=== PATIENT | female | born 1970 | race Caucasian/White ===

== ENCOUNTER 2023-03-15 14:30 | Inpatient (IN) | payer OTHER, SELFPAY ==
[2023-03-15] VITALS (7 sets, daily range): BP systolic 125–182; BP diastolic 73–97; PULSE 82–102; RESP 15–17; TEMP 36.4–36.8; O2SAT 96–100; BMI 24.2
--- NOTE | ~2023-03-15 | CT_ITS ---
EXAMINATION: CT HEAD WITHOUT CONTRAST CLINICAL INFORMATION: Altered mental status. COMPARISON: None available. TECHNIQUE: Contiguous axial imaging was performed from the skull base to vertex without intravenous administration of contrast. This CT examination was performed using dose optimization techniques as appropriate, variously including the following: *Automated exposure control *Adjustment of mA and/or kV according to patient size (this includes techniques or standardized protocols for targeted exams where dose is matched to indication/reason for exam; i.e. extremities or head) *Use of iterative reconstruction technique DLP: 642 mGy-cm FINDINGS: No intracranial hemorrhage, tumors or acute infarcts are noted. The ventricles and sulci are normal in size and configuration. No focal parenchymal lesions the brain or abnormal extra-axial fluid collections identified. The orbits and globes are normal in appearance. No significant opacification of the visualized paranasal sinuses, mastoid air cells and middle ear cavities. Mild hyperostosis frontalis interna incidentally noted. CT/CT head/brain wo IV con IMPRESSION: No acute intracranial abnormalities.
--- NOTE | 2023-03-15 14:47 | ECG_ITS ---
Test Reason : AMS Blood Pressure : / mmHG Vent. Rate : 084 BPM Atrial Rate : 084 BPM P-R Int : 136 ms QRS Dur : 082 ms QT Int : 392 ms P-R-T Axes : 054 072 -18 degrees QTc Int : 463 ms Normal sinus rhythm RSR' or QR pattern in V1 suggests right ventricular conduction delay Nonspecific T wave abnormality Abnormal ECG When compared with ECG of 13-MAY-2017 10:00, T wave inversion now evident in Inferior leads Anterolateral leads Referred By: Wilma Carpio Electronically Signed By:CHRISTINA MIMS MD
[2023-03-15 15:04] LABS: Glucose, Whole Blood 85 mg/dL (60-115)
[2023-03-15] MEDS: 0.9 % Sodium Chloride 1,000 ML 999 ML IV ×2 (15:20→18:24)
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
[2023-03-15 16:09] LABS: Appearance Urine Clear; Color Urine Yellow; Glucose Urine UA 100 mg/dL (Negative); Leukocyte Esterase Urine Negative (Negative); Nitrite Urine Negative (Negative); PH 5.5 (5.0-9.0); Specific Gravity - Urine 1.015 (1.005-1.025); Urine Blood Negative (Negative); Urine Ketones 40 mg/dL (Negative); Urine Protein Negative (Neg-Trace)
[2023-03-15 16:38] LABS: INTERNATIONAL NORM RATIO 1.3 (0.9-1.1)
[2023-03-15 16:40] LABS: Ammonia 27 umol/L (13-55)
[2023-03-15 16:41] LABS: Partial Thromboplastin Time 25.6 SEC (26.0-36.4)
[2023-03-15 16:46] LABS: Alanine Aminotransferase 63 U/L (0-31); Albumin Level 4.3 g/dL (3.5-5.0); Alkaline Phosphatase 224 U/L (39-117); Anion Gap 17 (12-20); Aspartate Amino Transferase 48 U/L (5-31); Blood Urea Nitrogen 11 mg/dL (9-16); Calcium 9.8 mg/dL (8.4-10.2); Carbon Dioxide 24 mmol/L (22-29); Chloride 105 mmol/L (96-108); Creatinine Clr Calc Pharmacy 90.9; Estimated Glomerular Filt Rate > 60; Ethanol < 10 mg/dL; Glucose Random 92 mg/dL (60-115); Magnesium 2.4 mg/dL (1.6-2.6); Potassium 3.6 mmol/L (3.3-5.1); Sodium 142 mmol/L (135-145); Total Protein 7.1 g/dL (6.5-8.0)
[2023-03-15 16:51] LABS: Acetaminophen LAB < 3 mcg/mL (<30)
[2023-03-15 16:56] LABS: Salicylate < 5.0 mg/dL (15-30); Troponin-I High Sensitivity < 2.7 ng/L (<3.5-17.0)
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
[2023-03-15 17:04] LABS: Influenza A PCR NEGATIVE (Negative); Influenza B PCR NEGATIVE (Negative); Resp Syncy Virus RNA Qual PCR NEGATIVE (Negative); SARS COV2 PCR INHOUSE NEGATIVE (Negative)
--- NOTE | 2023-03-15 17:08 | PC.NURSE ---
PHLEBOTOMY CONTACTED FOR CBC REDRAW
[2023-03-15 17:18] LABS: Amphetamine Screen Urine Not Detected (Not Detect); Barbiturates, Urine Not Detected (Not Detect); Benzodiazepines Screen Urine Not Detected (Not Detect); Cannabinoid Screen Urine Not Detected (Not Detect); Cocaine Screen Urine Not Detected (Not Detect); Fentanyl, urine Not Detected (Not Detect); Opiate Screen Urine Not Detected (Not Detect); Phencyclidine Screen Urine Not Detected (Not Detect)
[2023-03-15 17:27] LABS: Basophils Absolute Auto 0.1 X10*3/uL (0.0-0.2); Basophils Percent Auto 0.5 % (0-2); Eosinophils Absolute Auto 0.1 X10*3/uL (0.0-0.4); Eosinophils Percent Auto 1.2 % (0-4); Hematocrit 40.7 % (37.0-47.0); Hemoglobin 13.2 g/dl (12.0-16.0); Imm Gran Abs Auto 0.06 X10*3/uL (0.00-0.03); Imm Gran Pct Auto 0.6 % (0.0-0.4); Lymphocytes Absolute Auto 2.7 X10*3/uL (1.2-4.9); Lymphocytes Percent Auto 25.7 % (20-40); MANUAL DIFF FLAG SCAN; Mean Corpuscular HGB Conc 32.4 g/dl (31.0-35.0); Mean Corpuscular Hemoglobin 27.7 pg (27.0-33.0); Mean Corpuscular Volume 85.5 fL (80.0-98.0); Mean Platelet Volume 10.3 fL (9.4-12.3); Monocytes Absolute Auto 0.9 X10*3/uL (0.1-1.2); Monocytes Percent Auto 8.9 % (2-11); Neutrophils Absolute Auto 6.5 x10*3/uL (2.0-8.3); Neutrophils Percent Auto 63.1 % (45-73); PLT CLUMP 1; Red Blood Count 4.76 X10*6/uL (4.20-5.50); Red Cell Distribution Width 14.5 % (11.0-16.0); SCAN SMEAR FLAG 1
[2023-03-15 18:25] LABS: SLIDE REVIEW VERIFIED
--- NOTE | 2023-03-15 18:44 | PC.NURSE ---
LAB CONTACTED FOR SLIDE REVIEW OF CBC
[2023-03-15 18:50] LABS: Platelet Count 205 X10*3/uL (160-400); White Blood Count 10.3 X10*3/uL (4.8-10.8)
--- NOTE | 2023-03-15 20:51 | PC.NURSE ---
vss and up to date at this time. pt c/o no pain. pt still displays w/ ams. easy to redirect. incomprehensible speech when conversing w/ pt. pt transitioned into hospital bed w/ bed alarm turned on for safety precautions. pt attempted to get out of bed w/ no clothes on multiple times. pt repositioned to comfort. purewick in place. respirations remain even and unlabored. call otoole placed within reach.
--- NOTE | 2023-03-15 21:50 | PC.NURSE ---
pt currently resting/asleep in no apparent distress at this time. respirations even and unlabored. bed alarm turned on for safety precautions. call otoole placed within reach.
--- NOTE | 2023-03-16 02:12 | MHC.CARE ---
Pt. is currently uninterviewable. CARE team will assess her in the morning. If her son calls please get his call back number for collateral contact purpose.
[2023-03-16 05:29] VITALS: BP 158/90; PULSE 72; RESP 16; TEMP 36.7; O2SAT 96
--- NOTE | 2023-03-16 05:53 | PC.NURSE ---
pt slept most of the shift, repositioned in bed , helped with adl's and pt calm and cooperative, bed alarm set on bed
--- NOTE | 2023-03-16 09:20 | PC.NURSE ---
slept all morning, easily woken, skin wpd, states she has been taking all her meds, pharmacy contacted for med rec, denies hallucinations, denies si
[2023-03-16 09:22] VITALS: BP 155/77; PULSE 72; RESP 18; TEMP 36.5; O2SAT 97
[2023-03-16] MEDS: LORazepam 1 MG TABLET PO (14:49)
--- NOTE | 2023-03-16 15:27 | PHA.MEDREC ---
Pharmacy Consult ? Medication Reconciliation Pharmacy has completed the medication reconciliation. Spoke to patient and verified medication list. In regards to clozapine 200mg, patient said that she's on a low dose and she cuts the tablet in half daily. [place] text was sent to Dr. Doug Jones at 1300 03/16/23 for consultation but never heard back. Since patient has been filling 200mg tablets at [place], dose was put in as 100mg (because she cuts it in halves).
[2023-03-16 17:29] LABS: COVID-19 Test Negative (Negative); IDNOW Serial# 08D9AD1C
--- NOTE | 2023-03-16 18:09 | PC.NURSE ---
explained to patient about temporary change in dosing for clozaril.
[2023-03-16] MEDS: Magnesium Oxide 400 MG TABLET PO (18:27)
[2023-03-16] MEDS: Empagliflozin 10 MG TABLET PO (18:27)
[2023-03-16] MEDS: Atorvastatin Calcium 40 MG TABLET PO (18:27)
[2023-03-16] MEDS: metFORMIN HCl 1,000 MG TABLET 1000 MG PO (18:27)
[2023-03-16] MEDS: Milk of Magnesia 30 ML ORAL.SUSP PO (18:54)
[2023-03-16 20:12] VITALS: BP 150/83; PULSE 85; RESP 18; TEMP 36.8; O2SAT 95
[2023-03-16] MEDS: cloZAPine 25 MG TABLET 50 MG PO (20:16)
--- NOTE | 2023-03-16 20:21 | PC.NURSE ---
Patient is currently in her room, calm and quiet, compliant with HS medication, behavior non concerning, disposition per care team is section-12 inpatient bed search, labs completed/resulted, no distress observed/reported at this time, VSS, will continue to monitor.
[2023-03-17 06:13] VITALS: BP 121/89; PULSE 116; RESP 17; TEMP 36.3; O2SAT 95
[2023-03-17] MEDS: Omeprazole 20 MG CAPSULE.DR PO (06:19)
--- NOTE | 2023-03-17 06:22 | PC.NURSE ---
Patient slept through the night, incontinence of both bowel and bladder, showered, incontinence care and support provided, medication compliant, disposition is section 12 inpatient bed search, behavior non concerning, will continue to monitor./
[2023-03-17] MEDS: Ferrous Sulfate 324 MG TABLET.DR PO (09:32)
[2023-03-17] MEDS: Empagliflozin 10 MG TABLET PO (09:32)
[2023-03-17] MEDS: metFORMIN HCl 1,000 MG TABLET 1000 MG PO (09:33)
[2023-03-17] MEDS: Magnesium Oxide 400 MG TABLET PO (09:33)
[2023-03-17] MEDS: Atorvastatin Calcium 40 MG TABLET PO (09:33)
[2023-03-17] MEDS: LORazepam 1 MG TABLET PO ×2 (09:44→16:01)
--- NOTE | 2023-03-17 13:36 | PC.NURSE ---
Patient has been resting comfortably, respirations even and unlabored, skin pwd, offers no complaints at this time. Patient occasionally pacing around BH pod. Requesting Ativan at this time. This RN educated patient that it was not due till a later time. Patient agreeable to plan at this time. Patient has visitor
[2023-03-17 14:54] VITALS: RESP 18
[2023-03-17 16:55] LABS: Alanine Aminotransferase 69 U/L (0-31); Albumin Level 4.6 g/dL (3.5-5.0); Alkaline Phosphatase 250 U/L (39-117); Aspartate Amino Transferase 46 U/L (5-31); Bilirubin Direct 0.3 mg/dL (0.0-0.5); Bilirubin Total 0.7 mg/dL (0.0-1.0); Cholesterol 121 mg/dL (<200); HCG Quantitative 4 mIU/mL; HDL Cholesterol 36 mg/dL (>40); LDL Cholesterol Calculated 64 mg/dL (<100); Total Protein 7.8 g/dL (6.5-8.0); Triglycerides 106 mg/dL (<150)
[2023-03-17] MEDS: Nicotine 21 MG PATCH.TD24 TRANSDERMA (16:57)
[2023-03-17 17:08] LABS: Estimated Average Glucose 120 mg/dL; Hemoglobin A1C 150.7072 umol/L; Hemoglobin A1c % 5.8 % (<6.0)
[2023-03-17 18:05] VITALS: BP 168/77; PULSE 100; RESP 16; TEMP 36.6; O2SAT 98; BMI 26.6
[2023-03-17] MEDS: hydrOXYzine HCL 25 MG TABLET PO (18:56)
[2023-03-17] MEDS: LORazepam 1 MG TABLET 2 MG PO (18:57)
[2023-03-17] MEDS: Acetaminophen 325 MG TABLET 650 MG PO (18:57)
[2023-03-17] MEDS: cloZAPine 100 MG TABLET PO (18:58)
--- NOTE | 2023-03-17 22:40 | PC.ADMIT ---
Pt is a 52 year old female admitted for Si, Disorganization and med noncompliant. Pt is alert and oriented to self, Vitals signs are stable, Covid negative, Tox screen is negative. Pt appears lethargic and sedated during admission assessment. Pt denies depression and anxiety. Impulse, insight and judgment is poor. Speech is tangential, regular rhythm but low tone. Pt refused flu shot .Some laboratory levels are off. Pt is in her room resting. Admission orders obtained.
[2023-03-18] MEDS: Omeprazole 20 MG CAPSULE.DR PO (06:09)
[2023-03-18] MEDS: Empagliflozin 10 MG TABLET PO (09:13)
[2023-03-18] MEDS: Atorvastatin Calcium 40 MG TABLET PO (09:13)
[2023-03-18] MEDS: Magnesium Oxide 400 MG TABLET PO (09:13)
[2023-03-18] MEDS: Ferrous Sulfate 324 MG TABLET.DR PO (09:13)
[2023-03-18] MEDS: Thiamine HCL 100 MG TABLET PO (09:13)
[2023-03-18] MEDS: metFORMIN HCl 1,000 MG TABLET 1000 MG PO (09:13)
[2023-03-18] MEDS: Folic Acid 1 MG TABLET PO (09:13)
[2023-03-18 09:35] VITALS: BP 123/81; PULSE 107; RESP 16; TEMP 36.6; O2SAT 98
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
[2023-03-18] MEDS: LORazepam 1 MG TABLET 2 MG PO (16:42)
[2023-03-18 16:54] VITALS: BP 134/83; PULSE 109; RESP 16; TEMP 36.3; O2SAT 94
[2023-03-18] MEDS: LORazepam 1 MG TABLET PO (20:01)
[2023-03-18] MEDS: cloZAPine 100 MG TABLET PO (20:01)
[2023-03-19] MEDS: Omeprazole 20 MG CAPSULE.DR PO (06:28)
[2023-03-19 08:44] VITALS: BP 120/84; PULSE 107; RESP 16; TEMP 36.4; O2SAT 98
[2023-03-19] MEDS: Magnesium Oxide 400 MG TABLET PO (09:02)
[2023-03-19] MEDS: Atorvastatin Calcium 40 MG TABLET PO (09:03)
[2023-03-19] MEDS: Folic Acid 1 MG TABLET PO (09:03)
[2023-03-19] MEDS: metFORMIN HCl 1,000 MG TABLET 1000 MG PO (09:03)
[2023-03-19] MEDS: Thiamine HCL 100 MG TABLET PO (09:03)
[2023-03-19] MEDS: Ferrous Sulfate 324 MG TABLET.DR PO (09:03)
[2023-03-19] MEDS: Empagliflozin 10 MG TABLET PO (09:03)
[2023-03-19] MEDS: Acetaminophen 325 MG TABLET 650 MG PO ×2 (11:01→17:55)
[2023-03-19] MEDS: hydrOXYzine HCL 25 MG TABLET PO (11:02)
--- NOTE | 2023-03-19 14:36 | P.PNPSI_ITS ---
Subjective Subjective Date of Service: 03/19/23 Reason For Visit: Dysregulated Subjective Notes: Conditional Voluntary Healthcare Proxy: No Guardianship: No Medical Problems Affecting Mental Status: No Interim History: Isolative in her room. Rhyming sentences at times which seem to offer her comfort Distracted, some confusion, sadness, states she is not sure how this illness became so overpowering Discussion, offered support. Denies medication SE, adverse effects Medication Compliance: Yes Side effects from medications: No Attending Groups: No Review of Systems Acute medical concerns: No Review of Systems Review of Systems Yes Unobtainable due to mental status Mental Status Exam Mental Status Exam Patient Appearance: Fatigued, Disheveled and Bizarre Patient Orientation: Person and Place Level of Consciousness: Alert Patient Behavior: Talkative, Cooperative, Restless, Anxious, Fearful, Avoidant, Fatigued, Distractible, Confused and Poor Eye Contact Mood Description: Apathetic, Suspicious, Withdrawn, Depressed, Fearful, Anxious, Labile, Flat, Nervous, Apprehensive and Expansive Affect Description: Labile Patient Cognition Impaired: No Ability to Follow Directions: Fair Speech Pattern: Perseverating, Spontaneous Speech, Rambling, Soft-Spoken, Rapid, Excessive, Pressured and Poor Articulation Memory Description: Remote Impaired Hallucinations: Auditory Delusions: Paranoid Ideation and Present Perceptual Disturbances: Depersonalization and Derealization Thought Process: Racing, Distracted and Rumination Thought Content: positive for Flight of Ideas, positive for Racing, positive for Circumstantial, positive for Perseveration, positive for Preoccupation, positive for Loose Associations, positive for Thought Blocking, positive for Tangential, positive for Disorganized and positive for Evasive Depressive Symptoms: Increased Anxiety, Hopelessness, Unhappiness, Increased Fatigue, Low Self Esteem, Loss of Energy and Difficulty Concentrating Abnormal Motor Activity Signs and Symptoms: Restlessness Judgement: Poor Diagnostics Vital Signs (24Hr): Vital Signs - 24 hr 03/18/23 16:54 03/19/23 08:44 Temperature 97.4 F 97.5 F Pulse Rate 109 H 107 H Respiratory Rate 16 16 Blood Pressure 134/83 120/84 Pulse Oximetry 94 98 Oxygen Delivery Method Room Air Room Air BMI result Body Mass Index 26.6 Labs 03/15/23 17:16 03/15/23 16:16 Labs: Laboratory Results - last 48 hr 03/17/23 16:18 Estimat Average Glucose 120 Hemoglobin A1c % 5.8 Total Bilirubin 0.7 Direct Bilirubin 0.3 AST 46 H ALT 69 H Alkaline Phosphatase 250 H Total Protein 7.8 Albumin 4.6 Triglycerides 106 Cholesterol 121 LDL Cholesterol, Calc 64 HDL Cholesterol 36 L Beta HCG, Quant 4 Imaging Radiology Impressions: ITS Impressions Head CT 03/15/23 15:32 IMPRESSION: No acute intracranial abnormalities. Medications Medications Current Medications Acetaminophen (Acetaminophen 325 Mg Tablet) 650 mg PO Q6H PRN PRN Reason: Headache/Pain Mild Scale (1-3) Last Admin: 03/19/23 11:01 Dose: 650 mg Al Hydroxide/Mg Hydroxide (Magnesium Hydrox/Alum Hydrox 30 Ml Oral.Susp) 30 ml PO Q6H PRN PRN Reason: Heartburn/Nausea Albuterol Sulfate (Albuterol Sulfate 90 Mcg 8 Gm Inhaler) 2 puff INHALE Q6H PRN PRN Reason: Wheezing Atorvastatin Calcium (Atorvastatin Calcium 40 Mg Tablet) 40 mg PO DAILY [facility] Last Admin: 03/19/23 09:03 Dose: 40 mg Clozapine (Clozapine 100 Mg Tablet) 100 mg PO BEDTIME [facility] Last Admin: 03/18/23 20:01 Dose: 100 mg Empagliflozin (Empagliflozin 10 Mg Tablet) 10 mg PO DAILY [facility] Last Admin: 03/19/23 09:03 Dose: 10 mg Ferrous Sulfate (Ferrous Sulfate 324 Mg Tablet.) 324 mg PO DAILY [facility] Last Admin: 03/19/23 09:03 Dose: 324 mg Folic Acid (Folic Acid 1 Mg Tablet) 1 mg PO DAILY [facility] Last Admin: 03/19/23 09:03 Dose: 1 mg Hydroxyzine HCl (Hydroxyzine Hcl 25 Mg Tablet) 25 mg PO Q6H PRN PRN Reason: Anxiety Last Admin: 03/19/23 11:02 Dose: 25 mg Lorazepam (Lorazepam 1 Mg Tablet) 1 mg PO Q2H PRN PRN Reason: CIWA 6-10 Last Admin: 03/18/23 20:01 Dose: 1 mg Lorazepam (Lorazepam 1 Mg Tablet) 2 mg PO Q2H PRN PRN Reason: CIWA 11 and above Last Admin: 03/18/23 16:42 Dose: 2 mg Lorazepam (Lorazepam 1 Mg Tablet) 1 mg PO TID PRN PRN Reason: Anxiety Magnesium Hydroxide (Milk Of Magnesia 30 Ml Oral.Susp) 30 ml PO DAILY PRN PRN Reason: Constipation Magnesium Oxide (Magnesium Oxide 400 Mg Tablet) 400 mg PO DAILY [facility] Last Admin: 03/19/23 09:02 Dose: 400 mg Metformin HCl (Metformin Hcl 1,000 Mg Tablet) 1,000 mg PO DAILY [facility] Last Admin: 03/19/23 09:03 Dose: 1,000 mg Nicotine (Nicotine 21 Mg Patch.Td24) 21 mg TRANSDERMA DAILY PRN PRN Reason: smoking cessation Last Admin: 03/17/23 16:57 Dose: 21 mg Nicotine Polacrilex (Nicotine Polacrilex 2 Mg Gum) 4 mg BUCCAL Q2H PRN PRN Reason: Nicotine Cravings Olanzapine (Olanzapine 5 Mg Tablet) 5 mg PO TID PRN PRN Reason: agitation Omeprazole (Omeprazole 20 Mg Capsule.Dr) 20 mg PO DAILY@0630 [facility] Last Admin: 03/19/23 06:28 Dose: 20 mg Thiamine HCl (Thiamine Hcl 100 Mg Tablet) 100 mg PO DAILY [facility] Last Admin: 03/19/23 09:03 Dose: 100 mg Trazodone HCl (Trazodone Hcl 50 Mg Tablet) 50 mg PO BEDTIME MRX1 PRN PRN Reason: Insomnia Allergies Allergies Allergy/AdvReac Type Severity Reaction Status Date / Time Sulfa (Sulfonamide Allergy Severe THROAT Verified 03/15/23 18:22 Antibiotics) SWELLING,RASH [Sulfa (Sulfonamides)] sulfamethoxazole Allergy Severe THROAT Verified 03/15/23 18:22 [From Bactrim] SWELLING,RASH trimethoprim [From Bactrim] Allergy Severe THROAT Verified 03/15/23 18:22 SWELLING,RASH morphine [MORPHINE] Allergy Unknown ANAPHYLAXIS Verified 03/15/23 18:22 Assessment & Plan Assessment & Plan (1) Schizoaffective disorder, bipolar type: Status: Acute Code(s): F25.0 - Schizoaffective disorder, bipolar type Plan 52 yo female, hx of schizoaffective disorder, bipolar type, PTSD. Pt has stopped medications with decompensation RISK CONSULTING TREASURY DIRECTOR. Plan: Re-establish regime Collateral contact, treatment team, mom, Humaira Otero [phone] Diagnostics as needed Encourage milieu involvement. 03/19/23 Continue regime, team reports noncompliance RISK CONSULTING TREASURY DIRECTOR ~4-6 days. Adjustments moving forward. Patient educated on: therapeutic strategies Informed Consent: understands Reason for continued inpatient stay Substantial Risk for: rapid decompensation Time Spent With Patient Time: Total time managing care of this patient today ____ minutes.
[2023-03-19 16:55] VITALS: BP 139/91; PULSE 112; RESP 16; TEMP 36.9; O2SAT 98
[2023-03-19] MEDS: LORazepam 1 MG TABLET PO (17:52)
[2023-03-19] MEDS: cloZAPine 100 MG TABLET PO (21:39)
[2023-03-19] MEDS: traZODone HCL 50 MG TABLET PO (21:45)
[2023-03-19] MEDS: OLANZapine 5 MG TABLET PO (21:45)
[2023-03-20] MEDS: Omeprazole 20 MG CAPSULE.DR PO (06:11)
[2023-03-20 08:25] VITALS: BP 148/62; PULSE 96; RESP 16; TEMP 36.1; O2SAT 96
[2023-03-20] MEDS: Folic Acid 1 MG TABLET PO (08:39)
[2023-03-20] MEDS: Empagliflozin 10 MG TABLET PO (08:39)
[2023-03-20] MEDS: Atorvastatin Calcium 40 MG TABLET PO (08:39)
[2023-03-20] MEDS: Ferrous Sulfate 324 MG TABLET.DR PO (08:39)
[2023-03-20] MEDS: metFORMIN HCl 1,000 MG TABLET 1000 MG PO (08:39)
[2023-03-20] MEDS: Magnesium Oxide 400 MG TABLET PO (08:39)
[2023-03-20] MEDS: Thiamine HCL 100 MG TABLET PO (08:39)
[2023-03-20] MEDS: LORazepam 1 MG TABLET PO ×2 (15:38→21:09)
[2023-03-20] MEDS: Nicotine 21 MG PATCH.TD24 TRANSDERMA (15:39)
--- NOTE | 2023-03-20 16:11 | P.PNPSI_ITS ---
Subjective Subjective Date of Service: 03/20/23 Reason For Visit: Dysregulated Interim History: Remains with lability and disorganization, yet reports she is happier today. Message left for [facility] team to discuss medications. Isolative, continues rhyming, team seeing lability and underlying christian content. Better eye contact today, able to hold a conversation, although scattered and tangential. Medication Compliance: Yes Side effects from medications: No Attending Groups: No Review of Systems Acute medical concerns: No Review of Systems Review of Systems Yes Unobtainable due to mental status Mental Status Exam Mental Status Exam Patient Appearance: Fatigued, Disheveled and Bizarre Patient Orientation: Person and Place Level of Consciousness: Alert Patient Behavior: Talkative, Cooperative, Restless, Anxious, Fearful, Avoidant, Fatigued, Distractible, Confused and Poor Eye Contact Mood Description: Apathetic, Suspicious, Withdrawn, Depressed, Fearful, Anxious, Labile, Flat, Nervous, Apprehensive and Expansive Affect Description: Labile Patient Cognition Impaired: No Ability to Follow Directions: Fair Speech Pattern: Perseverating, Spontaneous Speech, Rambling, Soft-Spoken, Rapid, Excessive, Pressured and Poor Articulation Memory Description: Remote Impaired Hallucinations: Auditory Delusions: Paranoid Ideation and Present Perceptual Disturbances: Depersonalization and Derealization Thought Process: Racing, Distracted and Rumination Thought Content: positive for Flight of Ideas, positive for Racing, positive for Circumstantial, positive for Perseveration, positive for Preoccupation, positive for Loose Associations, positive for Thought Blocking, positive for Tangential, positive for Disorganized and positive for Evasive Depressive Symptoms: Increased Anxiety, Hopelessness, Unhappiness, Increased Fatigue, Low Self Esteem, Loss of Energy and Difficulty Concentrating Abnormal Motor Activity Signs and Symptoms: Restlessness Judgement: Poor Diagnostics Vital Signs (24Hr): Vital Signs - 24 hr 03/19/23 16:55 03/20/23 08:25 Temperature 98.5 F 97.0 F Pulse Rate 112 H 96 Respiratory Rate 16 16 Blood Pressure 139/91 H 148/62 H Pulse Oximetry 98 96 Oxygen Delivery Method Room Air Room Air BMI result Body Mass Index 26.6 Labs 03/15/23 17:16 03/15/23 16:16 Imaging Radiology Impressions: ITS Impressions Head CT 03/15/23 15:32 IMPRESSION: No acute intracranial abnormalities. Medications Medications Current Medications Acetaminophen (Acetaminophen 325 Mg Tablet) 650 mg PO Q6H PRN PRN Reason: Headache/Pain Mild Scale (1-3) Last Admin: 03/19/23 17:55 Dose: 650 mg Al Hydroxide/Mg Hydroxide (Magnesium Hydrox/Alum Hydrox 30 Ml Oral.Susp) 30 ml PO Q6H PRN PRN Reason: Heartburn/Nausea Albuterol Sulfate (Albuterol Sulfate 90 Mcg 8 Gm Inhaler) 2 puff INHALE Q6H PRN PRN Reason: Wheezing Atorvastatin Calcium (Atorvastatin Calcium 40 Mg Tablet) 40 mg PO DAILY [facility] Last Admin: 03/20/23 08:39 Dose: 40 mg Clozapine (Clozapine 100 Mg Tablet) 100 mg PO BEDTIME [facility] Last Admin: 03/19/23 21:39 Dose: 100 mg Empagliflozin (Empagliflozin 10 Mg Tablet) 10 mg PO DAILY [facility] Last Admin: 03/20/23 08:39 Dose: 10 mg Ferrous Sulfate (Ferrous Sulfate 324 Mg Tablet.Dr) 324 mg PO DAILY [facility] Last Admin: 03/20/23 08:39 Dose: 324 mg Folic Acid (Folic Acid 1 Mg Tablet) 1 mg PO DAILY [facility] Last Admin: 03/20/23 08:39 Dose: 1 mg Hydroxyzine HCl (Hydroxyzine Hcl 25 Mg Tablet) 25 mg PO Q6H PRN PRN Reason: Anxiety Last Admin: 03/19/23 11:02 Dose: 25 mg Lorazepam (Lorazepam 1 Mg Tablet) 1 mg PO Q2H PRN PRN Reason: CIWA 6-10 Last Admin: 03/18/23 20:01 Dose: 1 mg Lorazepam (Lorazepam 1 Mg Tablet) 2 mg PO Q2H PRN PRN Reason: CIWA 11 and above Last Admin: 03/18/23 16:42 Dose: 2 mg Lorazepam (Lorazepam 1 Mg Tablet) 1 mg PO TID PRN PRN Reason: Anxiety Last Admin: 03/20/23 15:38 Dose: 1 mg Magnesium Hydroxide (Milk Of Magnesia 30 Ml Oral.Susp) 30 ml PO DAILY PRN PRN Reason: Constipation Magnesium Oxide (Magnesium Oxide 400 Mg Tablet) 400 mg PO DAILY [facility] Last Admin: 03/20/23 08:39 Dose: 400 mg Metformin HCl (Metformin Hcl 1,000 Mg Tablet) 1,000 mg PO DAILY [facility] Last Admin: 03/20/23 08:39 Dose: 1,000 mg Nicotine (Nicotine 21 Mg Patch.Td24) 21 mg TRANSDERMA DAILY PRN PRN Reason: smoking cessation Last Admin: 03/20/23 15:39 Dose: 21 mg Nicotine Polacrilex (Nicotine Polacrilex 2 Mg Gum) 4 mg BUCCAL Q2H PRN PRN Reason: Nicotine Cravings Olanzapine (Olanzapine 5 Mg Tablet) 5 mg PO TID PRN PRN Reason: agitation Last Admin: 03/19/23 21:45 Dose: 5 mg Omeprazole (Omeprazole 20 Mg Capsule.Dr) 20 mg PO DAILY@0630 [facility] Last Admin: 03/20/23 06:11 Dose: 20 mg Thiamine HCl (Thiamine Hcl 100 Mg Tablet) 100 mg PO DAILY [facility] Last Admin: 03/20/23 08:39 Dose: 100 mg Trazodone HCl (Trazodone Hcl 50 Mg Tablet) 50 mg PO BEDTIME MRX1 PRN PRN Reason: Insomnia Last Admin: 03/19/23 21:45 Dose: 50 mg Allergies Allergies Allergy/AdvReac Type Severity Reaction Status Date / Time Sulfa (Sulfonamide Allergy Severe THROAT Verified 03/15/23 18:22 Antibiotics) SWELLING,RASH [Sulfa (Sulfonamides)] sulfamethoxazole Allergy Severe THROAT Verified 03/15/23 18:22 [From Bactrim] SWELLING,RASH trimethoprim [From Bactrim] Allergy Severe THROAT Verified 03/15/23 18:22 SWELLING,RASH morphine [MORPHINE] Allergy Unknown ANAPHYLAXIS Verified 03/15/23 18:22 Assessment & Plan Assessment & Plan (1) Schizoaffective disorder, bipolar type: Status: Acute Code(s): F25.0 - Schizoaffective disorder, bipolar type Plan 52 yo female, hx of schizoaffective disorder, bipolar type, PTSD. 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 Plan: Re-establish regime Collateral contact, treatment team, mom, Humaira Otero [phone] Diagnostics as needed Encourage milieu involvement. 03/19/23 Continue regime, team reports noncompliance HACK DRIVER ~4-6 days. Adjustments moving forward. 03/19/23 Continue regime and plan. Pt reporting some improvement in her mood today. Patient educated on: therapeutic strategies Informed Consent: further education needed Reason for continued inpatient stay Substantial Risk for: rapid decompensation Time Spent With Patient Time: Total time managing care of this patient today ____ minutes.
[2023-03-20] MEDS: OLANZapine 5 MG TABLET PO (16:33)
[2023-03-20] MEDS: Acetaminophen 325 MG TABLET 650 MG PO (16:38)
[2023-03-20 16:39] VITALS: BP 121/87; PULSE 113; TEMP 36.1
[2023-03-20] MEDS: cloZAPine 100 MG TABLET PO (21:09)
[2023-03-20] MEDS: traZODone HCL 50 MG TABLET PO (21:09)
[2023-03-21] MEDS: Omeprazole 20 MG CAPSULE.DR PO (06:09)
[2023-03-21 08:15] VITALS: BP 148/79; PULSE 96; RESP 18; TEMP 36.8; O2SAT 95
[2023-03-21] MEDS: Magnesium Oxide 400 MG TABLET PO (08:40)
[2023-03-21] MEDS: metFORMIN HCl 1,000 MG TABLET 1000 MG PO (08:41)
[2023-03-21] MEDS: Thiamine HCL 100 MG TABLET PO (08:41)
[2023-03-21] MEDS: Ferrous Sulfate 324 MG TABLET.DR PO (08:41)
[2023-03-21] MEDS: Empagliflozin 10 MG TABLET PO (08:41)
[2023-03-21] MEDS: Atorvastatin Calcium 40 MG TABLET PO (08:41)
[2023-03-21] MEDS: Folic Acid 1 MG TABLET PO (08:42)
--- NOTE | 2023-03-21 09:30 | P.PNPSI_ITS ---
Subjective Subjective Date of Service: 03/21/23 Reason For Visit: Dysregulated Interim History: Met with patient; discussed with team; reviewed chart Patient disorganized, labile; visitor came and patient's for at him and would not be with him. Earlier patient open the freezer and stuck her head in it, standing there and needed to be redirected. Net Web Developer approach patient while sitting on a chair, curled up in crying. She says I miss my children at 21 and 23.... I lost me to take care of my children... I am not ready for 53, for my birthday... She then said something about a cubby hole... Net Web Developer tries to inquire to understand better but patient remains tearful and says she just needs to cry some more but will get better on her own. Mental Status Exam Mental Status Exam Narrative: Pt is alert and oriented; behavior disorganized, irritable, tearful; dressed in hospital attire disheveled, unkempt hair; mood is described as depressed and affect congruent, downcast and tearful; eye contact appropriate; Speech is normal rate, volume and prosody and not pressured; both psychomotor agitation/retardation present; thought process can be goal directed but more disorganized; Thought content seems to be on her children, reflecting on her life; unclear regarding SI/HI. Seems to be some delusional/paranoid thinking; internally preoccupied. Patients insight and judgment impaired Diagnostics Vital Signs (24Hr): Vital Signs - 24 hr 03/20/23 16:39 Temperature 97.0 F Pulse Rate 113 H Blood Pressure 121/87 BMI result Body Mass Index 26.6 Labs 03/15/23 17:16 03/22/23 08:30 Imaging Radiology Impressions: ITS Impressions Head CT 03/15/23 15:32 IMPRESSION: No acute intracranial abnormalities. Medications Medications Current Medications Acetaminophen (Acetaminophen 325 Mg Tablet) 650 mg PO Q6H PRN PRN Reason: Headache/Pain Mild Scale (1-3) Last Admin: 03/20/23 16:38 Dose: 650 mg Al Hydroxide/Mg Hydroxide (Magnesium Hydrox/Alum Hydrox 30 Ml Oral.Susp) 30 ml PO Q6H PRN PRN Reason: Heartburn/Nausea Albuterol Sulfate (Albuterol Sulfate 90 Mcg 8 Gm Inhaler) 2 puff INHALE Q6H PRN PRN Reason: Wheezing Atorvastatin Calcium (Atorvastatin Calcium 40 Mg Tablet) 40 mg PO DAILY [facility] Last Admin: 03/21/23 08:41 Dose: 40 mg Clozapine (Clozapine 100 Mg Tablet) 100 mg PO BEDTIME [facility] Last Admin: 03/20/23 21:09 Dose: 100 mg Empagliflozin (Empagliflozin 10 Mg Tablet) 10 mg PO DAILY [facility] Last Admin: 03/21/23 08:41 Dose: 10 mg Ferrous Sulfate (Ferrous Sulfate 324 Mg Tablet.) 324 mg PO DAILY [facility] Last Admin: 03/21/23 08:41 Dose: 324 mg Folic Acid (Folic Acid 1 Mg Tablet) 1 mg PO DAILY [facility] Last Admin: 03/21/23 08:42 Dose: 1 mg Hydroxyzine HCl (Hydroxyzine Hcl 25 Mg Tablet) 25 mg PO Q6H PRN PRN Reason: Anxiety Last Admin: 03/19/23 11:02 Dose: 25 mg Lorazepam (Lorazepam 1 Mg Tablet) 1 mg PO TID PRN PRN Reason: Anxiety Last Admin: 03/20/23 15:38 Dose: 1 mg Magnesium Hydroxide (Milk Of Magnesia 30 Ml Oral.Susp) 30 ml PO DAILY PRN PRN Reason: Constipation Magnesium Oxide (Magnesium Oxide 400 Mg Tablet) 400 mg PO DAILY [facility] Last Admin: 03/21/23 08:40 Dose: 400 mg Metformin HCl (Metformin Hcl 1,000 Mg Tablet) 1,000 mg PO DAILY [facility] Last Admin: 03/21/23 08:41 Dose: 1,000 mg Nicotine (Nicotine 21 Mg Patch.Td24) 21 mg TRANSDERMA DAILY PRN PRN Reason: smoking cessation Last Admin: 03/20/23 15:39 Dose: 21 mg Nicotine Polacrilex (Nicotine Polacrilex 2 Mg Gum) 4 mg BUCCAL Q2H PRN PRN Reason: Nicotine Cravings Olanzapine (Olanzapine 5 Mg Tablet) 5 mg PO TID PRN PRN Reason: agitation Last Admin: 03/20/23 16:33 Dose: 5 mg Omeprazole (Omeprazole 20 Mg Capsule.) 20 mg PO DAILY@0630 [facility] Last Admin: 03/21/23 06:09 Dose: 20 mg Thiamine HCl (Thiamine Hcl 100 Mg Tablet) 100 mg PO DAILY [facility] Last Admin: 03/21/23 08:41 Dose: 100 mg Trazodone HCl (Trazodone Hcl 50 Mg Tablet) 50 mg PO BEDTIME MRX1 PRN PRN Reason: Insomnia Last Admin: 03/20/23 21:09 Dose: 50 mg Allergies Allergies Allergy/AdvReac Type Severity Reaction Status Date / Time Sulfa (Sulfonamide Allergy Severe THROAT Verified 03/15/23 18:22 Antibiotics) SWELLING,RASH [Sulfa (Sulfonamides)] sulfamethoxazole Allergy Severe THROAT Verified 03/15/23 18:22 [From Bactrim] SWELLING,RASH trimethoprim [From Bactrim] Allergy Severe THROAT Verified 03/15/23 18:22 SWELLING,RASH morphine [MORPHINE] Allergy Unknown ANAPHYLAXIS Verified 03/15/23 18:22 Assessment & Plan Assessment & Plan (1) Schizoaffective disorder, bipolar type: Status: Acute Code(s): F25.0 - Schizoaffective disorder, bipolar type Plan 52 yo female, hx of schizoaffective disorder, bipolar type, PTSD. 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 Plan: Re-establish regime Collateral contact, treatment team, mom, Humaira Otero [phone] Diagnostics as needed Encourage milieu involvement. 03/19/23 Continue regime, team reports noncompliance TRANSPORTATION DIRECTOR ~4-6 days. Adjustments moving forward. 03/19/23 Continue regime and plan. Pt reporting some improvement in her mood today. 03/21/23 Patient disorganized, labile; visitor came and patient's for at him and would not be with him. Earlier patient open the freezer and stuck her head in it, standing there and needed to be redirected. Net Web Developer approach patient while sitting on a chair, curled up in crying. She says I miss my children at 22 and 23.... I lost me to take care of my children... I am not ready for 53, for my birthday... She then said something about a cubby hole... Net Web Developer tries to inquire to understand better but patient remains tearful and says she just needs to cry some more but will get better on her own. -continue current regimen for now; adjustments have been made and may need time to work Patient educated on: diagnosis Informed Consent: does not understand Reason for continued inpatient stay Substantial Risk for: inability to function Time Spent With Patient Time: Total time managing care of this patient today ____ minutes.
[2023-03-21] MEDS: Nicotine 21 MG PATCH.TD24 TRANSDERMA (12:37)
[2023-03-21] MEDS: LORazepam 1 MG TABLET PO ×2 (12:38→15:04)
[2023-03-21] MEDS: OLANZapine 5 MG TABLET PO (13:56)
[2023-03-21] MEDS: Milk of Magnesia 30 ML ORAL.SUSP PO (13:56)
[2023-03-21] MEDS: hydrOXYzine HCL 25 MG TABLET PO (15:03)
[2023-03-21 16:25] VITALS: BP 131/92; PULSE 135; TEMP 36.2; O2SAT 93
[2023-03-21] MEDS: diphenhydrAMINE HCL 25 MG CAPSULE 50 MG PO (16:26)
[2023-03-21] MEDS: HaloperidoL 5 MG TABLET PO (16:26)
[2023-03-21] MEDS: Acetaminophen 325 MG TABLET 650 MG PO (19:32)
[2023-03-21] MEDS: cloZAPine 100 MG TABLET PO (19:36)
[2023-03-22] MEDS: Omeprazole 20 MG CAPSULE.DR PO (06:10)
[2023-03-22 07:47] LABS: Neut%MD 52.6 %; Neutrophils Absolute Auto 3.7 x10*3/uL (2.0-8.3); WBCANC 7.1 X10*3/uL
[2023-03-22 08:00] VITALS: BP 134/74; PULSE 89; RESP 18; TEMP 35.9; O2SAT 98
[2023-03-22] MEDS: OLANZapine 5 MG TABLET PO ×2 (08:31→14:19)
[2023-03-22] MEDS: Thiamine HCL 100 MG TABLET PO (08:32)
[2023-03-22] MEDS: Atorvastatin Calcium 40 MG TABLET PO (08:32)
[2023-03-22] MEDS: LORazepam 1 MG TABLET PO ×3 (08:32→17:56)
[2023-03-22] MEDS: Ferrous Sulfate 324 MG TABLET.DR PO (08:32)
[2023-03-22] MEDS: Folic Acid 1 MG TABLET PO (08:32)
[2023-03-22] MEDS: Empagliflozin 10 MG TABLET PO (08:33)
[2023-03-22] MEDS: Magnesium Oxide 400 MG TABLET PO (08:33)
[2023-03-22] MEDS: metFORMIN HCl 1,000 MG TABLET 1000 MG PO (08:33)
[2023-03-22 08:51] LABS: Creatinine Clr Calc Pharmacy 75.5; Estimated Glomerular Filt Rate > 60
--- NOTE | 2023-03-22 12:05 | HO.PSYCHPN ---
Subjective Subjective Date of Service: 03/22/23 Reason For Visit: Dysregulated Interim History: Met with patient; discussed with team Remains disorganized; patient talking nonsense, says I am going to be 49 for but that is when I turn 54 I can not [address] Abdiel Meyers. Sometimes crying, sometimes dancing in the milieu Mental Status Exam Mental Status Exam Narrative: Pt is alert and oriented; behavior disorganized, irritable, tearful; dressed in hospital attire disheveled, unkempt hair; mood is described as depressed and affect congruent, downcast and tearful; eye contact appropriate; Speech is normal rate, volume and prosody and not pressured; both psychomotor agitation/retardation present; thought process can be goal directed but more disorganized; Thought content seems to be on her children, reflecting on her life; unclear regarding SI/HI. Seems to be some delusional/paranoid thinking; internally preoccupied. Patients insight and judgment impaired Diagnostics Vital Signs (24Hr): Vital Signs - 24 hr 03/21/23 16:25 03/22/23 08:00 Temperature 97.1 F 96.7 F L Pulse Rate 135 H 89 Respiratory Rate 18 Blood Pressure 131/92 H 134/74 Pulse Oximetry 93 98 Oxygen Delivery Method Room Air Room Air BMI result Body Mass Index 26.6 Labs 03/15/23 17:16 03/22/23 08:30 Labs: Laboratory Results - last 48 hr 03/22/23 03/22/23 07:20 08:30 Absolute Neuts (auto) 3.7 Creatinine 0.89 Estim Creat Clear Calc 75.5 Estimated GFR > 60 Imaging Radiology Impressions: ITS Impressions Head CT 03/15/23 15:32 IMPRESSION: No acute intracranial abnormalities. Medications Medications Current Medications Acetaminophen (Acetaminophen 325 Mg Tablet) 650 mg PO Q6H PRN PRN Reason: Headache/Pain Mild Scale (1-3) Last Admin: 03/21/23 19:32 Dose: 650 mg Al Hydroxide/Mg Hydroxide (Magnesium Hydrox/Alum Hydrox 30 Ml Oral.Susp) 30 ml PO Q6H PRN PRN Reason: Heartburn/Nausea Albuterol Sulfate (Albuterol Sulfate 90 Mcg 8 Gm Inhaler) 2 puff INHALE Q6H PRN PRN Reason: Wheezing Atorvastatin Calcium (Atorvastatin Calcium 40 Mg Tablet) 40 mg PO DAILY [facility] Last Admin: 03/22/23 08:32 Dose: 40 mg Clozapine (Clozapine 100 Mg Tablet) 100 mg PO BEDTIME [facility] Last Admin: 03/21/23 19:36 Dose: 100 mg Empagliflozin (Empagliflozin 10 Mg Tablet) 10 mg PO DAILY [facility] Last Admin: 03/22/23 08:33 Dose: 10 mg Ferrous Sulfate (Ferrous Sulfate 324 Mg Tablet.) 324 mg PO DAILY [facility] Last Admin: 03/22/23 08:32 Dose: 324 mg Folic Acid (Folic Acid 1 Mg Tablet) 1 mg PO DAILY [facility] Last Admin: 03/22/23 08:32 Dose: 1 mg Hydroxyzine HCl (Hydroxyzine Hcl 25 Mg Tablet) 25 mg PO Q6H PRN PRN Reason: Anxiety Last Admin: 03/21/23 15:03 Dose: 25 mg Lorazepam (Lorazepam 1 Mg Tablet) 1 mg PO TID PRN PRN Reason: Anxiety Last Admin: 03/22/23 08:32 Dose: 1 mg Magnesium Hydroxide (Milk Of Magnesia 30 Ml Oral.Susp) 30 ml PO DAILY PRN PRN Reason: Constipation Last Admin: 03/21/23 13:56 Dose: 30 ml Magnesium Oxide (Magnesium Oxide 400 Mg Tablet) 400 mg PO DAILY [facility] Last Admin: 03/22/23 08:33 Dose: 400 mg Metformin HCl (Metformin Hcl 1,000 Mg Tablet) 1,000 mg PO DAILY [facility] Last Admin: 03/22/23 08:33 Dose: 1,000 mg Nicotine (Nicotine 21 Mg Patch.Td24) 21 mg TRANSDERMA DAILY PRN PRN Reason: smoking cessation Last Admin: 03/21/23 12:37 Dose: 21 mg Nicotine Polacrilex (Nicotine Polacrilex 2 Mg Gum) 4 mg BUCCAL Q2H PRN PRN Reason: Nicotine Cravings Olanzapine (Olanzapine 5 Mg Tablet) 5 mg PO TID PRN PRN Reason: agitation Last Admin: 03/22/23 08:31 Dose: 5 mg Omeprazole (Omeprazole 20 Mg Capsule.) 20 mg PO DAILY@0630 [facility] Last Admin: 03/22/23 06:10 Dose: 20 mg Thiamine HCl (Thiamine Hcl 100 Mg Tablet) 100 mg PO DAILY [facility] Last Admin: 03/22/23 08:32 Dose: 100 mg Trazodone HCl (Trazodone Hcl 50 Mg Tablet) 50 mg PO BEDTIME MRX1 PRN PRN Reason: Insomnia Last Admin: 03/20/23 21:09 Dose: 50 mg Allergies Allergies Allergy/AdvReac Type Severity Reaction Status Date / Time Sulfa (Sulfonamide Allergy Severe THROAT Verified 03/15/23 18:22 Antibiotics) SWELLING,RASH [Sulfa (Sulfonamides)] sulfamethoxazole Allergy Severe THROAT Verified 03/15/23 18:22 [From Bactrim] SWELLING,RASH trimethoprim [From Bactrim] Allergy Severe THROAT Verified 03/15/23 18:22 SWELLING,RASH morphine [MORPHINE] Allergy Unknown ANAPHYLAXIS Verified 03/15/23 18:22 Assessment & Plan Assessment & Plan (1) Schizoaffective disorder, bipolar type: Status: Acute Code(s): F25.0 - Schizoaffective disorder, bipolar type Plan 52 yo female, hx of schizoaffective disorder, bipolar type, PTSD. 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 Plan: Re-establish regime Collateral contact, treatment team, mom, Humaira Otero [phone] Diagnostics as needed Encourage milieu involvement. 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 Adjustments moving forward. 03/19/23 Continue regime and plan. Pt reporting some improvement in her mood today. 03/21/23 Patient disorganized, labile; visitor came and patient's for at him and would not be with him. Earlier patient open the freezer and stuck her head in it, standing there and needed to be redirected. Senior Application Programmer approach patient while sitting on a chair, curled up in crying. She says I miss my children at 22 and 23.... I lost me to take care of my children... I am not ready for 53, for my birthday... She then said something about a cubby hole... Senior Application Programmer tries to inquire to understand better but patient remains tearful and says she just needs to cry some more but will get better on her own. -continue current regimen for now; adjustments have been made and may need time to work 03/22/23 remains disorganized in speech and behavior -increased clozapine to 125 mg Reason for continued inpatient stay Substantial Risk for: inability to function Time Spent With Patient Time: Total time managing care of this patient today ____ minutes.
[2023-03-22] MEDS: Nicotine 21 MG PATCH.TD24 TRANSDERMA (14:18)
[2023-03-22] MEDS: hydrOXYzine HCL 25 MG TABLET PO ×2 (14:19→22:51)
[2023-03-22] MEDS: Milk of Magnesia 30 ML ORAL.SUSP PO (14:19)
[2023-03-22 18:00] VITALS: BP 121/83; PULSE 111; RESP 20; TEMP 36.3; O2SAT 98
[2023-03-22] MEDS: cloZAPine 25 MG TABLET 125 MG PO (20:13)
[2023-03-23] MEDS: Omeprazole 20 MG CAPSULE.DR PO (06:19)
[2023-03-23 08:37] VITALS: BP 111/77; PULSE 101; RESP 16; TEMP 36.6; O2SAT 95
[2023-03-23] MEDS: metFORMIN HCl 1,000 MG TABLET 1000 MG PO (08:53)
[2023-03-23] MEDS: Magnesium Oxide 400 MG TABLET PO (08:53)
[2023-03-23] MEDS: Atorvastatin Calcium 40 MG TABLET PO (08:53)
[2023-03-23] MEDS: Ferrous Sulfate 324 MG TABLET.DR PO (08:53)
[2023-03-23] MEDS: Thiamine HCL 100 MG TABLET PO (08:53)
[2023-03-23] MEDS: Folic Acid 1 MG TABLET PO (08:53)
[2023-03-23] MEDS: Empagliflozin 10 MG TABLET PO (08:53)
--- NOTE | 2023-03-23 09:38 | HO.PSYCHPN ---
Subjective Subjective Date of Service: 03/23/23 Reason For Visit: Dysregulated Subjective Notes: Conditional Voluntary Healthcare Proxy: No Guardianship: No Medical Problems Affecting Mental Status: No Interim History: Remains disorganized, responding to internal stimuli, quaker preoccupation at times, tangential. More visable and social in milieu. Difficult to keep a train of logical conversation with. States she feels, OK and I am trying sometimes, but sometimes I just want to have fun, you know? Medication Compliance: Yes Side effects from medications: No Attending Groups: No Review of Systems Acute medical concerns: No Mental Status Exam Mental Status Exam Patient Appearance: Fatigued and Disheveled Patient Orientation: Person and Place ( heaven, hell, limbo??? ) Level of Consciousness: Alert Patient Behavior: Talkative, Suspicious, Restless, Wandering and Good Eye Contact Mood Description: Labile Affect Description: Labile Patient Cognition Impaired: Yes Ability to Follow Directions: Fair Speech Pattern: Spontaneous Speech and Rambling Memory Description: Remote Impaired Hallucinations: Auditory Delusions: Paranoid Ideation Perceptual Disturbances: Derealization Thought Process: Racing, Illogical and Distracted Thought Content: positive for Circumstantial, positive for Loose Associations, positive for Tangential and positive for Disorganized Depressive Symptoms: Unhappiness and Thoughts of /Suicide (denies, I am good here ) Abnormal Motor Activity Signs and Symptoms: Restlessness Judgement: Poor Diagnostics Vital Signs (24Hr): Vital Signs - 24 hr 03/22/23 18:00 Temperature 97.4 F Pulse Rate 111 H Respiratory Rate 20 Blood Pressure 121/83 Pulse Oximetry 98 Oxygen Delivery Method Room Air BMI result Body Mass Index 26.6 Labs 03/15/23 17:16 03/22/23 08:30 Labs: Laboratory Results - last 48 hr 03/22/23 03/22/23 07:20 08:30 Absolute Neuts (auto) 3.7 Creatinine 0.89 Estim Creat Clear Calc 75.5 Estimated GFR > 60 Imaging Radiology Impressions: ITS Impressions Head CT 03/15/23 15:32 IMPRESSION: No acute intracranial abnormalities. Medications Medications Current Medications Acetaminophen (Acetaminophen 325 Mg Tablet) 650 mg PO Q6H PRN PRN Reason: Headache/Pain Mild Scale (1-3) Last Admin: 03/21/23 19:32 Dose: 650 mg Al Hydroxide/Mg Hydroxide (Magnesium Hydrox/Alum Hydrox 30 Ml Oral.Susp) 30 ml PO Q6H PRN PRN Reason: Heartburn/Nausea Albuterol Sulfate (Albuterol Sulfate 90 Mcg 8 Gm Inhaler) 2 puff INHALE Q6H PRN PRN Reason: Wheezing Atorvastatin Calcium (Atorvastatin Calcium 40 Mg Tablet) 40 mg PO DAILY [facility] Last Admin: 03/23/23 08:53 Dose: 40 mg Clozapine (Clozapine 25 Mg Tablet) 125 mg PO BEDTIME [facility] Last Admin: 03/22/23 20:13 Dose: 125 mg Empagliflozin (Empagliflozin 10 Mg Tablet) 10 mg PO DAILY [facility] Last Admin: 03/23/23 08:53 Dose: 10 mg Ferrous Sulfate (Ferrous Sulfate 324 Mg Tablet.) 324 mg PO DAILY [facility] Last Admin: 03/23/23 08:53 Dose: 324 mg Folic Acid (Folic Acid 1 Mg Tablet) 1 mg PO DAILY [facility] Last Admin: 03/23/23 08:53 Dose: 1 mg Hydroxyzine HCl (Hydroxyzine Hcl 25 Mg Tablet) 25 mg PO Q6H PRN PRN Reason: Anxiety Last Admin: 03/22/23 22:51 Dose: 25 mg Lorazepam (Lorazepam 1 Mg Tablet) 1 mg PO TID PRN PRN Reason: Anxiety Last Admin: 03/22/23 17:56 Dose: 1 mg Magnesium Hydroxide (Milk Of Magnesia 30 Ml Oral.Susp) 30 ml PO DAILY PRN PRN Reason: Constipation Last Admin: 03/22/23 14:19 Dose: 30 ml Magnesium Oxide (Magnesium Oxide 400 Mg Tablet) 400 mg PO DAILY [facility] Last Admin: 03/23/23 08:53 Dose: 400 mg Metformin HCl (Metformin Hcl 1,000 Mg Tablet) 1,000 mg PO DAILY [facility] Last Admin: 03/23/23 08:53 Dose: 1,000 mg Nicotine (Nicotine 21 Mg Patch.Td24) 21 mg TRANSDERMA DAILY PRN PRN Reason: smoking cessation Last Admin: 03/22/23 14:18 Dose: 21 mg Nicotine Polacrilex (Nicotine Polacrilex 2 Mg Gum) 4 mg BUCCAL Q2H PRN PRN Reason: Nicotine Cravings Olanzapine (Olanzapine 5 Mg Tablet) 5 mg PO TID PRN PRN Reason: agitation Last Admin: 03/22/23 14:19 Dose: 5 mg Omeprazole (Omeprazole 20 Mg Capsule.) 20 mg PO DAILY@0630 [facility] Last Admin: 03/23/23 06:19 Dose: 20 mg Thiamine HCl (Thiamine Hcl 100 Mg Tablet) 100 mg PO DAILY [facility] Last Admin: 03/23/23 08:53 Dose: 100 mg Trazodone HCl (Trazodone Hcl 50 Mg Tablet) 50 mg PO BEDTIME MRX1 PRN PRN Reason: Insomnia Last Admin: 03/20/23 21:09 Dose: 50 mg Allergies Allergies Allergy/AdvReac Type Severity Reaction Status Date / Time Sulfa (Sulfonamide Allergy Severe THROAT Verified 03/15/23 18:22 Antibiotics) SWELLING,RASH [Sulfa (Sulfonamides)] sulfamethoxazole Allergy Severe THROAT Verified 03/15/23 18:22 [From Bactrim] SWELLING,RASH trimethoprim [From Bactrim] Allergy Severe THROAT Verified 03/15/23 18:22 SWELLING,RASH morphine [MORPHINE] Allergy Unknown ANAPHYLAXIS Verified 03/15/23 18:22 Assessment & Plan Assessment & Plan (1) Schizoaffective disorder, bipolar type: Status: Acute Code(s): F25.0 - Schizoaffective disorder, bipolar type Plan 52 yo female, hx of schizoaffective disorder, bipolar type, PTSD. 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 Plan: Re-establish regime Collateral contact, treatment team, mom, Humaira Otero [phone] Diagnostics as needed Encourage milieu involvement. 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 Adjustments moving forward. 03/19/23 Continue regime and plan. Pt reporting some improvement in her mood today. 03/21/23 Patient disorganized, labile; visitor came and patient's for at him and would not be with him. Earlier patient open the freezer and stuck her head in it, standing there and needed to be redirected. Platemaker approach patient while sitting on a chair, curled up in crying. She says I miss my children at 22 and 23.... I lost me to take care of my children... I am not ready for 53, for my birthday... She then said something about a cubby hole... Platemaker tries to inquire to understand better but patient remains tearful and says she just needs to cry some more but will get better on her own. -continue current regimen for now; adjustments have been made and may need time to work 03/22/23 remains disorganized in speech and behavior -increased clozapine to 125 mg 03/23/23 Depakote ER 500 mg hs Informed Consent: does not understand Reason for continued inpatient stay Substantial Risk for: rapid decompensation Time Spent With Patient Time: Total time managing care of this patient today ____ minutes.
[2023-03-23] MEDS: LORazepam 1 MG TABLET PO ×2 (11:11→17:26)
[2023-03-23] MEDS: Nicotine 21 MG PATCH.TD24 TRANSDERMA (12:18)
[2023-03-23] MEDS: hydrOXYzine HCL 25 MG TABLET PO (14:54)
[2023-03-23] MEDS: Milk of Magnesia 30 ML ORAL.SUSP PO (14:54)
[2023-03-23] MEDS: Acetaminophen 325 MG TABLET 650 MG PO (17:26)
[2023-03-23 18:00] VITALS: BP 139/92; PULSE 97; RESP 16; TEMP 36.8; O2SAT 97
[2023-03-23] MEDS: cloZAPine 25 MG TABLET 125 MG PO (21:47)
[2023-03-23] MEDS: Divalproex Sodium ER 500 MG TAB.ER.24H PO (21:48)
[2023-03-24] MEDS: Omeprazole 20 MG CAPSULE.DR PO (06:12)
[2023-03-24 07:59] VITALS: BP 128/78; PULSE 90; RESP 16; TEMP 36.5; O2SAT 98
[2023-03-24] MEDS: Folic Acid 1 MG TABLET PO (08:22)
[2023-03-24] MEDS: Magnesium Oxide 400 MG TABLET PO (08:22)
[2023-03-24] MEDS: Thiamine HCL 100 MG TABLET PO (08:22)
[2023-03-24] MEDS: Empagliflozin 10 MG TABLET PO (08:22)
[2023-03-24] MEDS: Atorvastatin Calcium 40 MG TABLET PO (08:22)
[2023-03-24] MEDS: metFORMIN HCl 1,000 MG TABLET 1000 MG PO (08:23)
[2023-03-24] MEDS: Ferrous Sulfate 324 MG TABLET.DR PO (08:23)
[2023-03-24] MEDS: Acetaminophen 325 MG TABLET 650 MG PO (09:08)
[2023-03-24] MEDS: hydrOXYzine HCL 25 MG TABLET PO (13:05)
[2023-03-24] MEDS: LORazepam 1 MG TABLET PO (13:05)
[2023-03-24] MEDS: Milk of Magnesia 30 ML ORAL.SUSP PO (13:06)
--- NOTE | 2023-03-24 16:06 | HO.PSYCHPN ---
Subjective Subjective Date of Service: 03/24/23 Reason For Visit: Dysregulated Subjective Notes: Conditional Voluntary Healthcare Proxy: No Guardianship: No Medical Problems Affecting Mental Status: No Interim History: Continues with acute psychosis and without response to medication interventions at this time. We are informed this is her pattern of recovery. Message left with [facility] to discuss medication interventions. Difficult to converse with as there is a great deal of tangential content, distraction, and thought blocking at times. Brief, frequent interactions maintained with pt initiating these as she feels comfortable. Review of Systems Review of Systems Yes Unobtainable due to mental status Mental Status Exam Mental Status Exam Patient Appearance: Fatigued, Disheveled and Unkempt Patient Orientation: Person Level of Consciousness: Alert Patient Behavior: Guarded, Talkative, Cooperative, Suspicious, Restless, Wandering, Avoidant, Fatigued, Distractible, Confused and Good Eye Contact Mood Description: Labile Affect Description: Labile Patient Cognition Impaired: Yes Ability to Follow Directions: Poor Speech Pattern: Spontaneous Speech, Rambling, Soft-Spoken, Mumbled, Cofabulation and Pressured (at times) Memory Description: Remote Impaired, Immediate Impaired and Episodic Impaired Hallucinations: Auditory Delusions: Paranoid Ideation and Present Perceptual Disturbances: Depersonalization, Derealization and Hallucinations Thought Process: Disoriented, Racing, Illogical, Distracted and Confusion Thought Content: positive for Flight of Ideas, positive for Racing, positive for Circumstantial, positive for Perseveration, positive for Poverty of Content, positive for Preoccupation, positive for Loose Associations, positive for Thought Blocking, positive for Tangential, positive for Disorganized and positive for Suicidal Ideation (denies) Depressive Symptoms: Diff. Making Decisions, Unhappiness, Thoughts of /Suicide (denies) and Difficulty Concentrating Abnormal Motor Activity Signs and Symptoms: Restlessness Judgement: Poor Diagnostics Vital Signs (24Hr): Vital Signs - 24 hr 03/23/23 18:00 03/24/23 07:59 Temperature 98.2 F 97.7 F Pulse Rate 97 90 Respiratory Rate 16 16 Blood Pressure 139/92 H 128/78 Pulse Oximetry 97 98 Oxygen Delivery Method Room Air Room Air BMI result Body Mass Index 26.6 Labs 03/15/23 17:16 03/22/23 08:30 Imaging Radiology Impressions: ITS Impressions Head CT 03/15/23 15:32 IMPRESSION: No acute intracranial abnormalities. Medications Medications Current Medications Acetaminophen (Acetaminophen 325 Mg Tablet) 650 mg PO Q6H PRN PRN Reason: Headache/Pain Mild Scale (1-3) Last Admin: 03/24/23 09:08 Dose: 650 mg Al Hydroxide/Mg Hydroxide (Magnesium Hydrox/Alum Hydrox 30 Ml Oral.Susp) 30 ml PO Q6H PRN PRN Reason: Heartburn/Nausea Albuterol Sulfate (Albuterol Sulfate 90 Mcg 8 Gm Inhaler) 2 puff INHALE Q6H PRN PRN Reason: Wheezing Atorvastatin Calcium (Atorvastatin Calcium 40 Mg Tablet) 40 mg PO DAILY [facility] Last Admin: 03/24/23 08:22 Dose: 40 mg Clozapine (Clozapine 25 Mg Tablet) 150 mg PO BEDTIME [facility] Divalproex Sodium (Divalproex Sodium Er 500 Mg Tab.Er.24h) 500 mg PO BEDTIME [facility] Last Admin: 03/23/23 21:48 Dose: 500 mg Empagliflozin (Empagliflozin 10 Mg Tablet) 10 mg PO DAILY [facility] Last Admin: 03/24/23 08:22 Dose: 10 mg Ferrous Sulfate (Ferrous Sulfate 324 Mg Tablet.Dr) 324 mg PO DAILY [facility] Last Admin: 03/24/23 08:23 Dose: 324 mg Folic Acid (Folic Acid 1 Mg Tablet) 1 mg PO DAILY [facility] Last Admin: 03/24/23 08:22 Dose: 1 mg Hydroxyzine HCl (Hydroxyzine Hcl 25 Mg Tablet) 25 mg PO Q6H PRN PRN Reason: Anxiety Last Admin: 03/24/23 13:05 Dose: 25 mg Lorazepam (Lorazepam 1 Mg Tablet) 1 mg PO TID PRN PRN Reason: Anxiety Last Admin: 03/24/23 13:05 Dose: 1 mg Magnesium Hydroxide (Milk Of Magnesia 30 Ml Oral.Susp) 30 ml PO DAILY PRN PRN Reason: Constipation Last Admin: 03/24/23 13:06 Dose: 30 ml Magnesium Oxide (Magnesium Oxide 400 Mg Tablet) 400 mg PO DAILY [facility] Last Admin: 03/24/23 08:22 Dose: 400 mg Metformin HCl (Metformin Hcl 1,000 Mg Tablet) 1,000 mg PO DAILY [facility] Last Admin: 03/24/23 08:23 Dose: 1,000 mg Nicotine (Nicotine 21 Mg Patch.Td24) 21 mg TRANSDERMA DAILY PRN PRN Reason: smoking cessation Last Admin: 03/23/23 12:18 Dose: 21 mg Nicotine Polacrilex (Nicotine Polacrilex 2 Mg Gum) 4 mg BUCCAL Q2H PRN PRN Reason: Nicotine Cravings Olanzapine (Olanzapine 5 Mg Tablet) 5 mg PO TID PRN PRN Reason: agitation Last Admin: 03/22/23 14:19 Dose: 5 mg Omeprazole (Omeprazole 20 Mg Capsule.Dr) 20 mg PO DAILY@0630 [facility] Last Admin: 03/24/23 06:12 Dose: 20 mg Thiamine HCl (Thiamine Hcl 100 Mg Tablet) 100 mg PO DAILY [facility] Last Admin: 03/24/23 08:22 Dose: 100 mg Trazodone HCl (Trazodone Hcl 50 Mg Tablet) 50 mg PO BEDTIME MRX1 PRN PRN Reason: Insomnia Last Admin: 03/20/23 21:09 Dose: 50 mg Allergies Allergies Allergy/AdvReac Type Severity Reaction Status Date / Time Sulfa (Sulfonamide Allergy Severe THROAT Verified 03/15/23 18:22 Antibiotics) SWELLING,RASH [Sulfa (Sulfonamides)] sulfamethoxazole Allergy Severe THROAT Verified 03/15/23 18:22 [From Bactrim] SWELLING,RASH trimethoprim [From Bactrim] Allergy Severe THROAT Verified 03/15/23 18:22 SWELLING,RASH morphine [MORPHINE] Allergy Unknown ANAPHYLAXIS Verified 03/15/23 18:22 Assessment & Plan Assessment & Plan (1) Schizoaffective disorder, bipolar type: Status: Acute Code(s): F25.0 - Schizoaffective disorder, bipolar type Plan 52 yo female, hx of schizoaffective disorder, bipolar type, PTSD. 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 Plan: Re-establish regime Collateral contact, treatment team, mom, Humaira Otero [phone] Diagnostics as needed Encourage milieu involvement. 03/19/23 Continue regime, team reports noncompliance FIRE CONTROL TECHNICIAN ~4-6 days. Adjustments moving forward. 03/19/23 Continue regime and plan. Pt reporting some improvement in her mood today. 03/21/23 Patient disorganized, labile; visitor came and patient's for at him and would not be with him. Earlier patient open the freezer and stuck her head in it, standing there and needed to be redirected. Strategy Analyst approach patient while sitting on a chair, curled up in crying. She says I miss my children at 21 and 23.... I lost me to take care of my children... I am not ready for 53, for my birthday... She then said something about a cubby hole... Strategy Analyst tries to inquire to understand better but patient remains tearful and says she just needs to cry some more but will get better on her own. -continue current regimen for now; adjustments have been made and may need time to work 03/22/23 remains disorganized in speech and behavior -increased clozapine to 125 mg 03/23/23 Depakote ER 500 mg hs 03/24/23 Continue current regime Informed Consent: does not understand Reason for continued inpatient stay Substantial Risk for: inability to function and rapid decompensation Time Spent With Patient Time: Total time managing care of this patient today ____ minutes.
[2023-03-24 18:00] VITALS: BP 120/58; PULSE 109; RESP 16
[2023-03-24] MEDS: cloZAPine 25 MG TABLET 150 MG PO (19:59)
[2023-03-24] MEDS: Divalproex Sodium ER 500 MG TAB.ER.24H PO (19:59)
[2023-03-25] MEDS: Omeprazole 20 MG CAPSULE.DR PO (06:23)
[2023-03-25 08:29] VITALS: BP 124/68; PULSE 102; RESP 16; TEMP 36.9; O2SAT 97
[2023-03-25] MEDS: Magnesium Oxide 400 MG TABLET PO (08:33)
[2023-03-25] MEDS: Empagliflozin 10 MG TABLET PO (08:33)
[2023-03-25] MEDS: metFORMIN HCl 1,000 MG TABLET 1000 MG PO (08:33)
[2023-03-25] MEDS: Atorvastatin Calcium 40 MG TABLET PO (08:33)
[2023-03-25] MEDS: Ferrous Sulfate 324 MG TABLET.DR PO (08:33)
[2023-03-25] MEDS: Folic Acid 1 MG TABLET PO (08:33)
[2023-03-25] MEDS: Thiamine HCL 100 MG TABLET PO (08:33)
[2023-03-25] MEDS: Acetaminophen 325 MG TABLET 650 MG PO (11:37)
[2023-03-25] MEDS: LORazepam 1 MG TABLET PO (11:37)
[2023-03-25] MEDS: Nicotine 21 MG PATCH.TD24 TRANSDERMA (11:37)
--- NOTE | 2023-03-25 16:49 | HO.PSYCHPN ---
Subjective Subjective Date of Service: 03/25/23 Reason For Visit: Dysregulated Subjective Notes: Conditional Voluntary Healthcare Proxy: No Guardianship: No Medical Problems Affecting Mental Status: No Interim History: Pt remains disorganized, psychotic. She presents bizarre behaviors and inappropriate responses to questions and situations. Discussion with her OP MD, Dr. Owens who reports they have been very concerned as her decompensations are long and severe. She is very slow to recover and it takes a long while for her to get on track. Clozapine has been as high as 300 mg, however, she stopped at 300 mg when she gained weight-200 mg should be a goal currently. She has done poorly with other atypicals and has had always had compliance issues. Medication Compliance: Yes Side effects from medications: No Attending Groups: No Review of Systems Acute medical concerns: No Medical Review of Systems: unchanged Review of Systems Review of Systems Yes Unobtainable due to mental status Mental Status Exam Mental Status Exam Patient Appearance: Fatigued, Disheveled and Unkempt Patient Orientation: Person Level of Consciousness: Alert Patient Behavior: Guarded, Talkative, Cooperative, Suspicious, Restless, Wandering, Avoidant, Fatigued, Distractible, Confused and Good Eye Contact Mood Description: Labile Affect Description: Labile Patient Cognition Impaired: Yes Ability to Follow Directions: Poor Speech Pattern: Spontaneous Speech, Rambling, Soft-Spoken, Mumbled, Cofabulation and Pressured (at times) Memory Description: Remote Impaired, Immediate Impaired and Episodic Impaired Hallucinations: Auditory Delusions: Paranoid Ideation and Present Perceptual Disturbances: Depersonalization, Derealization and Hallucinations Thought Process: Disoriented, Racing, Illogical, Distracted and Confusion Thought Content: positive for Flight of Ideas, positive for Racing, positive for Circumstantial, positive for Perseveration, positive for Poverty of Content, positive for Preoccupation, positive for Loose Associations, positive for Thought Blocking, positive for Tangential, positive for Disorganized and positive for Suicidal Ideation (denies) Depressive Symptoms: Diff. Making Decisions, Unhappiness, Thoughts of /Suicide (denies) and Difficulty Concentrating Abnormal Motor Activity Signs and Symptoms: Restlessness Judgement: Poor Diagnostics Vital Signs (24Hr): Vital Signs - 24 hr 03/24/23 18:00 03/25/23 08:29 Temperature 98.4 F Pulse Rate 109 H 102 H Respiratory Rate 16 16 Blood Pressure 120/58 L 124/68 Pulse Oximetry 97 Oxygen Delivery Method Room Air BMI result Body Mass Index 26.6 Labs 03/15/23 17:16 03/22/23 08:30 Imaging Radiology Impressions: [facility] Impressions Head CT 03/15/23 15:32 IMPRESSION: No acute intracranial abnormalities. Medications Medications Current Medications Acetaminophen (Acetaminophen 325 Mg Tablet) 650 mg PO Q6H PRN PRN Reason: Headache/Pain Mild Scale (1-3) Last Admin: 03/25/23 11:37 Dose: 650 mg Al Hydroxide/Mg Hydroxide (Magnesium Hydrox/Alum Hydrox 30 Ml Oral.Susp) 30 ml PO Q6H PRN PRN Reason: Heartburn/Nausea Albuterol Sulfate (Albuterol Sulfate 90 Mcg 8 Gm Inhaler) 2 puff INHALE Q6H PRN PRN Reason: Wheezing Atorvastatin Calcium (Atorvastatin Calcium 40 Mg Tablet) 40 mg PO DAILY [facility] Last Admin: 03/25/23 08:33 Dose: 40 mg Clozapine (Clozapine 25 Mg Tablet) 175 mg PO BEDTIME [facility] Divalproex Sodium (Divalproex Sodium Er 500 Mg Tab.Er.24h) 500 mg PO BEDTIME [facility] Last Admin: 03/24/23 19:59 Dose: 500 mg Empagliflozin (Empagliflozin 10 Mg Tablet) 10 mg PO DAILY [facility] Last Admin: 03/25/23 08:33 Dose: 10 mg Ferrous Sulfate (Ferrous Sulfate 324 Mg Tablet.Dr) 324 mg PO DAILY [facility] Last Admin: 03/25/23 08:33 Dose: 324 mg Folic Acid (Folic Acid 1 Mg Tablet) 1 mg PO DAILY [facility] Last Admin: 03/25/23 08:33 Dose: 1 mg Hydroxyzine HCl (Hydroxyzine Hcl 25 Mg Tablet) 25 mg PO Q6H PRN PRN Reason: Anxiety Last Admin: 03/24/23 13:05 Dose: 25 mg Lorazepam (Lorazepam 1 Mg Tablet) 1 mg PO TID PRN PRN Reason: Anxiety Last Admin: 03/25/23 11:37 Dose: 1 mg Magnesium Hydroxide (Milk Of Magnesia 30 Ml Oral.Susp) 30 ml PO DAILY PRN PRN Reason: Constipation Last Admin: 03/24/23 13:06 Dose: 30 ml Magnesium Oxide (Magnesium Oxide 400 Mg Tablet) 400 mg PO DAILY [facility] Last Admin: 03/25/23 08:33 Dose: 400 mg Metformin HCl (Metformin Hcl 1,000 Mg Tablet) 1,000 mg PO DAILY [facility] Last Admin: 03/25/23 08:33 Dose: 1,000 mg Nicotine (Nicotine 21 Mg Patch.Td24) 21 mg TRANSDERMA DAILY PRN PRN Reason: smoking cessation Last Admin: 03/25/23 11:37 Dose: 21 mg Nicotine Polacrilex (Nicotine Polacrilex 2 Mg Gum) 4 mg BUCCAL Q2H PRN PRN Reason: Nicotine Cravings Olanzapine (Olanzapine 5 Mg Tablet) 5 mg PO TID PRN PRN Reason: agitation Last Admin: 03/22/23 14:19 Dose: 5 mg Omeprazole (Omeprazole 20 Mg Capsule.Dr) 20 mg PO DAILY@0630 [facility] Last Admin: 03/25/23 06:23 Dose: 20 mg Thiamine HCl (Thiamine Hcl 100 Mg Tablet) 100 mg PO DAILY [facility] Last Admin: 03/25/23 08:33 Dose: 100 mg Trazodone HCl (Trazodone Hcl 50 Mg Tablet) 50 mg PO BEDTIME MRX1 PRN PRN Reason: Insomnia Last Admin: 03/20/23 21:09 Dose: 50 mg Allergies Allergies Allergy/AdvReac Type Severity Reaction Status Date / Time Sulfa (Sulfonamide Allergy Severe THROAT Verified 03/15/23 18:22 Antibiotics) SWELLING,RASH [Sulfa (Sulfonamides)] sulfamethoxazole Allergy Severe THROAT Verified 03/15/23 18:22 [From Bactrim] SWELLING,RASH trimethoprim [From Bactrim] Allergy Severe THROAT Verified 03/15/23 18:22 SWELLING,RASH morphine [MORPHINE] Allergy Unknown ANAPHYLAXIS Verified 03/15/23 18:22 Assessment & Plan Assessment & Plan (1) Schizoaffective disorder, bipolar type: Status: Acute Code(s): F25.0 - Schizoaffective disorder, bipolar type Plan 52 yo female, hx of schizoaffective disorder, bipolar type, PTSD. 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 Plan: Re-establish regime Collateral contact, treatment team, mom, Humaira Otero [phone] Diagnostics as needed Encourage milieu involvement. 03/19/23 Continue regime, team reports noncompliance MANAGER OF ENGINEERING ~4-6 days. Adjustments moving forward. 03/19/23 Continue regime and plan. Pt reporting some improvement in her mood today. 03/21/23 Patient disorganized, labile; visitor came and patient's for at him and would not be with him. Earlier patient open the freezer and stuck her head in it, standing there and needed to be redirected. Forestry Contractor approach patient while sitting on a chair, curled up in crying. She says I miss my children at 22 and 23.... I lost me to take care of my children... I am not ready for 53, for my birthday... She then said something about a cubby hole... Forestry Contractor tries to inquire to understand better but patient remains tearful and says she just needs to cry some more but will get better on her own. -continue current regimen for now; adjustments have been made and may need time to work 03/22/23 remains disorganized in speech and behavior -increased clozapine to 125 mg 03/23/23 Depakote ER 500 mg hs 03/24/23 Continue current regime 03/25/23 Increase Clozapine to 175 mg HS Informed Consent: does not understand Reason for continued inpatient stay Substantial Risk for: rapid decompensation Time Spent With Patient Time: Total time managing care of this patient today ____ minutes.
[2023-03-25 18:00] VITALS: BP 124/75; PULSE 107; RESP 16; TEMP 36.4; O2SAT 96
[2023-03-25] MEDS: cloZAPine 25 MG TABLET 175 MG PO (20:47)
[2023-03-25] MEDS: Divalproex Sodium ER 500 MG TAB.ER.24H PO (20:48)
[2023-03-26 06:00] VITALS: BP 136/67; PULSE 88; RESP 18; TEMP 36.4; O2SAT 96
[2023-03-26] MEDS: Omeprazole 20 MG CAPSULE.DR PO (06:03)
[2023-03-26] MEDS: Thiamine HCL 100 MG TABLET PO (09:13)
[2023-03-26] MEDS: Magnesium Oxide 400 MG TABLET PO (09:13)
[2023-03-26] MEDS: Ferrous Sulfate 324 MG TABLET.DR PO (09:13)
[2023-03-26] MEDS: Folic Acid 1 MG TABLET PO (09:13)
[2023-03-26] MEDS: metFORMIN HCl 1,000 MG TABLET 1000 MG PO (09:13)
[2023-03-26] MEDS: Empagliflozin 10 MG TABLET PO (09:13)
[2023-03-26] MEDS: Atorvastatin Calcium 40 MG TABLET PO (09:13)
[2023-03-26] MEDS: hydrOXYzine HCL 25 MG TABLET PO ×2 (09:29→13:48)
--- NOTE | 2023-03-26 12:55 | HO.PSYCHPN ---
Subjective Subjective Date of Service: 03/26/23 Reason For Visit: Dysregulated Interim History: Met with patient; discussed with team Patient remains disorganized, fearful, with bizarre behaviors. On approach patient had towel overhead and was filling a plastic food bowl on her bed with various items from her room. Patient started backing away from marine underwriter and said are you going to hurt me? You are a jase... You are a doctor.. But then said that is okay and started to come closer. Patient had a strong her mouth and was talking nonsense. Later in the milieu, the patient standing in the corner talking to herself. She reports good sleep; patient taking medication Mental Status Exam Mental Status Exam Patient Appearance: Fatigued, Disheveled and Unkempt Patient Orientation: Person Level of Consciousness: Alert Patient Behavior: Guarded, Talkative, Cooperative, Suspicious, Restless, Wandering, Avoidant, Fatigued, Distractible, Confused and Good Eye Contact Mood Description: Labile Affect Description: Labile Patient Cognition Impaired: Yes Ability to Follow Directions: Poor Speech Pattern: Spontaneous Speech, Rambling, Soft-Spoken, Mumbled, Cofabulation and Pressured (at times) Memory Description: Remote Impaired, Immediate Impaired and Episodic Impaired Hallucinations: Auditory Delusions: Paranoid Ideation and Present Perceptual Disturbances: Depersonalization, Derealization and Hallucinations Thought Process: Disoriented, Racing, Illogical, Distracted and Confusion Thought Content: positive for Flight of Ideas, positive for Racing, positive for Circumstantial, positive for Perseveration, positive for Poverty of Content, positive for Preoccupation, positive for Loose Associations, positive for Thought Blocking, positive for Tangential, positive for Disorganized and positive for Suicidal Ideation (denies) Depressive Symptoms: Diff. Making Decisions, Unhappiness, Thoughts of /Suicide (denies) and Difficulty Concentrating Abnormal Motor Activity Signs and Symptoms: Restlessness Judgement: Poor Diagnostics Vital Signs (24Hr): Vital Signs - 24 hr 03/25/23 18:00 Temperature 97.6 F Pulse Rate 107 H Respiratory Rate 16 Blood Pressure 124/75 Pulse Oximetry 96 Oxygen Delivery Method Room Air BMI result Body Mass Index 26.6 Labs 03/15/23 17:16 03/22/23 08:30 Imaging Radiology Impressions: [facility] Impressions Head CT 03/15/23 15:32 IMPRESSION: No acute intracranial abnormalities. Medications Medications Current Medications Acetaminophen (Acetaminophen 325 Mg Tablet) 650 mg PO Q6H PRN PRN Reason: Headache/Pain Mild Scale (1-3) Last Admin: 03/25/23 11:37 Dose: 650 mg Al Hydroxide/Mg Hydroxide (Magnesium Hydrox/Alum Hydrox 30 Ml Oral.Susp) 30 ml PO Q6H PRN PRN Reason: Heartburn/Nausea Albuterol Sulfate (Albuterol Sulfate 90 Mcg 8 Gm Inhaler) 2 puff INHALE Q6H PRN PRN Reason: Wheezing Atorvastatin Calcium (Atorvastatin Calcium 40 Mg Tablet) 40 mg PO DAILY [facility] Last Admin: 03/26/23 09:13 Dose: 40 mg Clozapine (Clozapine 25 Mg Tablet) 175 mg PO BEDTIME [facility] Last Admin: 03/25/23 20:47 Dose: 175 mg Divalproex Sodium (Divalproex Sodium Er 500 Mg Tab.Er.24h) 500 mg PO BEDTIME [facility] Last Admin: 03/25/23 20:48 Dose: 500 mg Empagliflozin (Empagliflozin 10 Mg Tablet) 10 mg PO DAILY [facility] Last Admin: 03/26/23 09:13 Dose: 10 mg Ferrous Sulfate (Ferrous Sulfate 324 Mg Tablet.Dr) 324 mg PO DAILY [facility] Last Admin: 03/26/23 09:13 Dose: 324 mg Folic Acid (Folic Acid 1 Mg Tablet) 1 mg PO DAILY [facility] Last Admin: 03/26/23 09:13 Dose: 1 mg Hydroxyzine HCl (Hydroxyzine Hcl 25 Mg Tablet) 25 mg PO Q6H PRN PRN Reason: Anxiety Last Admin: 03/26/23 09:29 Dose: 25 mg Magnesium Hydroxide (Milk Of Magnesia 30 Ml Oral.Susp) 30 ml PO DAILY PRN PRN Reason: Constipation Last Admin: 03/24/23 13:06 Dose: 30 ml Magnesium Oxide (Magnesium Oxide 400 Mg Tablet) 400 mg PO DAILY [facility] Last Admin: 03/26/23 09:13 Dose: 400 mg Metformin HCl (Metformin Hcl 1,000 Mg Tablet) 1,000 mg PO DAILY [facility] Last Admin: 03/26/23 09:13 Dose: 1,000 mg Nicotine (Nicotine 21 Mg Patch.Td24) 21 mg TRANSDERMA DAILY PRN PRN Reason: smoking cessation Last Admin: 03/25/23 11:37 Dose: 21 mg Nicotine Polacrilex (Nicotine Polacrilex 2 Mg Gum) 4 mg BUCCAL Q2H PRN PRN Reason: Nicotine Cravings Olanzapine (Olanzapine 5 Mg Tablet) 5 mg PO TID PRN PRN Reason: agitation Last Admin: 03/22/23 14:19 Dose: 5 mg Omeprazole (Omeprazole 20 Mg Capsule.Dr) 20 mg PO DAILY@0630 [facility] Last Admin: 03/26/23 06:03 Dose: 20 mg Thiamine HCl (Thiamine Hcl 100 Mg Tablet) 100 mg PO DAILY [facility] Last Admin: 03/26/23 09:13 Dose: 100 mg Trazodone HCl (Trazodone Hcl 50 Mg Tablet) 50 mg PO BEDTIME MRX1 PRN PRN Reason: Insomnia Last Admin: 03/20/23 21:09 Dose: 50 mg Allergies Allergies Allergy/AdvReac Type Severity Reaction Status Date / Time Sulfa (Sulfonamide Allergy Severe THROAT Verified 03/15/23 18:22 Antibiotics) SWELLING,RASH [Sulfa (Sulfonamides)] sulfamethoxazole Allergy Severe THROAT Verified 03/15/23 18:22 [From Bactrim] SWELLING,RASH trimethoprim [From Bactrim] Allergy Severe THROAT Verified 03/15/23 18:22 SWELLING,RASH morphine [MORPHINE] Allergy Unknown ANAPHYLAXIS Verified 03/15/23 18:22 Assessment & Plan Assessment & Plan (1) Schizoaffective disorder, bipolar type: Status: Acute Code(s): F25.0 - Schizoaffective disorder, bipolar type Plan 52 yo female, hx of schizoaffective disorder, bipolar type, PTSD. 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 Plan: Re-establish regime Collateral contact, treatment team, mom, Humaira Otero [phone] Diagnostics as needed Encourage milieu involvement. 03/19/23 Continue regime, team reports noncompliance GLUE CLAMP OPERATOR ~4-6 days. Adjustments moving forward. 03/19/23 Continue regime and plan. Pt reporting some improvement in her mood today. 03/21/23 Patient disorganized, labile; visitor came and patient's for at him and would not be with him. Earlier patient open the freezer and stuck her head in it, standing there and needed to be redirected. Metal Fabricating Inspector approach patient while sitting on a chair, curled up in crying. She says I miss my children at 22 and 23.... I lost me to take care of my children... I am not ready for 53, for my birthday... She then said something about a cubby hole... Metal Fabricating Inspector tries to inquire to understand better but patient remains tearful and says she just needs to cry some more but will get better on her own. -continue current regimen for now; adjustments have been made and may need time to work 03/22/23 remains disorganized in speech and behavior -increased clozapine to 125 mg 03/23/23 Depakote ER 500 mg hs 03/24/23 Continue current regime 03/25/23 Increase Clozapine to 175 mg HS 03/26/23 Patient remains disorganized, fearful, with bizarre behaviors. Clozapine recently increased so will continue current treatment regimen Patient educated on: diagnosis Informed Consent: does not understand Reason for continued inpatient stay Substantial Risk for: inability to function Time Spent With Patient Time: Total time managing care of this patient today ____ minutes.
[2023-03-26] MEDS: Nicotine 21 MG PATCH.TD24 TRANSDERMA (13:48)
[2023-03-26] MEDS: OLANZapine 5 MG TABLET PO ×2 (13:48→21:47)
[2023-03-26] MEDS: Milk of Magnesia 30 ML ORAL.SUSP PO (13:48)
[2023-03-26] MEDS: cloZAPine 25 MG TABLET 175 MG PO (21:47)
[2023-03-26] MEDS: Divalproex Sodium ER 500 MG TAB.ER.24H PO (21:47)
[2023-03-26 22:00] VITALS: BP 157/71; PULSE 102; TEMP 36.1; O2SAT 97
--- NOTE | 2023-03-27 04:00 | PC.NURSE ---
PT HAD A VERBAL ALTERCATION WITH ROOMMATE DUE TO TURNING ON ALL LIGHTS IN THE BEDROOM, LOUDLY SINGING AND DANCING AT 0015. WHEN STAFF ENTERED ROOM, PT STATED THIS SLEEPY HEAD DOESNT WANT TO DANCE WITH ME AND LAUGHED. PT REFUSED TO STOP SINGING/DANCING IN ROOM WHILE ROOMMATE WAS TRYING TO SLEEP. PT WAS OFFERED AN ALTERNATIVE SPACE TO DANCE AWAY FROM ROOMMATE WHICH SHE ACCEPTED.
[2023-03-27] MEDS: Omeprazole 20 MG CAPSULE.DR PO (06:33)
[2023-03-27] MEDS: metFORMIN HCl 1,000 MG TABLET 1000 MG PO (08:14)
[2023-03-27] MEDS: Ferrous Sulfate 324 MG TABLET.DR PO (08:14)
[2023-03-27] MEDS: Empagliflozin 10 MG TABLET PO (08:14)
[2023-03-27] MEDS: Atorvastatin Calcium 40 MG TABLET PO (08:14)
[2023-03-27] MEDS: Thiamine HCL 100 MG TABLET PO (08:14)
[2023-03-27] MEDS: Magnesium Oxide 400 MG TABLET PO (08:14)
[2023-03-27] MEDS: Folic Acid 1 MG TABLET PO (08:14)
[2023-03-27 08:15] VITALS: PULSE 110; RESP 18; TEMP 36.3; O2SAT 97
[2023-03-27] MEDS: Nicotine 21 MG PATCH.TD24 TRANSDERMA (08:50)
[2023-03-27 16:35] VITALS: BP 120/84; PULSE 122; RESP 16; TEMP 36.5; O2SAT 97
--- NOTE | 2023-03-27 16:52 | HO.PSYCHPN ---
Subjective Subjective Date of Service: 03/27/23 Reason For Visit: Dysregulated Subjective Notes: Conditional Voluntary Healthcare Proxy: No Guardianship: No Medical Problems Affecting Mental Status: No Interim History: Continues with lability full range, disorganization, however she presents with less overall distress and appears calmer and more comfortable than in previous days. More visable in milieu Minimal conversation opportunity-pt is distracted, offering blessings, laughs, some phrases that don't make sense to the presenting topic, i.e. how are you feeling----I hope Jorge is coming. Medication Compliance: Yes Side effects from medications: No Attending Groups: No (social groups attended) Review of Systems Acute medical concerns: No Medical Review of Systems: unchanged Review of Systems Review of Systems Yes Unobtainable due to mental status Mental Status Exam Mental Status Exam Patient Appearance: Fatigued, Disheveled and Unkempt Patient Orientation: Person Level of Consciousness: Alert Patient Behavior: Guarded, Talkative, Cooperative, Suspicious, Restless, Wandering, Avoidant, Fatigued, Distractible, Confused and Good Eye Contact Mood Description: Labile Affect Description: Labile Patient Cognition Impaired: Yes Ability to Follow Directions: Poor Speech Pattern: Spontaneous Speech, Rambling, Soft-Spoken, Mumbled, Cofabulation and Pressured (at times) Memory Description: Remote Impaired, Immediate Impaired and Episodic Impaired Hallucinations: Auditory Delusions: Paranoid Ideation and Present Perceptual Disturbances: Depersonalization, Derealization and Hallucinations Thought Process: Disoriented, Racing, Illogical, Distracted and Confusion Thought Content: positive for Flight of Ideas, positive for Racing, positive for Circumstantial, positive for Perseveration, positive for Poverty of Content, positive for Preoccupation, positive for Loose Associations, positive for Thought Blocking, positive for Tangential, positive for Disorganized and positive for Suicidal Ideation (denies) Depressive Symptoms: Diff. Making Decisions, Unhappiness, Thoughts of /Suicide (denies) and Difficulty Concentrating Abnormal Motor Activity Signs and Symptoms: Restlessness Judgement: Poor Diagnostics Vital Signs (24Hr): Vital Signs - 24 hr 03/26/23 22:00 03/27/23 08:15 03/27/23 16:35 Temperature 96.9 F 97.4 F 97.7 F Pulse Rate 102 H 110 H 122 H Respiratory Rate 18 16 Blood Pressure 157/71 H 120/84 Pulse Oximetry 97 97 97 Oxygen Delivery Method Room Air Room Air BMI result Body Mass Index 26.6 Labs 03/15/23 17:16 03/22/23 08:30 Imaging Radiology Impressions: ITS Impressions Head CT 03/15/23 15:32 IMPRESSION: No acute intracranial abnormalities. Medications Medications Current Medications Acetaminophen (Acetaminophen 325 Mg Tablet) 650 mg PO Q6H PRN PRN Reason: Headache/Pain Mild Scale (1-3) Last Admin: 03/25/23 11:37 Dose: 650 mg Al Hydroxide/Mg Hydroxide (Magnesium Hydrox/Alum Hydrox 30 Ml Oral.Susp) 30 ml PO Q6H PRN PRN Reason: Heartburn/Nausea Albuterol Sulfate (Albuterol Sulfate 90 Mcg 8 Gm Inhaler) 2 puff INHALE Q6H PRN PRN Reason: Wheezing Atorvastatin Calcium (Atorvastatin Calcium 40 Mg Tablet) 40 mg PO DAILY [facility] Last Admin: 03/27/23 08:14 Dose: 40 mg Clozapine (Clozapine 25 Mg Tablet) 175 mg PO BEDTIME [facility] Last Admin: 03/26/23 21:47 Dose: 175 mg Divalproex Sodium (Divalproex Sodium Er 500 Mg Tab.Er.24h) 500 mg PO BEDTIME [facility] Last Admin: 03/26/23 21:47 Dose: 500 mg Empagliflozin (Empagliflozin 10 Mg Tablet) 10 mg PO DAILY [facility] Last Admin: 03/27/23 08:14 Dose: 10 mg Ferrous Sulfate (Ferrous Sulfate 324 Mg Tablet.Dr) 324 mg PO DAILY [facility] Last Admin: 03/27/23 08:14 Dose: 324 mg Folic Acid (Folic Acid 1 Mg Tablet) 1 mg PO DAILY [facility] Last Admin: 03/27/23 08:14 Dose: 1 mg Hydroxyzine HCl (Hydroxyzine Hcl 25 Mg Tablet) 25 mg PO Q6H PRN PRN Reason: Anxiety Last Admin: 03/26/23 13:48 Dose: 25 mg Magnesium Hydroxide (Milk Of Magnesia 30 Ml Oral.Susp) 30 ml PO DAILY PRN PRN Reason: Constipation Last Admin: 03/26/23 13:48 Dose: 30 ml Magnesium Oxide (Magnesium Oxide 400 Mg Tablet) 400 mg PO DAILY [facility] Last Admin: 03/27/23 08:14 Dose: 400 mg Metformin HCl (Metformin Hcl 1,000 Mg Tablet) 1,000 mg PO DAILY [facility] Last Admin: 03/27/23 08:14 Dose: 1,000 mg Nicotine (Nicotine 21 Mg Patch.Td24) 21 mg TRANSDERMA DAILY PRN PRN Reason: smoking cessation Last Admin: 03/27/23 08:50 Dose: 21 mg Nicotine Polacrilex (Nicotine Polacrilex 2 Mg Gum) 4 mg BUCCAL Q2H PRN PRN Reason: Nicotine Cravings Olanzapine (Olanzapine 5 Mg Tablet) 5 mg PO TID PRN PRN Reason: agitation Last Admin: 03/26/23 21:47 Dose: 5 mg Omeprazole (Omeprazole 20 Mg Capsule.Dr) 20 mg PO DAILY@0630 [facility] Last Admin: 03/27/23 06:33 Dose: 20 mg Thiamine HCl (Thiamine Hcl 100 Mg Tablet) 100 mg PO DAILY [facility] Last Admin: 03/27/23 08:14 Dose: 100 mg Trazodone HCl (Trazodone Hcl 50 Mg Tablet) 50 mg PO BEDTIME MRX1 PRN PRN Reason: Insomnia Last Admin: 03/20/23 21:09 Dose: 50 mg Allergies Allergies Allergy/AdvReac Type Severity Reaction Status Date / Time Sulfa (Sulfonamide Allergy Severe THROAT Verified 03/15/23 18:22 Antibiotics) SWELLING,RASH [Sulfa (Sulfonamides)] sulfamethoxazole Allergy Severe THROAT Verified 03/15/23 18:22 [From Bactrim] SWELLING,RASH trimethoprim [From Bactrim] Allergy Severe THROAT Verified 03/15/23 18:22 SWELLING,RASH morphine [MORPHINE] Allergy Unknown ANAPHYLAXIS Verified 03/15/23 18:22 Assessment & Plan Assessment & Plan (1) Schizoaffective disorder, bipolar type: Status: Acute Code(s): F25.0 - Schizoaffective disorder, bipolar type Plan 52 yo female, hx of schizoaffective disorder, bipolar type, PTSD. 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 Plan: Re-establish regime Collateral contact, treatment team, mom, Humaira Otero [phone] Diagnostics as needed Encourage milieu involvement. 03/19/23 Continue regime, team reports noncompliance WORKFORCE DEVELOPMENT PROGRAM DIRECTOR ~4-6 days. Adjustments moving forward. 03/19/23 Continue regime and plan. Pt reporting some improvement in her mood today. 03/21/23 Patient disorganized, labile; visitor came and patient's for at him and would not be with him. Earlier patient open the freezer and stuck her head in it, standing there and needed to be redirected. Genetic Counsellor approach patient while sitting on a chair, curled up in crying. She says I miss my children at 21 and 22.... I lost me to take care of my children... I am not ready for 53, for my birthday... She then said something about a cubby hole... Genetic Counsellor tries to inquire to understand better but patient remains tearful and says she just needs to cry some more but will get better on her own. -continue current regimen for now; adjustments have been made and may need time to work 03/22/23 remains disorganized in speech and behavior -increased clozapine to 125 mg 03/23/23 Depakote ER 500 mg hs 03/24/23 Continue current regime 03/25/23 Increase Clozapine to 175 mg HS 03/26/23 Patient remains disorganized, fearful, with bizarre behaviors. Clozapine recently increased so will continue current treatment regimen 03/27/23 Increase Clozapine to 200 mg HS and hold-by history this dose has been effective per OP team. Informed Consent: does not understand Reason for continued inpatient stay Substantial Risk for: rapid decompensation Time Spent With Patient Time: Total time managing care of this patient today ____ minutes.
[2023-03-27] MEDS: hydrOXYzine HCL 25 MG TABLET PO (17:49)
[2023-03-27] MEDS: OLANZapine 5 MG TABLET PO ×2 (17:49→23:16)
[2023-03-27] MEDS: traZODone HCL 50 MG TABLET PO ×2 (19:59→23:16)
[2023-03-27] MEDS: cloZAPine 25 MG TABLET 175 MG PO (19:59)
[2023-03-27] MEDS: Divalproex Sodium ER 500 MG TAB.ER.24H PO (19:59)
[2023-03-27] MEDS: Acetaminophen 325 MG TABLET 650 MG PO (20:05)
[2023-03-28] MEDS: Omeprazole 20 MG CAPSULE.DR PO (07:05)
[2023-03-28] MEDS: Magnesium Oxide 400 MG TABLET PO (08:48)
[2023-03-28] MEDS: Folic Acid 1 MG TABLET PO (08:48)
[2023-03-28] MEDS: Thiamine HCL 100 MG TABLET PO (08:48)
[2023-03-28] MEDS: metFORMIN HCl 1,000 MG TABLET 1000 MG PO (08:48)
[2023-03-28] MEDS: Atorvastatin Calcium 40 MG TABLET PO (08:48)
[2023-03-28] MEDS: Empagliflozin 10 MG TABLET PO (08:48)
[2023-03-28] MEDS: Ferrous Sulfate 324 MG TABLET.DR PO (08:48)
[2023-03-28] MEDS: hydrOXYzine HCL 25 MG TABLET PO ×2 (08:51→16:50)
[2023-03-28] MEDS: Nicotine 21 MG PATCH.TD24 TRANSDERMA (08:51)
[2023-03-28 09:01] VITALS: PULSE 103; RESP 16; TEMP 36.3; O2SAT 96
--- NOTE | 2023-03-28 16:42 | P.PNPSI_ITS ---
Subjective Subjective Date of Service: 03/28/23 Reason For Visit: psychosis Healthcare Proxy: No Guardianship: No Medical Problems Affecting Mental Status: No Interim History: Met with patient. Discussed with Nursing. Delusional. Paranoid. Irritable. Lots of self talk. Noted patient today room was very disorganized, trash all over the place, putting on the sheets. Talking to herself. Rambling, also singing. Has been adherent with medications. No evidence of SI. Medication Compliance: Yes Side effects from medications: No Attending Groups: No Review of Systems Acute medical concerns: No Review of Systems Review of Systems Yes Unobtainable due to mental status Mental Status Exam Mental Status Exam Narrative: In room. Disheveled. Room in disarray. Disorganized. Talking to self and rambling. Internally preoccupied. No evidence of SI or HI. Insight and judgment poor Diagnostics Vital Signs (24Hr): Vital Signs - 24 hr 03/28/23 09:01 Temperature 97.3 F Pulse Rate 103 H Respiratory Rate 16 Pulse Oximetry 96 Oxygen Delivery Method Room Air BMI result Body Mass Index 26.6 Labs 03/15/23 17:16 03/22/23 08:30 Imaging Radiology Impressions: ITS Impressions Head CT 03/15/23 15:32 IMPRESSION: No acute intracranial abnormalities. Medications Medications Current Medications Acetaminophen (Acetaminophen 325 Mg Tablet) 650 mg PO Q6H PRN PRN Reason: Headache/Pain Mild Scale (1-3) Last Admin: 03/27/23 20:05 Dose: 650 mg Al Hydroxide/Mg Hydroxide (Magnesium Hydrox/Alum Hydrox 30 Ml Oral.Susp) 30 ml PO Q6H PRN PRN Reason: Heartburn/Nausea Albuterol Sulfate (Albuterol Sulfate 90 Mcg 8 Gm Inhaler) 2 puff INHALE Q6H PRN PRN Reason: Wheezing Atorvastatin Calcium (Atorvastatin Calcium 40 Mg Tablet) 40 mg PO DAILY [facility] Last Admin: 03/28/23 08:48 Dose: 40 mg Clozapine (Clozapine 100 Mg Tablet) 200 mg PO BEDTIME [facility] Divalproex Sodium (Divalproex Sodium Er 500 Mg Tab.Er.24h) 500 mg PO BEDTIME [facility] Last Admin: 03/27/23 19:59 Dose: 500 mg Empagliflozin (Empagliflozin 10 Mg Tablet) 10 mg PO DAILY [facility] Last Admin: 03/28/23 08:48 Dose: 10 mg Ferrous Sulfate (Ferrous Sulfate 324 Mg Tablet.) 324 mg PO DAILY [facility] Last Admin: 03/28/23 08:48 Dose: 324 mg Folic Acid (Folic Acid 1 Mg Tablet) 1 mg PO DAILY [facility] Last Admin: 03/28/23 08:48 Dose: 1 mg Hydroxyzine HCl (Hydroxyzine Hcl 25 Mg Tablet) 25 mg PO Q6H PRN PRN Reason: Anxiety Last Admin: 03/28/23 08:51 Dose: 25 mg Magnesium Hydroxide (Milk Of Magnesia 30 Ml Oral.Susp) 30 ml PO DAILY PRN PRN Reason: Constipation Last Admin: 03/26/23 13:48 Dose: 30 ml Magnesium Oxide (Magnesium Oxide 400 Mg Tablet) 400 mg PO DAILY [facility] Last Admin: 03/28/23 08:48 Dose: 400 mg Metformin HCl (Metformin Hcl 1,000 Mg Tablet) 1,000 mg PO DAILY [facility] Last Admin: 03/28/23 08:48 Dose: 1,000 mg Nicotine (Nicotine 21 Mg Patch.Td24) 21 mg TRANSDERMA DAILY PRN PRN Reason: smoking cessation Last Admin: 03/28/23 08:51 Dose: 21 mg Nicotine Polacrilex (Nicotine Polacrilex 2 Mg Gum) 4 mg BUCCAL Q2H PRN PRN Reason: Nicotine Cravings Olanzapine (Olanzapine 5 Mg Tablet) 5 mg PO TID PRN PRN Reason: agitation Last Admin: 03/27/23 23:16 Dose: 5 mg Omeprazole (Omeprazole 20 Mg Capsule.) 20 mg PO DAILY@0630 [facility] Last Admin: 03/28/23 07:05 Dose: 20 mg Thiamine HCl (Thiamine Hcl 100 Mg Tablet) 100 mg PO DAILY [facility] Last Admin: 03/28/23 08:48 Dose: 100 mg Trazodone HCl (Trazodone Hcl 50 Mg Tablet) 50 mg PO BEDTIME MRX1 PRN PRN Reason: Insomnia Last Admin: 03/27/23 23:16 Dose: 50 mg Allergies Allergies Allergy/AdvReac Type Severity Reaction Status Date / Time Sulfa (Sulfonamide Allergy Severe THROAT Verified 03/15/23 18:22 Antibiotics) SWELLING,RASH [Sulfa (Sulfonamides)] sulfamethoxazole Allergy Severe THROAT Verified 03/15/23 18:22 [From Bactrim] SWELLING,RASH trimethoprim [From Bactrim] Allergy Severe THROAT Verified 03/15/23 18:22 SWELLING,RASH morphine [MORPHINE] Allergy Unknown ANAPHYLAXIS Verified 03/15/23 18:22 Assessment & Plan Assessment & Plan (1) Schizoaffective disorder, bipolar type: Status: Acute Code(s): F25.0 - Schizoaffective disorder, bipolar type Plan 52 yo female, hx of schizoaffective disorder, bipolar type, PTSD. 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 Plan: Re-establish regime Collateral contact, treatment team, mom, Humaira Otero [phone] Diagnostics as needed Encourage milieu involvement. 03/19/23 Continue regime, team reports noncompliance SUPERINTENDENT SYSTEM OPERATION ~4-6 days. Adjustments moving forward. 03/19/23 Continue regime and plan. Pt reporting some improvement in her mood today. 03/21/23 Patient disorganized, labile; visitor came and patient's for at him and would not be with him. Earlier patient open the freezer and stuck her head in it, standing there and needed to be redirected. Cinder Worker approach patient while sitting on a chair, curled up in crying. She says I miss my children at 22 and 23.... I lost me to take care of my children... I am not ready for 53, for my birthday... She then said something about a cubby hole... Cinder Worker tries to inquire to understand better but patient remains tearful and says she just needs to cry some more but will get better on her own. -continue current regimen for now; adjustments have been made and may need time to work 03/22/23 remains disorganized in speech and behavior -increased clozapine to 125 mg 03/23/23 Depakote ER 500 mg hs 03/24/23 Continue current regime 03/25/23 Increase Clozapine to 175 mg HS 03/26/23 Patient remains disorganized, fearful, with bizarre behaviors. Clozapine recently increased so will continue current treatment regimen 03/27/23 Increase Clozapine to 200 mg HS and hold-by history this dose has been effective per OP team. 03/28/2023: Will increase clozapine from 175 mg to 200 mg tonight. Reason for continued inpatient stay Substantial Risk for: inability to function Time Spent With Patient Time: Total time managing care of this patient today ____ minutes.
[2023-03-28] MEDS: OLANZapine 5 MG TABLET PO (16:50)
[2023-03-28 18:00] VITALS: PULSE 101; RESP 20; TEMP 36.8; O2SAT 95
[2023-03-28] MEDS: cloZAPine 100 MG TABLET 200 MG PO (20:28)
[2023-03-28] MEDS: Divalproex Sodium ER 500 MG TAB.ER.24H PO (20:28)
[2023-03-29] MEDS: Omeprazole 20 MG CAPSULE.DR PO (06:43)
[2023-03-29] MEDS: OLANZapine 5 MG TABLET PO (10:38)
[2023-03-29] MEDS: Atorvastatin Calcium 40 MG TABLET PO (10:39)
[2023-03-29] MEDS: Magnesium Oxide 400 MG TABLET PO (10:40)
[2023-03-29] MEDS: metFORMIN HCl 1,000 MG TABLET 1000 MG PO (10:40)
[2023-03-29] MEDS: Empagliflozin 10 MG TABLET PO (10:43)
[2023-03-29] MEDS: Ferrous Sulfate 324 MG TABLET.DR PO ×2 (10:43→10:45)
[2023-03-29] MEDS: Thiamine HCL 100 MG TABLET PO (10:44)
[2023-03-29] MEDS: Folic Acid 1 MG TABLET PO (10:45)
--- NOTE | 2023-03-29 14:42 | P.PNPSI_ITS ---
Subjective Subjective Date of Service: 03/29/23 (Seen at approx 1130am) Reason For Visit: psychosis Interim History: Met with patient. Discussed with Nursing. Has been disrobing at times. Delusional. Paranoid. Irritable. Lots of self talk. In hallway with something covering her head. Making little sense. Did ask for water in a pitcher. Has been adherent with medications. No evidence of SI. Medication Compliance: Yes Side effects from medications: No Attending Groups: No Review of Systems Acute medical concerns: No Review of Systems Review of Systems Yes Unobtainable due to mental status Mental Status Exam Mental Status Exam Narrative: In hallway. Disheveled. Room remains in disarray. Disorganized. Talking to self and rambling. Internally preoccupied. No evidence of SI or HI. Insight and judgment poor Diagnostics Vital Signs (24Hr): Vital Signs - 24 hr 03/28/23 18:00 Temperature 98.2 F Pulse Rate 101 H Respiratory Rate 20 Pulse Oximetry 95 Oxygen Delivery Method Room Air BMI result Body Mass Index 26.6 Labs 03/15/23 17:16 03/22/23 08:30 Imaging Radiology Impressions: ITS Impressions Head CT 03/15/23 15:32 IMPRESSION: No acute intracranial abnormalities. Medications Medications Current Medications Acetaminophen (Acetaminophen 325 Mg Tablet) 650 mg PO Q6H PRN PRN Reason: Headache/Pain Mild Scale (1-3) Last Admin: 03/27/23 20:05 Dose: 650 mg Al Hydroxide/Mg Hydroxide (Magnesium Hydrox/Alum Hydrox 30 Ml Oral.Susp) 30 ml PO Q6H PRN PRN Reason: Heartburn/Nausea Albuterol Sulfate (Albuterol Sulfate 90 Mcg 8 Gm Inhaler) 2 puff INHALE Q6H PRN PRN Reason: Wheezing Atorvastatin Calcium (Atorvastatin Calcium 40 Mg Tablet) 40 mg PO DAILY [facility] Last Admin: 03/29/23 10:39 Dose: 40 mg Clozapine (Clozapine 100 Mg Tablet) 200 mg PO BEDTIME [facility] Last Admin: 03/28/23 20:28 Dose: 200 mg Divalproex Sodium (Divalproex Sodium Er 500 Mg Tab.Er.24h) 500 mg PO BEDTIME [facility] Last Admin: 03/28/23 20:28 Dose: 500 mg Empagliflozin (Empagliflozin 10 Mg Tablet) 10 mg PO DAILY [facility] Last Admin: 03/29/23 10:43 Dose: 10 mg Ferrous Sulfate (Ferrous Sulfate 324 Mg Tablet.) 324 mg PO DAILY [facility] Last Admin: 03/29/23 10:45 Dose: 324 mg Folic Acid (Folic Acid 1 Mg Tablet) 1 mg PO DAILY [facility] Last Admin: 03/29/23 10:45 Dose: 1 mg Haloperidol Lactate (Haloperidol Lactate 5 Mg/Ml Vial) 5 mg IM STAT [facility]A Stop: 03/29/23 14:41 Hydroxyzine HCl (Hydroxyzine Hcl 25 Mg Tablet) 25 mg PO Q6H PRN PRN Reason: Anxiety Last Admin: 03/28/23 16:50 Dose: 25 mg Lorazepam (Lorazepam 2 Mg/Ml Vial) 2 mg IM STAT [facility] Stop: 03/29/23 14:41 Magnesium Hydroxide (Milk Of Magnesia 30 Ml Oral.Susp) 30 ml PO DAILY PRN PRN Reason: Constipation Last Admin: 03/26/23 13:48 Dose: 30 ml Magnesium Oxide (Magnesium Oxide 400 Mg Tablet) 400 mg PO DAILY [facility] Last Admin: 03/29/23 10:40 Dose: 400 mg Metformin HCl (Metformin Hcl 1,000 Mg Tablet) 1,000 mg PO DAILY [facility] Last Admin: 03/29/23 10:40 Dose: 1,000 mg Nicotine (Nicotine 21 Mg Patch.Td24) 21 mg TRANSDERMA DAILY PRN PRN Reason: smoking cessation Last Admin: 03/28/23 08:51 Dose: 21 mg Nicotine Polacrilex (Nicotine Polacrilex 2 Mg Gum) 4 mg BUCCAL Q2H PRN PRN Reason: Nicotine Cravings Olanzapine (Olanzapine 5 Mg Tablet) 5 mg PO TID PRN PRN Reason: agitation Last Admin: 03/29/23 10:38 Dose: 5 mg Omeprazole (Omeprazole 20 Mg Capsule.) 20 mg PO DAILY@0630 [facility] Last Admin: 03/29/23 06:43 Dose: 20 mg Thiamine HCl (Thiamine Hcl 100 Mg Tablet) 100 mg PO DAILY [facility] Last Admin: 03/29/23 10:44 Dose: 100 mg Trazodone HCl (Trazodone Hcl 50 Mg Tablet) 50 mg PO BEDTIME MRX1 PRN PRN Reason: Insomnia Last Admin: 03/27/23 23:16 Dose: 50 mg Allergies Allergies Allergy/AdvReac Type Severity Reaction Status Date / Time Sulfa (Sulfonamide Allergy Severe THROAT Verified 03/15/23 18:22 Antibiotics) SWELLING,RASH [Sulfa (Sulfonamides)] sulfamethoxazole Allergy Severe THROAT Verified 03/15/23 18:22 [From Bactrim] SWELLING,RASH trimethoprim [From Bactrim] Allergy Severe THROAT Verified 03/15/23 18:22 SWELLING,RASH morphine [MORPHINE] Allergy Unknown ANAPHYLAXIS Verified 03/15/23 18:22 Assessment & Plan Assessment & Plan (1) Schizoaffective disorder, bipolar type: Status: Acute Code(s): F25.0 - Schizoaffective disorder, bipolar type Plan 52 yo female, hx of schizoaffective disorder, bipolar type, PTSD. 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 Plan: Re-establish regime Collateral contact, treatment team, mom, Humaira Otero [phone] Diagnostics as needed Encourage milieu involvement. 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 Adjustments moving forward. 03/19/23 Continue regime and plan. Pt reporting some improvement in her mood today. 03/21/23 Patient disorganized, labile; visitor came and patient's for at him and would not be with him. Earlier patient open the freezer and stuck her head in it, standing there and needed to be redirected. Room Attendant approach patient while sitting on a chair, curled up in crying. She says I miss my children at 21 and 23.... I lost me to take care of my children... I am not ready for 53, for my birthday... She then said something about a cubby hole... Room Attendant tries to inquire to understand better but patient remains tearful and says she just needs to cry some more but will get better on her own. -continue current regimen for now; adjustments have been made and may need time to work 03/22/23 remains disorganized in speech and behavior -increased clozapine to 125 mg 03/23/23 Depakote ER 500 mg hs 03/24/23 Continue current regime 03/25/23 Increase Clozapine to 175 mg HS 03/26/23 Patient remains disorganized, fearful, with bizarre behaviors. Clozapine recently increased so will continue current treatment regimen 03/27/23 Increase Clozapine to 200 mg HS and hold-by history this dose has been effective per OP team. 03/28/2023: Will increase clozapine from 175 mg to 200 mg tonight. 03/29: just increased Clozapine to 200mg 03/28 Reason for continued inpatient stay Substantial Risk for: harm to others and inability to function Time Spent With Patient Time: Total time managing care of this patient today ____ minutes.
[2023-03-29] MEDS: LORazepam 2 MG/ML VIAL IM (14:53)
[2023-03-29] MEDS: Haloperidol Lactate 5 MG/ML VIAL IM (14:53)
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
--- NOTE | 2023-03-29 16:05 | PM.EVENT ---
Event Note Date of Service: 03/29/23 Event Note: As per nursing, patient physically aggressive towards staff. Disorganized. Escalating and not responding to redirection or support. Refusing medications. Given danger to others and aggressive behavior, write not onsite. Placed order for IM Ativan 2 mg and Haldol 5 mg- received same at 1453, with staff support and physical hold. Time Spent With Patient Time: Total time managing care of this patient today ____ minutes.
[2023-03-29 18:00] VITALS: BP 105/52; PULSE 77; RESP 16; TEMP 36.5; O2SAT 94
[2023-03-29] MEDS: cloZAPine 100 MG TABLET 200 MG PO (20:04)
[2023-03-29] MEDS: traZODone HCL 50 MG TABLET PO (20:04)
[2023-03-29] MEDS: Divalproex Sodium ER 500 MG TAB.ER.24H PO (20:04)
[2023-03-30] MEDS: Omeprazole 20 MG CAPSULE.DR PO ×2 (06:25)
[2023-03-30 08:39] LABS: Neut%MD 59.4 %; Neutrophils Absolute Auto 3.8 x10*3/uL (2.0-8.3); WBCANC 6.4 X10*3/uL
[2023-03-30 08:52] LABS: Estimated Glomerular Filt Rate > 60
[2023-03-30] MEDS: Thiamine HCL 100 MG TABLET PO (09:33)
[2023-03-30] MEDS: Empagliflozin 10 MG TABLET PO (09:33)
[2023-03-30] MEDS: Folic Acid 1 MG TABLET PO (09:34)
[2023-03-30] MEDS: Ferrous Sulfate 324 MG TABLET.DR PO (09:34)
[2023-03-30] MEDS: metFORMIN HCl 1,000 MG TABLET 1000 MG PO (09:34)
[2023-03-30] MEDS: Atorvastatin Calcium 40 MG TABLET PO (09:34)
[2023-03-30] MEDS: Magnesium Oxide 400 MG TABLET PO (09:34)
[2023-03-30] MEDS: hydrOXYzine HCL 25 MG TABLET PO ×2 (09:34→19:58)
[2023-03-30] MEDS: OLANZapine 5 MG TABLET PO ×3 (09:34→19:59)
--- NOTE | 2023-03-30 09:55 | P.PNPSI_ITS ---
Subjective Subjective Date of Service: 03/30/23 Reason For Visit: psychosis Subjective Notes: Conditional Voluntary Interim History: Reviewed with . Patient presents disorganized, responding to internal stimuli. She reports having auditory and visual hallucinations but did not elaborate. Poor hygiene, disheveled. trash all over room. denies SI/HI. Patients insight and judgment are poor. medication compliant. Medication Compliance: Yes Side effects from medications: No Review of Systems Constitutional: Reports as per HPI Eyes: Reports as per HPI Reports as per HPI Cardiovascular: Reports as per HPI Respiratory: Reports as per HPI Gastrointestinal: Reports as per HPI Genitourinary: Reports as per HPI Musculoskeletal: Reports as per HPI Skin/Breast: Reports as per HPI Reports as per HPI Psychiatric: Reports as per HPI Endocrine: Reports as per HPI Hematologic/Lymphatic: Reports as per HPI Allergic/Immunologic: Reports as per HPI Mental Status Exam Mental Status Exam Narrative: Poor hygiene, disheveled. trash all over room. disorganized. self dialoguing. denies any SI/HI. Patients insight and judgment are poor. reports auditory and visual hallucinations but did not elaborate. Diagnostics Vital Signs (24Hr): Vital Signs - 24 hr 03/29/23 18:00 Temperature 97.7 F Pulse Rate 77 Respiratory Rate 16 Blood Pressure 105/52 L Pulse Oximetry 94 Oxygen Delivery Method Room Air BMI result Body Mass Index 26.6 Labs 03/15/23 17:16 03/30/23 08:14 Labs: Laboratory Results - last 48 hr 03/30/23 08:14 Absolute Neuts (auto) 3.8 Creatinine 0.84 Estim Creat Clear Calc 80.0 Estimated GFR > 60 Imaging Radiology Impressions: ITS Impressions Head CT 03/15/23 15:32 IMPRESSION: No acute intracranial abnormalities. Medications Medications Current Medications Acetaminophen (Acetaminophen 325 Mg Tablet) 650 mg PO Q6H PRN PRN Reason: Headache/Pain Mild Scale (1-3) Last Admin: 03/27/23 20:05 Dose: 650 mg Al Hydroxide/Mg Hydroxide (Magnesium Hydrox/Alum Hydrox 30 Ml Oral.Susp) 30 ml PO Q6H PRN PRN Reason: Heartburn/Nausea Albuterol Sulfate (Albuterol Sulfate 90 Mcg 8 Gm Inhaler) 2 puff INHALE Q6H PRN PRN Reason: Wheezing Atorvastatin Calcium (Atorvastatin Calcium 40 Mg Tablet) 40 mg PO DAILY [facility] Last Admin: 03/30/23 09:34 Dose: 40 mg Clozapine (Clozapine 100 Mg Tablet) 200 mg PO BEDTIME [facility] Last Admin: 03/29/23 20:04 Dose: 200 mg Divalproex Sodium (Divalproex Sodium Er 500 Mg Tab.Er.24h) 500 mg PO BEDTIME [facility] Last Admin: 03/29/23 20:04 Dose: 500 mg Empagliflozin (Empagliflozin 10 Mg Tablet) 10 mg PO DAILY [facility] Last Admin: 03/30/23 09:33 Dose: 10 mg Ferrous Sulfate (Ferrous Sulfate 324 Mg Tablet.) 324 mg PO DAILY [facility] Last Admin: 03/30/23 09:34 Dose: 324 mg Folic Acid (Folic Acid 1 Mg Tablet) 1 mg PO DAILY [facility] Last Admin: 03/30/23 09:34 Dose: 1 mg Hydroxyzine HCl (Hydroxyzine Hcl 25 Mg Tablet) 25 mg PO Q6H PRN PRN Reason: Anxiety Last Admin: 03/30/23 09:34 Dose: 25 mg Magnesium Hydroxide (Milk Of Magnesia 30 Ml Oral.Susp) 30 ml PO DAILY PRN PRN Reason: Constipation Last Admin: 03/26/23 13:48 Dose: 30 ml Magnesium Oxide (Magnesium Oxide 400 Mg Tablet) 400 mg PO DAILY [facility] Last Admin: 03/30/23 09:34 Dose: 400 mg Metformin HCl (Metformin Hcl 1,000 Mg Tablet) 1,000 mg PO DAILY [facility] Last Admin: 03/30/23 09:34 Dose: 1,000 mg Nicotine (Nicotine 21 Mg Patch.Td24) 21 mg TRANSDERMA DAILY PRN PRN Reason: smoking cessation Last Admin: 03/28/23 08:51 Dose: 21 mg Nicotine Polacrilex (Nicotine Polacrilex 2 Mg Gum) 4 mg BUCCAL Q2H PRN PRN Reason: Nicotine Cravings Olanzapine (Olanzapine 5 Mg Tablet) 5 mg PO TID PRN PRN Reason: agitation Last Admin: 03/30/23 09:34 Dose: 5 mg Omeprazole (Omeprazole 20 Mg Capsule.Dr) 20 mg PO DAILY@0630 [facility] Last Admin: 03/30/23 06:25 Dose: 20 mg Thiamine HCl (Thiamine Hcl 100 Mg Tablet) 100 mg PO DAILY [facility] Last Admin: 03/30/23 09:33 Dose: 100 mg Trazodone HCl (Trazodone Hcl 50 Mg Tablet) 50 mg PO BEDTIME MRX1 PRN PRN Reason: Insomnia Last Admin: 03/29/23 20:04 Dose: 50 mg Allergies Allergies Allergy/AdvReac Type Severity Reaction Status Date / Time Sulfa (Sulfonamide Allergy Severe THROAT Verified 03/15/23 18:22 Antibiotics) SWELLING,RASH [Sulfa (Sulfonamides)] sulfamethoxazole Allergy Severe THROAT Verified 03/15/23 18:22 [From Bactrim] SWELLING,RASH trimethoprim [From Bactrim] Allergy Severe THROAT Verified 03/15/23 18:22 SWELLING,RASH morphine [MORPHINE] Allergy Unknown ANAPHYLAXIS Verified 03/15/23 18:22 Assessment & Plan Assessment & Plan (1) Schizoaffective disorder, bipolar type: Status: Acute Code(s): F25.0 - Schizoaffective disorder, bipolar type Plan 52 yo female, hx of schizoaffective disorder, bipolar type, PTSD. Pt has stopped medications with decompensation [employer]. Plan: Re-establish regime Collateral contact, treatment team, mom, Humaira Otero [phone] Diagnostics as needed Encourage milieu involvement. 03/19/23 Continue regime, team reports noncompliance [employer] ~4-6 days. Adjustments moving forward. 03/19/23 Continue regime and plan. Pt reporting some improvement in her mood today. 03/21/23 Patient disorganized, labile; visitor came and patient's for at him and would not be with him. Earlier patient open the freezer and stuck her head in it, standing there and needed to be redirected. Pipe Connector approach patient while sitting on a chair, curled up in crying. She says I miss my children at 21 and 22.... I lost me to take care of my children... I am not ready for 53, for my birthday... She then said something about a cubby hole... Pipe Connector tries to inquire to understand better but patient remains tearful and says she just needs to cry some more but will get better on her own. -continue current regimen for now; adjustments have been made and may need time to work 03/22/23 remains disorganized in speech and behavior -increased clozapine to 125 mg 03/23/23 Depakote ER 500 mg hs 03/24/23 Continue current regime 03/25/23 Increase Clozapine to 175 mg HS 03/26/23 Patient remains disorganized, fearful, with bizarre behaviors. Clozapine recently increased so will continue current treatment regimen 03/27/23 Increase Clozapine to 200 mg HS and hold-by history this dose has been effective per OP team. 03/28/2023: Will increase clozapine from 175 mg to 200 mg tonight. 03/29: just increased Clozapine to 200mg 03/28 03/30: Patient presents disorganized, responding to internal stimuli. She reports having auditory and visual hallucinations but did not elaborate. Poor hygiene, disheveled. trash all over room. denies SI/HI. Patients insight and judgment are poor. medication compliant. continue current tx plan. Patient educated on: medication risk/benefits Informed Consent: further education needed Reason for continued inpatient stay Substantial Risk for: med/psych decompensation Time Spent With Patient Time: Total time managing care of this patient today _30___ minutes.
[2023-03-30] MEDS: LORazepam 1 MG TABLET PO ×2 (15:05→19:58)
[2023-03-30 18:45] VITALS: BP 133/78; PULSE 97; RESP 16; TEMP 36.1; O2SAT 95
[2023-03-30] MEDS: Divalproex Sodium ER 500 MG TAB.ER.24H PO (19:58)
[2023-03-30] MEDS: cloZAPine 100 MG TABLET 200 MG PO (19:58)
[2023-03-30] MEDS: Acetaminophen 325 MG TABLET 650 MG PO (20:57)
[2023-03-31 08:50] VITALS: BP 127/57; PULSE 97; RESP 20; TEMP 36.2; O2SAT 98
[2023-03-31] MEDS: OLANZapine 5 MG TABLET PO ×2 (09:00→18:08)
[2023-03-31] MEDS: LORazepam 1 MG TABLET PO ×2 (09:00→13:20)
[2023-03-31] MEDS: Omeprazole 20 MG CAPSULE.DR PO (09:02)
[2023-03-31] MEDS: Empagliflozin 10 MG TABLET PO (09:03)
[2023-03-31] MEDS: metFORMIN HCl 1,000 MG TABLET 1000 MG PO (09:03)
[2023-03-31] MEDS: Magnesium Oxide 400 MG TABLET PO (09:04)
[2023-03-31] MEDS: Ferrous Sulfate 324 MG TABLET.DR PO (09:04)
[2023-03-31] MEDS: Atorvastatin Calcium 40 MG TABLET PO (09:05)
[2023-03-31] MEDS: Folic Acid 1 MG TABLET PO (09:05)
[2023-03-31] MEDS: Thiamine HCL 100 MG TABLET PO (10:48)
[2023-03-31] MEDS: Acetaminophen 325 MG TABLET 650 MG PO (13:33)
--- NOTE | 2023-03-31 15:37 | HO.PSYCHPN ---
Subjective Subjective Date of Service: 03/31/23 Reason For Visit: psychosis Subjective Notes: Conditional Voluntary Healthcare Proxy: No Guardianship: No Medical Problems Affecting Mental Status: No Interim History: COVID positive today. Dysphoric, remains tangential, with disorganization yet improved. Communication is clearer-expression clearer. Able to discuss her sadness, low self esteem and how she feels she has been poorly treated in her life. Finds Ativan helpful. Medication Compliance: Yes Side effects from medications: No Attending Groups: No Review of Systems Acute medical concerns: No Medical Review of Systems: unchanged Review of Systems Review of Systems Yes Unobtainable due to mental status Mental Status Exam Mental Status Exam Patient Appearance: Fatigued, Disheveled and Unkempt Patient Orientation: Person and Place Level of Consciousness: Alert Patient Behavior: Talkative, Cooperative, Passive, Anxious, Fearful, Fatigued, Distractible, Good Eye Contact and Crying Mood Description: Depressed and Labile Affect Description: Flat Patient Cognition Impaired: No Ability to Follow Directions: Fair Speech Pattern: Perseverating, Spontaneous Speech, Rambling, Soft-Spoken, Rapid and Pressured Memory Description: Remote Impaired Hallucinations: None Delusions: Paranoid Ideation and Present Perceptual Disturbances: Depersonalization and Derealization Thought Process: Illogical, Distracted, Rumination and Confusion Thought Content: positive for [place], positive for Circumstantial, positive for Perseveration, positive for Poverty of Content, positive for Preoccupation and positive for Loose Associations Depressive Symptoms: Increased Anxiety, Diff. Making Decisions, Increased Irritability, Crying Spells, Feelings of Worthlessness, Hopelessness, Unhappiness, Increased Fatigue, Low Self Esteem, Loss of Energy and Difficulty Concentrating Judgement: Poor Diagnostics Vital Signs (24Hr): Vital Signs - 24 hr 03/30/23 18:45 03/31/23 08:50 Temperature 97.0 F 97.2 F Pulse Rate 97 97 Respiratory Rate 16 20 Blood Pressure 133/78 127/57 L Pulse Oximetry 95 98 Oxygen Delivery Method Room Air Room Air BMI result Body Mass Index 26.6 Labs 03/15/23 17:16 03/30/23 08:14 Labs: Laboratory Results - last 48 hr 03/30/23 08:14 Absolute Neuts (auto) 3.8 Creatinine 0.84 Estim Creat Clear Calc 80.0 Estimated GFR > 60 Imaging Radiology Impressions: ITS Impressions Head CT 03/15/23 15:32 IMPRESSION: No acute intracranial abnormalities. Medications Medications Current Medications Acetaminophen (Acetaminophen 325 Mg Tablet) 650 mg PO Q6H PRN PRN Reason: Headache/Pain Mild Scale (1-3) Last Admin: 03/31/23 13:33 Dose: 650 mg Al Hydroxide/Mg Hydroxide (Magnesium Hydrox/Alum Hydrox 30 Ml Oral.Susp) 30 ml PO Q6H PRN PRN Reason: Heartburn/Nausea Albuterol Sulfate (Albuterol Sulfate 90 Mcg 8 Gm Inhaler) 2 puff INHALE Q6H PRN PRN Reason: Wheezing Atorvastatin Calcium (Atorvastatin Calcium 40 Mg Tablet) 40 mg PO DAILY [facility] Last Admin: 03/31/23 09:05 Dose: 40 mg Clozapine (Clozapine 100 Mg Tablet) 200 mg PO BEDTIME [facility] Last Admin: 03/30/23 19:58 Dose: 200 mg Divalproex Sodium (Divalproex Sodium Er 500 Mg Tab.Er.24h) 500 mg PO BEDTIME [facility] Last Admin: 03/30/23 19:58 Dose: 500 mg Empagliflozin (Empagliflozin 10 Mg Tablet) 10 mg PO DAILY [facility] Last Admin: 03/31/23 09:03 Dose: 10 mg Ferrous Sulfate (Ferrous Sulfate 324 Mg Tablet.Dr) 324 mg PO DAILY [facility] Last Admin: 03/31/23 09:04 Dose: 324 mg Folic Acid (Folic Acid 1 Mg Tablet) 1 mg PO DAILY [facility] Last Admin: 03/31/23 09:05 Dose: 1 mg Haloperidol (Haloperidol 5 Mg Tablet) 5 mg PO BID [facility] Hydroxyzine HCl (Hydroxyzine Hcl 25 Mg Tablet) 25 mg PO Q6H PRN PRN Reason: Anxiety Last Admin: 03/30/23 19:58 Dose: 25 mg Lorazepam (Lorazepam 1 Mg Tablet) 1 mg PO TID PRN PRN Reason: Anxiety Last Admin: 03/31/23 13:20 Dose: 1 mg Magnesium Hydroxide (Milk Of Magnesia 30 Ml Oral.Susp) 30 ml PO DAILY PRN PRN Reason: Constipation Last Admin: 03/26/23 13:48 Dose: 30 ml Magnesium Oxide (Magnesium Oxide 400 Mg Tablet) 400 mg PO DAILY [facility] Last Admin: 03/31/23 09:04 Dose: 400 mg Metformin HCl (Metformin Hcl 1,000 Mg Tablet) 1,000 mg PO DAILY [facility] Last Admin: 03/31/23 09:03 Dose: 1,000 mg Nicotine (Nicotine 21 Mg Patch.Td24) 21 mg TRANSDERMA DAILY PRN PRN Reason: smoking cessation Last Admin: 03/28/23 08:51 Dose: 21 mg Nicotine Polacrilex (Nicotine Polacrilex 2 Mg Gum) 4 mg BUCCAL Q2H PRN PRN Reason: Nicotine Cravings Olanzapine (Olanzapine 5 Mg Tablet) 5 mg PO TID PRN PRN Reason: agitation Last Admin: 03/31/23 09:00 Dose: 5 mg Omeprazole (Omeprazole 20 Mg Capsule.Dr) 20 mg PO DAILY@0630 [facility] Last Admin: 03/31/23 09:02 Dose: 20 mg Thiamine HCl (Thiamine Hcl 100 Mg Tablet) 100 mg PO DAILY [facility] Last Admin: 03/31/23 10:48 Dose: 100 mg Trazodone HCl (Trazodone Hcl 50 Mg Tablet) 50 mg PO BEDTIME MRX1 PRN PRN Reason: Insomnia Last Admin: 03/29/23 20:04 Dose: 50 mg Allergies Allergies Allergy/AdvReac Type Severity Reaction Status Date / Time Sulfa (Sulfonamide Allergy Severe THROAT Verified 03/15/23 18:22 Antibiotics) SWELLING,RASH [Sulfa (Sulfonamides)] sulfamethoxazole Allergy Severe THROAT Verified 03/15/23 18:22 [From Bactrim] SWELLING,RASH trimethoprim [From Bactrim] Allergy Severe THROAT Verified 03/15/23 18:22 SWELLING,RASH morphine [MORPHINE] Allergy Unknown ANAPHYLAXIS Verified 03/15/23 18:22 Assessment & Plan Assessment & Plan (1) Schizoaffective disorder, bipolar type: Status: Acute Code(s): F25.0 - Schizoaffective disorder, bipolar type Plan 52 yo female, hx of schizoaffective disorder, bipolar type, PTSD. 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 Plan: Re-establish regime Collateral contact, treatment team, mom, Humaiar Otero [phone] Diagnostics as needed Encourage milieu involvement. 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 Adjustments moving forward. 03/19/23 Continue regime and plan. Pt reporting some improvement in her mood today. 03/21/23 Patient disorganized, labile; visitor came and patient's for at him and would not be with him. Earlier patient open the freezer and stuck her head in it, standing there and needed to be redirected. Mate Fourth approach patient while sitting on a chair, curled up in crying. She says I miss my children at 21 and 23.... I lost me to take care of my children... I am not ready for 53, for my birthday... She then said something about a cubby hole... Mate Fourth tries to inquire to understand better but patient remains tearful and says she just needs to cry some more but will get better on her own. -continue current regimen for now; adjustments have been made and may need time to work 03/22/23 remains disorganized in speech and behavior -increased clozapine to 125 mg 03/23/23 Depakote ER 500 mg hs 03/24/23 Continue current regime 03/25/23 Increase Clozapine to 175 mg HS 03/26/23 Patient remains disorganized, fearful, with bizarre behaviors. Clozapine recently increased so will continue current treatment regimen 03/27/23 Increase Clozapine to 200 mg HS and hold-by history this dose has been effective per OP team. 03/28/2023: Will increase clozapine from 175 mg to 200 mg tonight. 03/29: just increased Clozapine to 200mg 03/28 03/30: Patient presents disorganized, responding to internal stimuli. She reports having auditory and visual hallucinations but did not elaborate. Poor hygiene, disheveled. trash all over room. denies SI/HI. Patients insight and judgment are poor. medication compliant. continue current tx plan. 03/31/23 Dysphoric with some improvement in her communication. Finds Ativan helpful, continues with poor modulation and dysregulation. Haldol 5 mg bid Patient educated on: medication risk/benefits Informed Consent: further education needed Reason for continued inpatient stay Substantial Risk for: rapid decompensation Time Spent With Patient Time: Total time managing care of this patient today ____ minutes.
[2023-03-31 17:36] LABS: COVID-19 Test Positive (Negative); IDNOW Serial# 08D9AD1C
[2023-03-31] MEDS: hydrOXYzine HCL 25 MG TABLET PO (18:07)
[2023-03-31 18:45] VITALS: BP 128/62; PULSE 95; RESP 16; TEMP 36.8; O2SAT 96
[2023-03-31] MEDS: HaloperidoL 5 MG TABLET PO (20:43)
[2023-03-31] MEDS: cloZAPine 100 MG TABLET 200 MG PO (20:43)
[2023-03-31] MEDS: Divalproex Sodium ER 500 MG TAB.ER.24H PO (20:44)
[2023-04-01] MEDS: Folic Acid 1 MG TABLET PO (08:15)
[2023-04-01] MEDS: metFORMIN HCl 1,000 MG TABLET 1000 MG PO (08:15)
[2023-04-01] MEDS: Omeprazole 20 MG CAPSULE.DR PO (08:15)
[2023-04-01] MEDS: Ferrous Sulfate 324 MG TABLET.DR PO (08:15)
[2023-04-01] MEDS: Empagliflozin 10 MG TABLET PO (08:15)
[2023-04-01] MEDS: Magnesium Oxide 400 MG TABLET PO (08:15)
[2023-04-01] MEDS: OLANZapine 5 MG TABLET PO ×2 (08:15→16:22)
[2023-04-01] MEDS: LORazepam 1 MG TABLET PO ×2 (08:16→16:22)
[2023-04-01] MEDS: Atorvastatin Calcium 40 MG TABLET PO (08:16)
[2023-04-01] MEDS: Acetaminophen 325 MG TABLET 650 MG PO ×2 (08:16→16:33)
[2023-04-01] MEDS: HaloperidoL 5 MG TABLET PO ×2 (08:16→21:13)
[2023-04-01] MEDS: Thiamine HCL 100 MG TABLET PO (08:16)
[2023-04-01 08:30] VITALS: BP 136/75; PULSE 89; RESP 18; TEMP 36.5; O2SAT 97
--- NOTE | 2023-04-01 17:18 | HO.PSYCHPN ---
Subjective Subjective Date of Service: 04/01/23 Reason For Visit: psychosis Subjective Notes: Conditional Voluntary Healthcare Proxy: No Guardianship: No Medical Problems Affecting Mental Status: No Interim History: COVID +. Improved ability to clearly communicate her feelings with tangential disorganized content decreasing. Tearful, sad, more accepting of support. Able to offer her opinion regarding her OP work and if providers know her well or not. She reports she feels they do not know her well enough to offer an opinion. Continues with some paranoia, intermittent agitation and behavioral dycontrol, however with improvement. Asks about discharge. Expresses missing her dog and cat-tearful about this. Team reports she is in good control of her behavior. Medication Compliance: Yes Side effects from medications: No Attending Groups: No Review of Systems Acute medical concerns: Yes COVID+ Medical Review of Systems: unchanged Review of Systems Constitutional: Reports body ache(s) Mental Status Exam Mental Status Exam Patient Appearance: Fatigued, Disheveled and Unkempt Patient Orientation: Person and Place Level of Consciousness: Alert Patient Behavior: Talkative, Cooperative, Passive, Anxious, Fearful, Fatigued, Distractible, Good Eye Contact and Crying Mood Description: Depressed and Labile Affect Description: Flat Patient Cognition Impaired: No Ability to Follow Directions: Fair Speech Pattern: Perseverating, Spontaneous Speech, Rambling, Soft-Spoken, Rapid and Pressured Memory Description: Remote Impaired Hallucinations: None Delusions: Paranoid Ideation and Present Perceptual Disturbances: Depersonalization and Derealization Thought Process: Illogical, Distracted, Rumination and Confusion Thought Content: positive for [place], positive for Circumstantial, positive for Perseveration, positive for Poverty of Content, positive for Preoccupation and positive for Loose Associations Depressive Symptoms: Increased Anxiety, Diff. Making Decisions, Increased Irritability, Crying Spells, Feelings of Worthlessness, Hopelessness, Unhappiness, Increased Fatigue, Low Self Esteem, Loss of Energy and Difficulty Concentrating Judgement: Poor Diagnostics Vital Signs (24Hr): Vital Signs - 24 hr 03/31/23 18:45 04/01/23 08:30 Temperature 98.2 F 97.7 F Pulse Rate 95 89 Respiratory Rate 16 18 Blood Pressure 128/62 136/75 Pulse Oximetry 96 97 Oxygen Delivery Method Room Air Room Air BMI result Body Mass Index 26.6 Labs 03/15/23 17:16 03/30/23 08:14 Labs: Laboratory Results - last 48 hr 03/31/23 17:06 COVID-19 ([facility]) Positive A COVID-19 Clin Com See Note Imaging Radiology Impressions: ITS Impressions Head CT 03/15/23 15:32 IMPRESSION: No acute intracranial abnormalities. Medications Medications Current Medications Acetaminophen (Acetaminophen 325 Mg Tablet) 650 mg PO Q6H PRN PRN Reason: Headache/Pain Mild Scale (1-3) Last Admin: 04/01/23 16:33 Dose: 650 mg Al Hydroxide/Mg Hydroxide (Magnesium Hydrox/Alum Hydrox 30 Ml Oral.Susp) 30 ml PO Q6H PRN PRN Reason: Heartburn/Nausea Albuterol Sulfate (Albuterol Sulfate 90 Mcg 8 Gm Inhaler) 2 puff INHALE Q6H PRN PRN Reason: Wheezing Atorvastatin Calcium (Atorvastatin Calcium 40 Mg Tablet) 40 mg PO DAILY [facility] Last Admin: 04/01/23 08:16 Dose: 40 mg Clozapine (Clozapine 100 Mg Tablet) 200 mg PO BEDTIME [facility] Last Admin: 03/31/23 20:43 Dose: 200 mg Divalproex Sodium (Divalproex Sodium Er 500 Mg Tab.Er.24h) 500 mg PO BEDTIME [facility] Last Admin: 03/31/23 20:44 Dose: 500 mg Empagliflozin (Empagliflozin 10 Mg Tablet) 10 mg PO DAILY [facility] Last Admin: 04/01/23 08:15 Dose: 10 mg Ferrous Sulfate (Ferrous Sulfate 324 Mg Tablet.Dr) 324 mg PO DAILY [facility] Last Admin: 04/01/23 08:15 Dose: 324 mg Folic Acid (Folic Acid 1 Mg Tablet) 1 mg PO DAILY [facility] Last Admin: 04/01/23 08:15 Dose: 1 mg Haloperidol (Haloperidol 5 Mg Tablet) 5 mg PO BID [facility] Last Admin: 04/01/23 08:16 Dose: 5 mg Hydroxyzine HCl (Hydroxyzine Hcl 25 Mg Tablet) 25 mg PO Q6H PRN PRN Reason: Anxiety Last Admin: 03/31/23 18:07 Dose: 25 mg Lorazepam (Lorazepam 1 Mg Tablet) 1 mg PO TID PRN PRN Reason: Anxiety Last Admin: 04/01/23 16:22 Dose: 1 mg Magnesium Hydroxide (Milk Of Magnesia 30 Ml Oral.Susp) 30 ml PO DAILY PRN PRN Reason: Constipation Last Admin: 03/26/23 13:48 Dose: 30 ml Magnesium Oxide (Magnesium Oxide 400 Mg Tablet) 400 mg PO DAILY [facility] Last Admin: 04/01/23 08:15 Dose: 400 mg Metformin HCl (Metformin Hcl 1,000 Mg Tablet) 1,000 mg PO DAILY [facility] Last Admin: 04/01/23 08:15 Dose: 1,000 mg Nicotine (Nicotine 21 Mg Patch.Td24) 21 mg TRANSDERMA DAILY PRN PRN Reason: smoking cessation Last Admin: 03/28/23 08:51 Dose: 21 mg Nicotine Polacrilex (Nicotine Polacrilex 2 Mg Gum) 4 mg BUCCAL Q2H PRN PRN Reason: Nicotine Cravings Olanzapine (Olanzapine 5 Mg Tablet) 5 mg PO TID PRN PRN Reason: agitation Last Admin: 04/01/23 16:22 Dose: 5 mg Omeprazole (Omeprazole 20 Mg Capsule.Dr) 20 mg PO DAILY@0630 [facility] Last Admin: 04/01/23 08:15 Dose: 20 mg Thiamine HCl (Thiamine Hcl 100 Mg Tablet) 100 mg PO DAILY [facility] Last Admin: 04/01/23 08:16 Dose: 100 mg Trazodone HCl (Trazodone Hcl 50 Mg Tablet) 50 mg PO BEDTIME MRX1 PRN PRN Reason: Insomnia Last Admin: 03/29/23 20:04 Dose: 50 mg Allergies Allergies Allergy/AdvReac Type Severity Reaction Status Date / Time Sulfa (Sulfonamide Allergy Severe THROAT Verified 03/15/23 18:22 Antibiotics) SWELLING,RASH [Sulfa (Sulfonamides)] sulfamethoxazole Allergy Severe THROAT Verified 03/15/23 18:22 [From Bactrim] SWELLING,RASH trimethoprim [From Bactrim] Allergy Severe THROAT Verified 03/15/23 18:22 SWELLING,RASH morphine [MORPHINE] Allergy Unknown ANAPHYLAXIS Verified 03/15/23 18:22 Assessment & Plan Assessment & Plan (1) Schizoaffective disorder, bipolar type: Status: Acute Code(s): F25.0 - Schizoaffective disorder, bipolar type Plan 52 yo female, hx of schizoaffective disorder, bipolar type, PTSD. Pt has stopped medications with decompensation [employer]. Plan: Re-establish regime Collateral contact, treatment team, mom, Humaira Otero [phone] Diagnostics as needed Encourage milieu involvement. 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 Adjustments moving forward. 03/19/23 Continue regime and plan. Pt reporting some improvement in her mood today. 03/21/23 Patient disorganized, labile; visitor came and patient's for at him and would not be with him. Earlier patient open the freezer and stuck her head in it, standing there and needed to be redirected. Information Systems Architect approach patient while sitting on a chair, curled up in crying. She says I miss my children at 21 and 23.... I lost me to take care of my children... I am not ready for 53, for my birthday... She then said something about a cubby hole... Information Systems Architect tries to inquire to understand better but patient remains tearful and says she just needs to cry some more but will get better on her own. -continue current regimen for now; adjustments have been made and may need time to work 03/22/23 remains disorganized in speech and behavior -increased clozapine to 125 mg 03/23/23 Depakote ER 500 mg hs 03/24/23 Continue current regime 03/25/23 Increase Clozapine to 175 mg HS 03/26/23 Patient remains disorganized, fearful, with bizarre behaviors. Clozapine recently increased so will continue current treatment regimen 03/27/23 Increase Clozapine to 200 mg HS and hold-by history this dose has been effective per OP team. 03/28/2023: Will increase clozapine from 175 mg to 200 mg tonight. 03/29: just increased Clozapine to 200mg 03/28 03/30: Patient presents disorganized, responding to internal stimuli. She reports having auditory and visual hallucinations but did not elaborate. Poor hygiene, disheveled. trash all over room. denies SI/HI. Patients insight and judgment are poor. medication compliant. continue current tx plan. 03/31/23 Dysphoric with some improvement in her communication. Finds Ativan helpful, continues with poor modulation and dysregulation. Haldol 5 mg bid 04/01/23 Continue current regime and plan of care. Informed Consent: further education needed Reason for continued inpatient stay Substantial Risk for: rapid decompensation Time Spent With Patient Time: Total time managing care of this patient today ____ minutes.
[2023-04-01 20:00] VITALS: BP 135/70; PULSE 94; RESP 18; TEMP 36.6; O2SAT 97
[2023-04-01] MEDS: cloZAPine 100 MG TABLET 200 MG PO (21:13)
[2023-04-01] MEDS: Divalproex Sodium ER 500 MG TAB.ER.24H PO (21:13)
[2023-04-02] MEDS: Omeprazole 20 MG CAPSULE.DR PO (06:03)
[2023-04-02] MEDS: Magnesium Oxide 400 MG TABLET PO (08:34)
[2023-04-02] MEDS: Folic Acid 1 MG TABLET PO (08:34)
[2023-04-02] MEDS: Empagliflozin 10 MG TABLET PO (08:34)
[2023-04-02] MEDS: metFORMIN HCl 1,000 MG TABLET 1000 MG PO (08:34)
[2023-04-02] MEDS: Ferrous Sulfate 324 MG TABLET.DR PO (08:35)
[2023-04-02] MEDS: Thiamine HCL 100 MG TABLET PO (08:35)
[2023-04-02] MEDS: OLANZapine 5 MG TABLET PO ×2 (08:35→19:36)
[2023-04-02] MEDS: Atorvastatin Calcium 40 MG TABLET PO (08:35)
[2023-04-02] MEDS: HaloperidoL 5 MG TABLET PO ×2 (08:35→19:37)
[2023-04-02] MEDS: LORazepam 1 MG TABLET PO ×2 (08:35→19:37)
[2023-04-02] MEDS: Acetaminophen 325 MG TABLET 650 MG PO (08:43)
[2023-04-02] MEDS: Milk of Magnesia 30 ML ORAL.SUSP PO (10:19)
[2023-04-02 16:25] VITALS: BP 114/78; PULSE 97; TEMP 36.9; O2SAT 97
[2023-04-02] MEDS: traZODone HCL 50 MG TABLET PO (19:37)
[2023-04-02] MEDS: Divalproex Sodium ER 500 MG TAB.ER.24H PO (19:37)
[2023-04-02] MEDS: cloZAPine 25 MG TABLET 225 MG PO (19:37)
[2023-04-03] MEDS: Omeprazole 20 MG CAPSULE.DR PO (06:01)
[2023-04-03 08:29] VITALS: BP 113/68; PULSE 98; RESP 16; TEMP 36.4; O2SAT 98
[2023-04-03] MEDS: HaloperidoL 5 MG TABLET PO ×2 (08:30→20:10)
[2023-04-03] MEDS: Folic Acid 1 MG TABLET PO (08:30)
[2023-04-03] MEDS: Empagliflozin 10 MG TABLET PO (08:30)
[2023-04-03] MEDS: Thiamine HCL 100 MG TABLET PO (08:30)
[2023-04-03] MEDS: Ferrous Sulfate 324 MG TABLET.DR PO (08:30)
[2023-04-03] MEDS: metFORMIN HCl 1,000 MG TABLET 1000 MG PO (08:30)
[2023-04-03] MEDS: Magnesium Oxide 400 MG TABLET PO (08:30)
[2023-04-03] MEDS: Atorvastatin Calcium 40 MG TABLET PO (08:30)
--- NOTE | 2023-04-03 11:20 | P.PNPSI_ITS ---
Subjective Subjective Date of Service: 04/02/23 Reason For Visit: psychosis Interim History: Late entry note for patient seen on 04/02 Patient calm and present on approach; she is a little more able to engage and asked automotive service writer how he is doing. Patient says that she is good and that she think she is getting a little better; she acknowledges she needs medications for her illness. She agrees to go up on clozapine. Soon however patient starts not making sense, saying that she loves herself, has love and her tummy which is yummy... continues to ramble Mental Status Exam Mental Status Exam Patient Appearance: Fatigued, Disheveled and Unkempt Patient Orientation: Person and Place Level of Consciousness: Alert Patient Behavior: Talkative, Cooperative, Passive, Anxious, Fearful, Fatigued, Distractible, Good Eye Contact and Crying Mood Description: Depressed and Labile Affect Description: Flat Patient Cognition Impaired: No Ability to Follow Directions: Fair Speech Pattern: Perseverating, Spontaneous Speech, Rambling, Soft-Spoken, Rapid and Pressured Memory Description: Remote Impaired Hallucinations: None Delusions: Paranoid Ideation and Present Perceptual Disturbances: Depersonalization and Derealization Thought Process: Illogical, Distracted, Rumination and Confusion Thought Content: positive for [place], positive for Circumstantial, positive for Perseveration, positive for Poverty of Content, positive for Preoccupation and positive for Loose Associations Depressive Symptoms: Increased Anxiety, Diff. Making Decisions, Increased Irritability, Crying Spells, Feelings of Worthlessness, Hopelessness, Unhappiness, Increased Fatigue, Low Self Esteem, Loss of Energy and Difficulty Concentrating Judgement: Poor Diagnostics Vital Signs (24Hr): Vital Signs - 24 hr 04/02/23 16:25 Temperature 98.4 F Pulse Rate 97 Blood Pressure 114/78 Pulse Oximetry 97 Oxygen Delivery Method Room Air BMI result Body Mass Index 26.6 Labs 03/15/23 17:16 03/30/23 08:14 Imaging Radiology Impressions: ITS Impressions Head CT 03/15/23 15:32 IMPRESSION: No acute intracranial abnormalities. Medications Medications Current Medications Acetaminophen (Acetaminophen 325 Mg Tablet) 650 mg PO Q6H PRN PRN Reason: Headache/Pain Mild Scale (1-3) Last Admin: 04/02/23 08:43 Dose: 650 mg Al Hydroxide/Mg Hydroxide (Magnesium Hydrox/Alum Hydrox 30 Ml Oral.Susp) 30 ml PO Q6H PRN PRN Reason: Heartburn/Nausea Albuterol Sulfate (Albuterol Sulfate 90 Mcg 8 Gm Inhaler) 2 puff INHALE Q6H PRN PRN Reason: Wheezing Atorvastatin Calcium (Atorvastatin Calcium 40 Mg Tablet) 40 mg PO DAILY [facility] Last Admin: 04/03/23 08:30 Dose: 40 mg Clozapine (Clozapine 25 Mg Tablet) 225 mg PO BEDTIME [facility] Last Admin: 04/02/23 19:37 Dose: 225 mg Divalproex Sodium (Divalproex Sodium Er 500 Mg Tab.Er.24h) 500 mg PO BEDTIME [facility] Last Admin: 04/02/23 19:37 Dose: 500 mg Docusate Sodium (Docusate Sodium 100 Mg Capsule) 100 mg PO BID PRN PRN Reason: constipation Empagliflozin (Empagliflozin 10 Mg Tablet) 10 mg PO DAILY [facility] Last Admin: 04/03/23 08:30 Dose: 10 mg Ferrous Sulfate (Ferrous Sulfate 324 Mg Tablet.Dr) 324 mg PO DAILY [facility] Last Admin: 04/03/23 08:30 Dose: 324 mg Folic Acid (Folic Acid 1 Mg Tablet) 1 mg PO DAILY [facility] Last Admin: 04/03/23 08:30 Dose: 1 mg Haloperidol (Haloperidol 5 Mg Tablet) 5 mg PO BID [facility] Last Admin: 04/03/23 08:30 Dose: 5 mg Hydroxyzine HCl (Hydroxyzine Hcl 25 Mg Tablet) 25 mg PO Q6H PRN PRN Reason: Anxiety Last Admin: 03/31/23 18:07 Dose: 25 mg Lorazepam (Lorazepam 1 Mg Tablet) 1 mg PO TID PRN PRN Reason: Anxiety Last Admin: 04/02/23 19:37 Dose: 1 mg Magnesium Hydroxide (Milk Of Magnesia 30 Ml Oral.Susp) 30 ml PO DAILY PRN PRN Reason: Constipation Last Admin: 04/02/23 10:19 Dose: 30 ml Magnesium Oxide (Magnesium Oxide 400 Mg Tablet) 400 mg PO DAILY [facility] Last Admin: 04/03/23 08:30 Dose: 400 mg Metformin HCl (Metformin Hcl 1,000 Mg Tablet) 1,000 mg PO DAILY [facility] Last Admin: 04/03/23 08:30 Dose: 1,000 mg Nicotine (Nicotine 21 Mg Patch.Td24) 21 mg TRANSDERMA DAILY PRN PRN Reason: smoking cessation Last Admin: 03/28/23 08:51 Dose: 21 mg Nicotine Polacrilex (Nicotine Polacrilex 2 Mg Gum) 4 mg BUCCAL Q2H PRN PRN Reason: Nicotine Cravings Olanzapine (Olanzapine 5 Mg Tablet) 5 mg PO TID PRN PRN Reason: agitation Last Admin: 04/02/23 19:36 Dose: 5 mg Omeprazole (Omeprazole 20 Mg Capsule.) 20 mg PO DAILY@0630 [facility] Last Admin: 04/03/23 06:01 Dose: 20 mg Thiamine HCl (Thiamine Hcl 100 Mg Tablet) 100 mg PO DAILY [facility] Last Admin: 04/03/23 08:30 Dose: 100 mg Trazodone HCl (Trazodone Hcl 50 Mg Tablet) 50 mg PO BEDTIME MRX1 PRN PRN Reason: Insomnia Last Admin: 04/02/23 19:37 Dose: 50 mg Allergies Allergies Allergy/AdvReac Type Severity Reaction Status Date / Time Sulfa (Sulfonamide Allergy Severe THROAT Verified 03/15/23 18:22 Antibiotics) SWELLING,RASH [Sulfa (Sulfonamides)] sulfamethoxazole Allergy Severe THROAT Verified 03/15/23 18:22 [From Bactrim] SWELLING,RASH trimethoprim [From Bactrim] Allergy Severe THROAT Verified 03/15/23 18:22 SWELLING,RASH morphine [MORPHINE] Allergy Unknown ANAPHYLAXIS Verified 03/15/23 18:22 Assessment & Plan Assessment & Plan (1) Schizoaffective disorder, bipolar type: Status: Acute Code(s): F25.0 - Schizoaffective disorder, bipolar type Plan 52 yo female, hx of schizoaffective disorder, bipolar type, PTSD. 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 Plan: Re-establish regime Collateral contact, treatment team, mom, Humaira Otero [phone] Diagnostics as needed Encourage milieu involvement. 03/19/23 Continue regime, team reports noncompliance GREEN BUILDING MATERIALS DESIGNER ~4-6 days. Adjustments moving forward. 03/19/23 Continue regime and plan. Pt reporting some improvement in her mood today. 03/21/23 Patient disorganized, labile; visitor came and patient's for at him and would not be with him. Earlier patient open the freezer and stuck her head in it, standing there and needed to be redirected. Director Of Student Life approach patient while sitting on a chair, curled up in crying. She says I miss my children at 21 and 22.... I lost me to take care of my children... I am not ready for 53, for my birthday... She then said something about a cubby hole... Director Of Student Life tries to inquire to understand better but patient remains tearful and says she just needs to cry some more but will get better on her own. -continue current regimen for now; adjustments have been made and may need time to work 03/22/23 remains disorganized in speech and behavior -increased clozapine to 125 mg 03/23/23 Depakote ER 500 mg hs 03/24/23 Continue current regime 03/25/23 Increase Clozapine to 175 mg HS 03/26/23 Patient remains disorganized, fearful, with bizarre behaviors. Clozapine recently increased so will continue current treatment regimen 03/27/23 Increase Clozapine to 200 mg HS and hold-by history this dose has been effective per OP team. 03/28/2023: Will increase clozapine from 175 mg to 200 mg tonight. 03/29: just increased Clozapine to 200mg 03/28 03/30: Patient presents disorganized, responding to internal stimuli. She reports having auditory and visual hallucinations but did not elaborate. Poor hygiene, disheveled. trash all over room. denies SI/HI. Patients insight and judgment are poor. medication compliant. continue current tx plan. 03/31/23 Dysphoric with some improvement in her communication. Finds Ativan helpful, continues with poor modulation and dysregulation. Haldol 5 mg bid 04/01/23 Continue current regime and plan of care. 04/02/23 little easier with which to engage however remains Disorganized in speech and behavior -increase clozapine a 25 mg Patient educated on: diagnosis and medication risk/benefits Informed Consent: understands, does not understand and further education needed Reason for continued inpatient stay Substantial Risk for: inability to function Time Spent With Patient Time: Total time managing care of this patient today ____ minutes.
--- NOTE | 2023-04-03 12:53 | HO.PSYCHPN ---
Subjective Subjective Date of Service: 04/03/23 Reason For Visit: psychosis Subjective Notes: Conditional Voluntary Healthcare Proxy: No Guardianship: No Medical Problems Affecting Mental Status: No Interim History: COVID+ Temp 96.9. Denies sx, asks don't you think this COVID stuff is a scam? . Depressed, labile, clearly preoccupied with thoughts-napping at times. Appears more attentive to milieu today. Tone, pitch, volume of voice changes often. Medication Compliance: Yes Side effects from medications: No Attending Groups: No Review of Systems Acute medical concerns: No COVID+ Medical Review of Systems: unchanged Review of Systems Constitutional: Reports fatigue Comments: COVID 19 Endocrine: Reports fatigue Mental Status Exam Mental Status Exam Patient Appearance: Fatigued, Disheveled and Unkempt Patient Orientation: Person and Place Level of Consciousness: Alert Patient Behavior: Talkative, Cooperative, Passive, Anxious, Fearful, Fatigued, Distractible, Good Eye Contact and Crying Mood Description: Depressed and Labile Affect Description: Flat Patient Cognition Impaired: No Ability to Follow Directions: Fair Speech Pattern: Perseverating, Spontaneous Speech, Rambling, Soft-Spoken, Rapid and Pressured Memory Description: Remote Impaired Hallucinations: None Delusions: Paranoid Ideation and Present Perceptual Disturbances: Depersonalization and Derealization Thought Process: Illogical, Distracted, Rumination and Confusion Thought Content: positive for [place], positive for Circumstantial, positive for Perseveration, positive for Poverty of Content, positive for Preoccupation and positive for Loose Associations Depressive Symptoms: Increased Anxiety, Diff. Making Decisions, Increased Irritability, Crying Spells, Feelings of Worthlessness, Hopelessness, Unhappiness, Increased Fatigue, Low Self Esteem, Loss of Energy and Difficulty Concentrating Judgement: Poor Diagnostics Vital Signs (24Hr): Vital Signs - 24 hr 04/02/23 16:25 04/03/23 08:29 Temperature 98.4 F 97.6 F Pulse Rate 97 98 Respiratory Rate 16 Blood Pressure 114/78 113/68 Pulse Oximetry 97 98 Oxygen Delivery Method Room Air Room Air BMI result Body Mass Index 26.6 Labs 03/15/23 17:16 03/30/23 08:14 Imaging Radiology Impressions: ITS Impressions Head CT 03/15/23 15:32 IMPRESSION: No acute intracranial abnormalities. Medications Medications Current Medications Acetaminophen (Acetaminophen 325 Mg Tablet) 650 mg PO Q6H PRN PRN Reason: Headache/Pain Mild Scale (1-3) Last Admin: 04/02/23 08:43 Dose: 650 mg Al Hydroxide/Mg Hydroxide (Magnesium Hydrox/Alum Hydrox 30 Ml Oral.Susp) 30 ml PO Q6H PRN PRN Reason: Heartburn/Nausea Albuterol Sulfate (Albuterol Sulfate 90 Mcg 8 Gm Inhaler) 2 puff INHALE Q6H PRN PRN Reason: Wheezing Atorvastatin Calcium (Atorvastatin Calcium 40 Mg Tablet) 40 mg PO DAILY [facility] Last Admin: 04/03/23 08:30 Dose: 40 mg Clozapine (Clozapine 25 Mg Tablet) 225 mg PO BEDTIME [facility] Last Admin: 04/02/23 19:37 Dose: 225 mg Divalproex Sodium (Divalproex Sodium Er 500 Mg Tab.Er.24h) 500 mg PO BEDTIME [facility] Last Admin: 04/02/23 19:37 Dose: 500 mg Docusate Sodium (Docusate Sodium 100 Mg Capsule) 100 mg PO BID PRN PRN Reason: constipation Empagliflozin (Empagliflozin 10 Mg Tablet) 10 mg PO DAILY [facility] Last Admin: 04/03/23 08:30 Dose: 10 mg Ferrous Sulfate (Ferrous Sulfate 324 Mg Tablet.Dr) 324 mg PO DAILY [facility] Last Admin: 04/03/23 08:30 Dose: 324 mg Folic Acid (Folic Acid 1 Mg Tablet) 1 mg PO DAILY [facility] Last Admin: 04/03/23 08:30 Dose: 1 mg Haloperidol (Haloperidol 5 Mg Tablet) 5 mg PO BID [facility] Last Admin: 04/03/23 08:30 Dose: 5 mg Hydroxyzine HCl (Hydroxyzine Hcl 25 Mg Tablet) 25 mg PO Q6H PRN PRN Reason: Anxiety Last Admin: 03/31/23 18:07 Dose: 25 mg Lorazepam (Lorazepam 1 Mg Tablet) 1 mg PO TID PRN PRN Reason: Anxiety Last Admin: 04/02/23 19:37 Dose: 1 mg Magnesium Hydroxide (Milk Of Magnesia 30 Ml Oral.Susp) 30 ml PO DAILY PRN PRN Reason: Constipation Last Admin: 04/02/23 10:19 Dose: 30 ml Magnesium Oxide (Magnesium Oxide 400 Mg Tablet) 400 mg PO DAILY [facility] Last Admin: 04/03/23 08:30 Dose: 400 mg Metformin HCl (Metformin Hcl 1,000 Mg Tablet) 1,000 mg PO DAILY [facility] Last Admin: 04/03/23 08:30 Dose: 1,000 mg Nicotine (Nicotine 21 Mg Patch.Td24) 21 mg TRANSDERMA DAILY PRN PRN Reason: smoking cessation Last Admin: 03/28/23 08:51 Dose: 21 mg Nicotine Polacrilex (Nicotine Polacrilex 2 Mg Gum) 4 mg BUCCAL Q2H PRN PRN Reason: Nicotine Cravings Olanzapine (Olanzapine 5 Mg Tablet) 5 mg PO TID PRN PRN Reason: agitation Last Admin: 04/02/23 19:36 Dose: 5 mg Omeprazole (Omeprazole 20 Mg Capsule.Dr) 20 mg PO DAILY@0630 [facility] Last Admin: 04/03/23 06:01 Dose: 20 mg Thiamine HCl (Thiamine Hcl 100 Mg Tablet) 100 mg PO DAILY [facility] Last Admin: 04/03/23 08:30 Dose: 100 mg Trazodone HCl (Trazodone Hcl 50 Mg Tablet) 50 mg PO BEDTIME MRX1 PRN PRN Reason: Insomnia Last Admin: 04/02/23 19:37 Dose: 50 mg Allergies Allergies Allergy/AdvReac Type Severity Reaction Status Date / Time Sulfa (Sulfonamide Allergy Severe THROAT Verified 03/15/23 18:22 Antibiotics) SWELLING,RASH [Sulfa (Sulfonamides)] sulfamethoxazole Allergy Severe THROAT Verified 03/15/23 18:22 [From Bactrim] SWELLING,RASH trimethoprim [From Bactrim] Allergy Severe THROAT Verified 03/15/23 18:22 SWELLING,RASH morphine [MORPHINE] Allergy Unknown ANAPHYLAXIS Verified 03/15/23 18:22 Assessment & Plan Assessment & Plan (1) Schizoaffective disorder, bipolar type: Status: Acute Code(s): F25.0 - Schizoaffective disorder, bipolar type Plan 52 yo female, hx of schizoaffective disorder, bipolar type, PTSD. 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 Plan: Re-establish regime Collateral contact, treatment team, mom, Humaira Otero [phone] Diagnostics as needed Encourage milieu involvement. 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 Adjustments moving forward. 03/19/23 Continue regime and plan. Pt reporting some improvement in her mood today. 03/21/23 Patient disorganized, labile; visitor came and patient's for at him and would not be with him. Earlier patient open the freezer and stuck her head in it, standing there and needed to be redirected. [employer] Opt[employer] Technician approach patient while sitting on a chair, curled up in crying. She says I miss my children at 21 and 22.... I lost me to take care of my children... I am not ready for 53, for my birthday... She then said something about a cubby hole... Precision Optics Technician tries to inquire to understand better but patient remains tearful and says she just needs to cry some more but will get better on her own. -continue current regimen for now; adjustments have been made and may need time to work 03/22/23 remains disorganized in speech and behavior -increased clozapine to 125 mg 03/23/23 Depakote ER 500 mg hs 03/24/23 Continue current regime 03/25/23 Increase Clozapine to 175 mg HS 03/26/23 Patient remains disorganized, fearful, with bizarre behaviors. Clozapine recently increased so will continue current treatment regimen 03/27/23 Increase Clozapine to 200 mg HS and hold-by history this dose has been effective per OP team. 03/28/2023: Will increase clozapine from 175 mg to 200 mg tonight. 03/29: just increased Clozapine to 200mg 03/28 03/30: Patient presents disorganized, responding to internal stimuli. She reports having auditory and visual hallucinations but did not elaborate. Poor hygiene, disheveled. trash all over room. denies SI/HI. Patients insight and judgment are poor. medication compliant. continue current tx plan. 03/31/23 Dysphoric with some improvement in her communication. Finds Ativan helpful, continues with poor modulation and dysregulation. Haldol 5 mg bid 04/01/23 Continue current regime and plan of care. 04/02/23 little easier with which to engage however remains Disorganized in speech and behavior -increase clozapine a 25 mg 04/03/23 Continue current regime and plan of care. Informed Consent: does not understand and further education needed Reason for continued inpatient stay Substantial Risk for: rapid decompensation Time Spent With Patient Time: Total time managing care of this patient today ____ minutes.
[2023-04-03] MEDS: Acetaminophen 325 MG TABLET 650 MG PO (14:29)
[2023-04-03 18:00] VITALS: TEMP 37; O2SAT 98
[2023-04-03] MEDS: OLANZapine 5 MG TABLET PO (20:10)
[2023-04-03] MEDS: traZODone HCL 50 MG TABLET PO (20:10)
[2023-04-03] MEDS: LORazepam 1 MG TABLET PO (20:10)
[2023-04-03] MEDS: cloZAPine 25 MG TABLET 225 MG PO (20:11)
[2023-04-03] MEDS: Divalproex Sodium ER 500 MG TAB.ER.24H PO (20:11)
[2023-04-04] MEDS: Omeprazole 20 MG CAPSULE.DR PO (06:02)
[2023-04-04 08:00] VITALS: BP 142/89; PULSE 97; RESP 18; TEMP 36.5; O2SAT 99
--- NOTE | 2023-04-04 08:44 | P.PNPSI_ITS ---
Subjective Subjective Date of Service: 04/04/23 Reason For Visit: psychosis Subjective Notes: Conditional Voluntary Healthcare Proxy: No Guardianship: No Medical Problems Affecting Mental Status: No Interim History: Pt seen, reviewed with team. Today, she is alert, responsive, dysphoric-expressed gratitude for the team during this time for helping her through. Tearful at times however improved thought content and process with some increase in logical modality. Medication Compliance: Yes Side effects from medications: No Attending Groups: No Review of Systems COVID+ Medical Review of Systems: unchanged Review of Systems Review of Systems Yes all other systems are reviewed and are negative Mental Status Exam Mental Status Exam Patient Appearance: Fatigued Patient Orientation: Person, Place and Situation Level of Consciousness: Alert Patient Behavior: Talkative, Cooperative, Passive, Anxious, Fatigued, Distractible, Good Eye Contact and Crying Mood Description: Depressed Affect Description: Flat Patient Cognition Impaired: No Ability to Follow Directions: Fair Speech Pattern: Spontaneous Speech and Soft-Spoken Memory Description: Episodic Impaired Hallucinations: None Delusions: Not Present Perceptual Disturbances: Depersonalization and Derealization Thought Process: Distracted and Rumination Thought Content: positive for [place], positive for Circumstantial and positive for Perseveration Depressive Symptoms: Increased Anxiety, Crying Spells, Hopelessness, Unhappiness, Increased Fatigue, Low Self Esteem, Loss of Energy and Difficulty Concentrating Judgement: Fair Diagnostics Vital Signs (24Hr): Vital Signs - 24 hr 04/03/23 18:00 Temperature 98.6 F Pulse Oximetry 98 Oxygen Delivery Method Room Air BMI result Body Mass Index 26.6 Labs 03/15/23 17:16 03/30/23 08:14 Imaging Radiology Impressions: ITS Impressions Head CT 03/15/23 15:32 IMPRESSION: No acute intracranial abnormalities. Medications Medications Current Medications Acetaminophen (Acetaminophen 325 Mg Tablet) 650 mg PO Q6H PRN PRN Reason: Headache/Pain Mild Scale (1-3) Last Admin: 04/03/23 14:29 Dose: 650 mg Al Hydroxide/Mg Hydroxide (Magnesium Hydrox/Alum Hydrox 30 Ml Oral.Susp) 30 ml PO Q6H PRN PRN Reason: Heartburn/Nausea Albuterol Sulfate (Albuterol Sulfate 90 Mcg 8 Gm Inhaler) 2 puff INHALE Q6H PRN PRN Reason: Wheezing Atorvastatin Calcium (Atorvastatin Calcium 40 Mg Tablet) 40 mg PO DAILY [facility] Last Admin: 04/03/23 08:30 Dose: 40 mg Benzocaine (Throat Lozenge, Medicated Lozenge) 1 lozenge MUCOUS MEM Q2H PRN PRN Reason: Sore Throat Clozapine (Clozapine 25 Mg Tablet) 225 mg PO BEDTIME [facility] Last Admin: 04/03/23 20:11 Dose: 225 mg Divalproex Sodium (Divalproex Sodium Er 500 Mg Tab.Er.24h) 500 mg PO BEDTIME [facility] Last Admin: 04/03/23 20:11 Dose: 500 mg Docusate Sodium (Docusate Sodium 100 Mg Capsule) 100 mg PO BID PRN PRN Reason: constipation Empagliflozin (Empagliflozin 10 Mg Tablet) 10 mg PO DAILY [facility] Last Admin: 04/03/23 08:30 Dose: 10 mg Ferrous Sulfate (Ferrous Sulfate 324 Mg Tablet.Dr) 324 mg PO DAILY [facility] Last Admin: 04/03/23 08:30 Dose: 324 mg Folic Acid (Folic Acid 1 Mg Tablet) 1 mg PO DAILY [facility] Last Admin: 04/03/23 08:30 Dose: 1 mg Haloperidol (Haloperidol 5 Mg Tablet) 5 mg PO BID [facility] Last Admin: 04/03/23 20:10 Dose: 5 mg Hydroxyzine HCl (Hydroxyzine Hcl 25 Mg Tablet) 25 mg PO Q6H PRN PRN Reason: Anxiety Last Admin: 03/31/23 18:07 Dose: 25 mg Lorazepam (Lorazepam 1 Mg Tablet) 1 mg PO TID PRN PRN Reason: Anxiety Last Admin: 04/03/23 20:10 Dose: 1 mg Magnesium Hydroxide (Milk Of Magnesia 30 Ml Oral.Susp) 30 ml PO DAILY PRN PRN Reason: Constipation Last Admin: 04/02/23 10:19 Dose: 30 ml Magnesium Oxide (Magnesium Oxide 400 Mg Tablet) 400 mg PO DAILY [facility] Last Admin: 04/03/23 08:30 Dose: 400 mg Metformin HCl (Metformin Hcl 1,000 Mg Tablet) 1,000 mg PO DAILY [facility] Last Admin: 04/03/23 08:30 Dose: 1,000 mg Nicotine (Nicotine 21 Mg Patch.Td24) 21 mg TRANSDERMA DAILY PRN PRN Reason: smoking cessation Last Admin: 03/28/23 08:51 Dose: 21 mg Nicotine Polacrilex (Nicotine Polacrilex 2 Mg Gum) 4 mg BUCCAL Q2H PRN PRN Reason: Nicotine Cravings Olanzapine (Olanzapine 5 Mg Tablet) 5 mg PO TID PRN PRN Reason: agitation Last Admin: 04/03/23 20:10 Dose: 5 mg Omeprazole (Omeprazole 20 Mg Capsule.) 20 mg PO DAILY@0630 [facility] Last Admin: 04/04/23 06:02 Dose: 20 mg Thiamine HCl (Thiamine Hcl 100 Mg Tablet) 100 mg PO DAILY [facility] Last Admin: 04/03/23 08:30 Dose: 100 mg Trazodone HCl (Trazodone Hcl 50 Mg Tablet) 50 mg PO BEDTIME MRX1 PRN PRN Reason: Insomnia Last Admin: 04/03/23 20:10 Dose: 50 mg Allergies Allergies Allergy/AdvReac Type Severity Reaction Status Date / Time Sulfa (Sulfonamide Allergy Severe THROAT Verified 03/15/23 18:22 Antibiotics) SWELLING,RASH [Sulfa (Sulfonamides)] sulfamethoxazole Allergy Severe THROAT Verified 03/15/23 18:22 [From Bactrim] SWELLING,RASH trimethoprim [From Bactrim] Allergy Severe THROAT Verified 03/15/23 18:22 SWELLING,RASH morphine [MORPHINE] Allergy Unknown ANAPHYLAXIS Verified 03/15/23 18:22 Assessment & Plan Assessment & Plan (1) Schizoaffective disorder, bipolar type: Status: Acute Code(s): F25.0 - Schizoaffective disorder, bipolar type Plan 52 yo female, hx of schizoaffective disorder, bipolar type, PTSD. 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 Plan: Re-establish regime Collateral contact, treatment team, mom, Humaira Otero [phone] Diagnostics as needed Encourage milieu involvement. 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 Adjustments moving forward. 03/19/23 Continue regime and plan. Pt reporting some improvement in her mood today. 03/21/23 Patient disorganized, labile; visitor came and patient's for at him and would not be with him. Earlier patient open the freezer and stuck her head in it, standing there and needed to be redirected. Underground Mine Machinery Mechanic approach patient while sitting on a chair, curled up in crying. She says I miss my children at 21 and 22.... I lost me to take care of my children... I am not ready for 53, for my birthday... She then said something about a cubby hole... Underground Mine Machinery Mechanic tries to inquire to understand better but patient remains tearful and says she just needs to cry some more but will get better on her own. -continue current regimen for now; adjustments have been made and may need time to work 03/22/23 remains disorganized in speech and behavior -increased clozapine to 125 mg 03/23/23 Depakote ER 500 mg hs 03/24/23 Continue current regime 03/25/23 Increase Clozapine to 175 mg HS 03/26/23 Patient remains disorganized, fearful, with bizarre behaviors. Clozapine recently increased so will continue current treatment regimen 03/27/23 Increase Clozapine to 200 mg HS and hold-by history this dose has been effective per OP team. 03/28/2023: Will increase clozapine from 175 mg to 200 mg tonight. 03/29: just increased Clozapine to 200mg 03/28 03/30: Patient presents disorganized, responding to internal stimuli. She reports having auditory and visual hallucinations but did not elaborate. Poor hygiene, disheveled. trash all over room. denies SI/HI. Patients insight and judgment are poor. medication compliant. continue current tx plan. 03/31/23 Dysphoric with some improvement in her communication. Finds Ativan helpful, continues with poor modulation and dysregulation. Haldol 5 mg bid 04/01/23 Continue current regime and plan of care. 04/02/23 little easier with which to engage however remains Disorganized in speech and behavior -increase clozapine a 25 mg 04/03/23 Continue current regime and plan of care. 04/04/23 Continue current regime and plan of care. Informed Consent: further education needed Reason for continued inpatient stay Substantial Risk for: rapid decompensation Time Spent With Patient Time: Total time managing care of this patient today ____ minutes.
[2023-04-04] MEDS: Thiamine HCL 100 MG TABLET PO (09:45)
[2023-04-04] MEDS: Empagliflozin 10 MG TABLET PO (09:45)
[2023-04-04] MEDS: Magnesium Oxide 400 MG TABLET PO (09:45)
[2023-04-04] MEDS: Atorvastatin Calcium 40 MG TABLET PO (09:45)
[2023-04-04] MEDS: Folic Acid 1 MG TABLET PO (09:45)
[2023-04-04] MEDS: HaloperidoL 5 MG TABLET PO ×2 (09:45→20:10)
[2023-04-04] MEDS: Ferrous Sulfate 324 MG TABLET.DR PO (09:45)
[2023-04-04] MEDS: metFORMIN HCl 1,000 MG TABLET 1000 MG PO (09:45)
[2023-04-04] MEDS: LORazepam 1 MG TABLET PO (16:17)
--- NOTE | 2023-04-04 16:30 | PC.NURSE ---
Patient found sobbing uncontrollably in her room. reported to TW that she was letting her emotions out. When asked if she wanted to talk about anything she replied, It's hard to let people go who hurt you. Patient declined to expand on this. Patient asked for medication. When TW went back into room to administer Lorazepam patient was sitting on bed smiling stating, I think I'll do some cleaning now. Maybe the floor.
[2023-04-04 16:47] VITALS: BP 130/71; PULSE 95; RESP 18; TEMP 36.4; O2SAT 98
[2023-04-04] MEDS: Divalproex Sodium ER 500 MG TAB.ER.24H PO (20:10)
[2023-04-04] MEDS: hydrOXYzine HCL 25 MG TABLET PO (20:10)
[2023-04-04] MEDS: cloZAPine 25 MG TABLET 225 MG PO (20:10)
[2023-04-04] MEDS: traZODone HCL 50 MG TABLET PO (20:10)
[2023-04-05] MEDS: Omeprazole 20 MG CAPSULE.DR PO (06:41)
[2023-04-05 07:16] LABS: Creatinine Clr Calc Pharmacy 77.3; Estimated Glomerular Filt Rate > 60
[2023-04-05 08:20] VITALS: BP 115/64; PULSE 81; TEMP 36.1; O2SAT 95
[2023-04-05] MEDS: Atorvastatin Calcium 40 MG TABLET PO (09:12)
[2023-04-05] MEDS: metFORMIN HCl 1,000 MG TABLET 1000 MG PO (09:12)
[2023-04-05] MEDS: Ferrous Sulfate 324 MG TABLET.DR PO (09:13)
[2023-04-05] MEDS: HaloperidoL 5 MG TABLET PO ×2 (09:13→19:04)
[2023-04-05] MEDS: Thiamine HCL 100 MG TABLET PO (09:13)
[2023-04-05] MEDS: Magnesium Oxide 400 MG TABLET PO (09:13)
[2023-04-05] MEDS: Empagliflozin 10 MG TABLET PO (09:13)
[2023-04-05] MEDS: Folic Acid 1 MG TABLET PO (09:13)
[2023-04-05] MEDS: Acetaminophen 325 MG TABLET 650 MG PO (09:23)
[2023-04-05] MEDS: LORazepam 1 MG TABLET PO ×2 (09:23→16:38)
[2023-04-05] MEDS: Throat Lozenge, Medicated LOZENGE 1 LOZENGE MUCOUS MEM ×2 (09:28→12:49)
--- NOTE | 2023-04-05 14:25 | HO.PSYCHPN ---
Subjective Subjective Date of Service: 04/05/23 Reason For Visit: psychosis Subjective Notes: Conditional Voluntary Healthcare Proxy: No Guardianship: No Medical Problems Affecting Mental Status: No Interim History: Pt seen, discussed with team. Improved today- cleaned and organized her room, talking about discharge, returning to therapy and putting different things in place so I can take better care of myself. Discussed her concerns with Clozapine and weight gain. I need to focus on my health, that means taking my medicines and having stronger healthier habits Medication Compliance: Yes Side effects from medications: No Attending Groups: No Review of Systems Acute medical concerns: No COVID+ Medical Review of Systems: unchanged Review of Systems Review of Systems Yes all other systems are reviewed and are negative Mental Status Exam Mental Status Exam Patient Appearance: Fatigued Patient Orientation: Person, Place, Time and Situation Level of Consciousness: Alert Patient Behavior: Talkative, Cooperative, Distractible and Good Eye Contact Mood Description: Constricted Affect Description: Constricted Patient Cognition Impaired: No Ability to Follow Directions: Good Speech Pattern: Spontaneous Speech and Soft-Spoken Memory Description: Episodic Impaired Hallucinations: None Delusions: Not Present Perceptual Disturbances: Depersonalization and Derealization Thought Process: Distracted and Rumination Thought Content: positive for [place], positive for Circumstantial and positive for Perseveration Depressive Symptoms: Low Self Esteem Judgement: Fair Diagnostics Vital Signs (24Hr): Vital Signs - 24 hr 04/04/23 16:47 04/05/23 08:20 Temperature 97.5 F 96.9 F Pulse Rate 95 81 Respiratory Rate 18 Blood Pressure 130/71 115/64 Pulse Oximetry 98 95 Oxygen Delivery Method Room Air Room Air BMI result Body Mass Index 26.6 Labs 03/15/23 17:16 04/05/23 06:56 Labs: Laboratory Results - last 48 hr 04/05/23 06:56 Creatinine 0.87 Estim Creat Clear Calc 77.3 Estimated GFR > 60 Imaging Radiology Impressions: ITS Impressions Head CT 03/15/23 15:32 IMPRESSION: No acute intracranial abnormalities. Medications Medications Current Medications Acetaminophen (Acetaminophen 325 Mg Tablet) 650 mg PO Q6H PRN PRN Reason: Headache/Pain Mild Scale (1-3) Last Admin: 04/05/23 09:23 Dose: 650 mg Al Hydroxide/Mg Hydroxide (Magnesium Hydrox/Alum Hydrox 30 Ml Oral.Susp) 30 ml PO Q6H PRN PRN Reason: Heartburn/Nausea Albuterol Sulfate (Albuterol Sulfate 90 Mcg 8 Gm Inhaler) 2 puff INHALE Q6H PRN PRN Reason: Wheezing Atorvastatin Calcium (Atorvastatin Calcium 40 Mg Tablet) 40 mg PO DAILY [facility] Last Admin: 04/05/23 09:12 Dose: 40 mg Benzocaine (Throat Lozenge, Medicated Lozenge) 1 lozenge MUCOUS MEM Q2H PRN PRN Reason: Sore Throat Last Admin: 04/05/23 12:49 Dose: 1 lozenge Clozapine (Clozapine 25 Mg Tablet) 225 mg PO BEDTIME [facility] Last Admin: 04/04/23 20:10 Dose: 225 mg Divalproex Sodium (Divalproex Sodium Er 500 Mg Tab.Er.24h) 500 mg PO BEDTIME [facility] Last Admin: 04/04/23 20:10 Dose: 500 mg Docusate Sodium (Docusate Sodium 100 Mg Capsule) 100 mg PO BID PRN PRN Reason: constipation Empagliflozin (Empagliflozin 10 Mg Tablet) 10 mg PO DAILY [facility] Last Admin: 04/05/23 09:13 Dose: 10 mg Ferrous Sulfate (Ferrous Sulfate 324 Mg Tablet.Dr) 324 mg PO DAILY [facility] Last Admin: 04/05/23 09:13 Dose: 324 mg Folic Acid (Folic Acid 1 Mg Tablet) 1 mg PO DAILY [facility] Last Admin: 04/05/23 09:13 Dose: 1 mg Haloperidol (Haloperidol 5 Mg Tablet) 5 mg PO BID [facility] Last Admin: 04/05/23 09:13 Dose: 5 mg Hydroxyzine HCl (Hydroxyzine Hcl 25 Mg Tablet) 25 mg PO Q6H PRN PRN Reason: Anxiety Last Admin: 04/04/23 20:10 Dose: 25 mg Lorazepam (Lorazepam 1 Mg Tablet) 1 mg PO TID PRN PRN Reason: Anxiety Last Admin: 04/05/23 09:23 Dose: 1 mg Magnesium Hydroxide (Milk Of Magnesia 30 Ml Oral.Susp) 30 ml PO DAILY PRN PRN Reason: Constipation Last Admin: 04/02/23 10:19 Dose: 30 ml Magnesium Oxide (Magnesium Oxide 400 Mg Tablet) 400 mg PO DAILY [facility] Last Admin: 04/05/23 09:13 Dose: 400 mg Metformin HCl (Metformin Hcl 1,000 Mg Tablet) 1,000 mg PO DAILY [facility] Last Admin: 04/05/23 09:12 Dose: 1,000 mg Nicotine (Nicotine 21 Mg Patch.Td24) 21 mg TRANSDERMA DAILY PRN PRN Reason: smoking cessation Last Admin: 03/28/23 08:51 Dose: 21 mg Nicotine Polacrilex (Nicotine Polacrilex 2 Mg Gum) 4 mg BUCCAL Q2H PRN PRN Reason: Nicotine Cravings Olanzapine (Olanzapine 5 Mg Tablet) 5 mg PO TID PRN PRN Reason: agitation Last Admin: 04/03/23 20:10 Dose: 5 mg Omeprazole (Omeprazole 20 Mg Capsule.Dr) 20 mg PO DAILY@0630 [facility] Last Admin: 04/05/23 06:41 Dose: 20 mg Thiamine HCl (Thiamine Hcl 100 Mg Tablet) 100 mg PO DAILY [facility] Last Admin: 04/05/23 09:13 Dose: 100 mg Trazodone HCl (Trazodone Hcl 50 Mg Tablet) 50 mg PO BEDTIME [facility]X1 PRN PRN Reason: Insomnia Last Admin: 04/04/23 20:10 Dose: 50 mg Allergies Allergies Allergy/AdvReac Type Severity Reaction Status Date / Time Sulfa (Sulfonamide Allergy Severe THROAT Verified 03/15/23 18:22 Antibiotics) SWELLING,RASH [Sulfa (Sulfonamides)] sulfamethoxazole Allergy Severe THROAT Verified 03/15/23 18:22 [From Bactrim] SWELLING,RASH trimethoprim [From Bactrim] Allergy Severe THROAT Verified 03/15/23 18:22 SWELLING,RASH morphine [MORPHINE] Allergy Unknown ANAPHYLAXIS Verified 03/15/23 18:22 Assessment & Plan Assessment & Plan (1) Schizoaffective disorder, bipolar type: Status: Acute Code(s): F25.0 - Schizoaffective disorder, bipolar type Plan 52 yo female, hx of schizoaffective disorder, bipolar type, PTSD. 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 Plan: Re-establish regime Collateral contact, treatment team, mom, Humaira Otero [phone] Diagnostics as needed Encourage milieu involvement. 03/19/23 Continue regime, team reports noncompliance SUPPORT SPECIALIST ~4-6 days. Adjustments moving forward. 03/19/23 Continue regime and plan. Pt reporting some improvement in her mood today. 03/21/23 Patient disorganized, labile; visitor came and patient's for at him and would not be with him. Earlier patient open the freezer and stuck her head in it, standing there and needed to be redirected. Staffing Executive approach patient while sitting on a chair, curled up in crying. She says I miss my children at 21 and 23.... I lost me to take care of my children... I am not ready for 53, for my birthday... She then said something about a cubby hole... Staffing Executive tries to inquire to understand better but patient remains tearful and says she just needs to cry some more but will get better on her own. -continue current regimen for now; adjustments have been made and may need time to work 03/22/23 remains disorganized in speech and behavior -increased clozapine to 125 mg 03/23/23 Depakote ER 500 mg hs 03/24/23 Continue current regime 03/25/23 Increase Clozapine to 175 mg HS 03/26/23 Patient remains disorganized, fearful, with bizarre behaviors. Clozapine recently increased so will continue current treatment regimen 03/27/23 Increase Clozapine to 200 mg HS and hold-by history this dose has been effective per OP team. 03/28/2023: Will increase clozapine from 175 mg to 200 mg tonight. 03/29: just increased Clozapine to 200mg 03/28 03/30: Patient presents disorganized, responding to internal stimuli. She reports having auditory and visual hallucinations but did not elaborate. Poor hygiene, disheveled. trash all over room. denies SI/HI. Patients insight and judgment are poor. medication compliant. continue current tx plan. 03/31/23 Dysphoric with some improvement in her communication. Finds Ativan helpful, continues with poor modulation and dysregulation. Haldol 5 mg bid 04/01/23 Continue current regime and plan of care. 04/02/23 little easier with which to engage however remains Disorganized in speech and behavior -increase clozapine a 25 mg 04/03/23 Continue current regime and plan of care. 04/04/23 Continue current regime and plan of care. 04/05/23 Continue current regime and plan of care. Patient educated on: medication risk/benefits and therapeutic strategies Informed Consent: understands and further education needed Reason for continued inpatient stay Substantial Risk for: rapid decompensation Time Spent With Patient Time: Total time managing care of this patient today ____ minutes.
[2023-04-05 17:32] VITALS: BP 118/80; PULSE 90; RESP 18; TEMP 36.7; O2SAT 98
[2023-04-05] MEDS: cloZAPine 25 MG TABLET 225 MG PO (19:04)
[2023-04-05] MEDS: traZODone HCL 50 MG TABLET PO (19:04)
[2023-04-05] MEDS: Divalproex Sodium ER 500 MG TAB.ER.24H PO (19:04)
[2023-04-05] MEDS: hydrOXYzine HCL 25 MG TABLET PO (19:04)
[2023-04-06] MEDS: Omeprazole 20 MG CAPSULE.DR PO (06:53)
[2023-04-06 08:24] VITALS: BP 128/69; PULSE 96; RESP 16; TEMP 36.4; O2SAT 98
[2023-04-06] MEDS: Folic Acid 1 MG TABLET PO (08:26)
[2023-04-06] MEDS: Magnesium Oxide 400 MG TABLET PO (08:26)
[2023-04-06] MEDS: Empagliflozin 10 MG TABLET PO (08:26)
[2023-04-06] MEDS: Ferrous Sulfate 324 MG TABLET.DR PO (08:26)
[2023-04-06] MEDS: HaloperidoL 5 MG TABLET PO ×2 (08:26→19:18)
[2023-04-06] MEDS: Thiamine HCL 100 MG TABLET PO (08:26)
[2023-04-06] MEDS: Atorvastatin Calcium 40 MG TABLET PO (08:26)
[2023-04-06] MEDS: metFORMIN HCl 1,000 MG TABLET 1000 MG PO (08:26)
--- NOTE | 2023-04-06 08:49 | PC.NURSE ---
pt refused am blood work. look what they dd to me last time . Pt showed nurse blood stain on clothing located on cubital fossa area maybe I'll change my mind later, but not right now
--- NOTE | 2023-04-06 09:36 | HO.PSYCHPN ---
Subjective Subjective Date of Service: 04/06/23 Reason For Visit: psychosis Subjective Notes: Conditional Voluntary Healthcare Proxy: No Guardianship: No Medical Problems Affecting Mental Status: No Interim History: Pt seen, discussed with team. Improved. Alert, oriented, calm, organized. I want to go home I would like a VNA to help me with medicine. Reflects today on her admission, non compliance with medications prior to admission, and who/what she misses about her home. Medication Compliance: Yes Side effects from medications: No Attending Groups: No Review of Systems Acute medical concerns: No COVID+ Medical Review of Systems: unchanged Review of Systems Review of Systems Yes all other systems are reviewed and are negative Mental Status Exam Mental Status Exam Patient Appearance: Appropriate Patient Orientation: Person, Place, Time and Situation Level of Consciousness: Alert Patient Behavior: Talkative, Cooperative, Distractible and Good Eye Contact Mood Description: Appropriate Affect Description: Appropriate Patient Cognition Impaired: No Ability to Follow Directions: Good Speech Pattern: Spontaneous Speech and Soft-Spoken Memory Description: Episodic Impaired Hallucinations: None Delusions: Not Present Perceptual Disturbances: Depersonalization and Derealization Thought Process: Distracted Thought Content: positive for [place] and positive for Circumstantial Depressive Symptoms: Low Self Esteem Judgement: Good Diagnostics Vital Signs (24Hr): Vital Signs - 24 hr 04/05/23 17:32 04/06/23 08:24 Temperature 98.0 F 97.5 F Pulse Rate 90 96 Respiratory Rate 18 16 Blood Pressure 118/80 128/69 Pulse Oximetry 98 98 Oxygen Delivery Method Room Air Room Air BMI result Body Mass Index 26.6 Labs 03/15/23 17:16 04/05/23 06:56 Labs: Laboratory Results - last 48 hr 04/05/23 06:56 Creatinine 0.87 Estim Creat Clear Calc 77.3 Estimated GFR > 60 Imaging Radiology Impressions: ITS Impressions Head CT 03/15/23 15:32 IMPRESSION: No acute intracranial abnormalities. Medications Medications Current Medications Acetaminophen (Acetaminophen 325 Mg Tablet) 650 mg PO Q6H PRN PRN Reason: Headache/Pain Mild Scale (1-3) Last Admin: 04/05/23 09:23 Dose: 650 mg Al Hydroxide/Mg Hydroxide (Magnesium Hydrox/Alum Hydrox 30 Ml Oral.Susp) 30 ml PO Q6H PRN PRN Reason: Heartburn/Nausea Albuterol Sulfate (Albuterol Sulfate 90 Mcg 8 Gm Inhaler) 2 puff INHALE Q6H PRN PRN Reason: Wheezing Atorvastatin Calcium (Atorvastatin Calcium 40 Mg Tablet) 40 mg PO DAILY [facility] Last Admin: 04/06/23 08:26 Dose: 40 mg Benzocaine (Throat Lozenge, Medicated Lozenge) 1 lozenge MUCOUS MEM Q2H PRN PRN Reason: Sore Throat Last Admin: 04/05/23 12:49 Dose: 1 lozenge Clozapine (Clozapine 25 Mg Tablet) 225 mg PO BEDTIME [facility] Last Admin: 04/05/23 19:04 Dose: 225 mg Divalproex Sodium (Divalproex Sodium Er 500 Mg Tab.Er.24h) 500 mg PO BEDTIME [facility] Last Admin: 04/05/23 19:04 Dose: 500 mg Docusate Sodium (Docusate Sodium 100 Mg Capsule) 100 mg PO BID PRN PRN Reason: constipation Empagliflozin (Empagliflozin 10 Mg Tablet) 10 mg PO DAILY [facility] Last Admin: 04/06/23 08:26 Dose: 10 mg Ferrous Sulfate (Ferrous Sulfate 324 Mg Tablet.Dr) 324 mg PO DAILY [facility] Last Admin: 04/06/23 08:26 Dose: 324 mg Folic Acid (Folic Acid 1 Mg Tablet) 1 mg PO DAILY [facility] Last Admin: 04/06/23 08:26 Dose: 1 mg Haloperidol (Haloperidol 5 Mg Tablet) 5 mg PO BID [facility] Last Admin: 04/06/23 08:26 Dose: 5 mg Hydroxyzine HCl (Hydroxyzine Hcl 25 Mg Tablet) 25 mg PO Q6H PRN PRN Reason: Anxiety Last Admin: 04/05/23 19:04 Dose: 25 mg Lorazepam (Lorazepam 1 Mg Tablet) 1 mg PO TID PRN PRN Reason: Anxiety Last Admin: 04/05/23 16:38 Dose: 1 mg Magnesium Hydroxide (Milk Of Magnesia 30 Ml Oral.Susp) 30 ml PO DAILY PRN PRN Reason: Constipation Last Admin: 04/02/23 10:19 Dose: 30 ml Magnesium Oxide (Magnesium Oxide 400 Mg Tablet) 400 mg PO DAILY [facility] Last Admin: 04/06/23 08:26 Dose: 400 mg Metformin HCl (Metformin Hcl 1,000 Mg Tablet) 1,000 mg PO DAILY [facility] Last Admin: 04/06/23 08:26 Dose: 1,000 mg Nicotine (Nicotine 21 Mg Patch.Td24) 21 mg TRANSDERMA DAILY PRN PRN Reason: smoking cessation Last Admin: 03/28/23 08:51 Dose: 21 mg Nicotine Polacrilex (Nicotine Polacrilex 2 Mg Gum) 4 mg BUCCAL Q2H PRN PRN Reason: Nicotine Cravings Olanzapine (Olanzapine 5 Mg Tablet) 5 mg PO TID PRN PRN Reason: agitation Last Admin: 04/03/23 20:10 Dose: 5 mg Omeprazole (Omeprazole 20 Mg Capsule.Dr) 20 mg PO DAILY@0630 [facility] Last Admin: 04/06/23 06:53 Dose: 20 mg Thiamine HCl (Thiamine Hcl 100 Mg Tablet) 100 mg PO DAILY [facility] Last Admin: 04/06/23 08:26 Dose: 100 mg Trazodone HCl (Trazodone Hcl 50 Mg Tablet) 50 mg PO BEDTIME MRX1 PRN PRN Reason: Insomnia Last Admin: 04/05/23 19:04 Dose: 50 mg Allergies Allergies Allergy/AdvReac Type Severity Reaction Status Date / Time Sulfa (Sulfonamide Allergy Severe THROAT Verified 03/15/23 18:22 Antibiotics) SWELLING,RASH [Sulfa (Sulfonamides)] sulfamethoxazole Allergy Severe THROAT Verified 03/15/23 18:22 [From Bactrim] SWELLING,RASH trimethoprim [From Bactrim] Allergy Severe THROAT Verified 03/15/23 18:22 SWELLING,RASH morphine [MORPHINE] Allergy Unknown ANAPHYLAXIS Verified 03/15/23 18:22 Assessment & Plan Assessment & Plan (1) Schizoaffective disorder, bipolar type: Status: Acute Code(s): F25.0 - Schizoaffective disorder, bipolar type Plan 52 yo female, hx of schizoaffective disorder, bipolar type, PTSD. 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 Plan: Re-establish regime Collateral contact, treatment team, mom, Humaira Otero [phone] Diagnostics as needed Encourage milieu involvement. 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 Adjustments moving forward. 03/19/23 Continue regime and plan. Pt reporting some improvement in her mood today. 03/21/23 Patient disorganized, labile; visitor came and patient's for at him and would not be with him. Earlier patient open the freezer and stuck her head in it, standing there and needed to be redirected. Rehab Nursing Tech approach patient while sitting on a chair, curled up in crying. She says I miss my children at 21 and 22.... I lost me to take care of my children... I am not ready for 53, for my birthday... She then said something about a cubby hole... Rehab Nursing Tech tries to inquire to understand better but patient remains tearful and says she just needs to cry some more but will get better on her own. -continue current regimen for now; adjustments have been made and may need time to work 03/22/23 remains disorganized in speech and behavior -increased clozapine to 125 mg 03/23/23 Depakote ER 500 mg hs 03/24/23 Continue current regime 03/25/23 Increase Clozapine to 175 mg HS 03/26/23 Patient remains disorganized, fearful, with bizarre behaviors. Clozapine recently increased so will continue current treatment regimen 03/27/23 Increase Clozapine to 200 mg HS and hold-by history this dose has been effective per OP team. 03/28/2023: Will increase clozapine from 175 mg to 200 mg tonight. 03/29: just increased Clozapine to 200mg 03/28 03/30: Patient presents disorganized, responding to internal stimuli. She reports having auditory and visual hallucinations but did not elaborate. Poor hygiene, disheveled. trash all over room. denies SI/HI. Patients insight and judgment are poor. medication compliant. continue current tx plan. 03/31/23 Dysphoric with some improvement in her communication. Finds Ativan helpful, continues with poor modulation and dysregulation. Haldol 5 mg bid 04/01/23 Continue current regime and plan of care. 04/02/23 little easier with which to engage however remains Disorganized in speech and behavior -increase clozapine a 25 mg 04/03/23 Continue current regime and plan of care. 04/04/23 Continue current regime and plan of care. 04/05/23 Continue current regime and plan of care. 04/06/23 Tentative discharge planning for 04/07/23. Patient educated on: medication risk/benefits and therapeutic strategies Informed Consent: understands and further education needed Reason for continued inpatient stay Substantial Risk for: harm to self, inability to function and rapid decompensation Time Spent With Patient Time: Total time managing care of this patient today ____ minutes.
[2023-04-06] MEDS: Throat Lozenge, Medicated LOZENGE 1 LOZENGE MUCOUS MEM (11:28)
[2023-04-06 13:15] LABS: Neut%MD 64.8 %; Neutrophils Absolute Auto 7.4 x10*3/uL (2.0-8.3); WBCANC 11.4 X10*3/uL
[2023-04-06] MEDS: Acetaminophen 325 MG TABLET 650 MG PO (13:15)
[2023-04-06] MEDS: LORazepam 1 MG TABLET PO (13:16)
[2023-04-06 18:00] VITALS: BP 129/83; PULSE 100; RESP 16; TEMP 36.8; O2SAT 96
[2023-04-06] MEDS: Divalproex Sodium ER 500 MG TAB.ER.24H PO (19:19)
[2023-04-06] MEDS: cloZAPine 25 MG TABLET 225 MG PO (19:19)
[2023-04-07] MEDS: Omeprazole 20 MG CAPSULE.DR PO (06:43)
[2023-04-07 08:00] VITALS: BP 115/69; PULSE 83; RESP 16; TEMP 36; O2SAT 96
[2023-04-07] MEDS: Empagliflozin 10 MG TABLET PO (09:33)
[2023-04-07] MEDS: Ferrous Sulfate 324 MG TABLET.DR PO (09:33)
[2023-04-07] MEDS: Folic Acid 1 MG TABLET PO (09:33)
[2023-04-07] MEDS: Atorvastatin Calcium 40 MG TABLET PO (09:33)
[2023-04-07] MEDS: HaloperidoL 5 MG TABLET PO ×2 (09:33→19:57)
[2023-04-07] MEDS: Magnesium Oxide 400 MG TABLET PO (09:33)
[2023-04-07] MEDS: Thiamine HCL 100 MG TABLET PO (09:33)
[2023-04-07] MEDS: metFORMIN HCl 1,000 MG TABLET 1000 MG PO (09:34)
[2023-04-07] MEDS: Acetaminophen 325 MG TABLET 650 MG PO ×2 (13:51→20:00)
[2023-04-07] MEDS: LORazepam 1 MG TABLET PO (13:51)
[2023-04-07] MEDS: OLANZapine 5 MG TABLET PO (13:51)
--- NOTE | 2023-04-07 15:11 | HO.PSYCHPN ---
Subjective Subjective Date of Service: 04/07/23 Reason For Visit: psychosis Subjective Notes: Conditional Voluntary Healthcare Proxy: No Guardianship: No Medical Problems Affecting Mental Status: No Interim History: Pt seen, discussed with the team. Per team, pt responding to internal stimuli at times. When we met, she is clear, grounded, focused with improved organization. She reflects upon stopping medicine and her rationale as not being solid and cause for hospitalization. She plans to live with her partner and child. She is looking forward to seeing her dog, her therapist and out patient prescriber. She states she feels ready to discharge and states if she has thoughts of stopping medication again, she will discuss this with her therapist and prescriber. Medication Compliance: Yes Side effects from medications: No Attending Groups: No Review of Systems Acute medical concerns: No Medical Review of Systems: unchanged Review of Systems Constitutional: Reports fatigue Endocrine: Reports fatigue Mental Status Exam Mental Status Exam Patient Appearance: Appropriate Patient Orientation: Person, Place, Time and Situation Level of Consciousness: Alert Patient Behavior: Talkative, Cooperative, Distractible and Good Eye Contact Mood Description: Appropriate Affect Description: Appropriate Patient Cognition Impaired: No Ability to Follow Directions: Good Speech Pattern: Spontaneous Speech and Soft-Spoken Memory Description: Episodic Impaired Hallucinations: None Delusions: Not Present Perceptual Disturbances: Depersonalization and Derealization Thought Process: Distracted Thought Content: positive for [place] and positive for Circumstantial Depressive Symptoms: Low Self Esteem Judgement: Good Diagnostics Vital Signs (24Hr): Vital Signs - 24 hr 04/06/23 18:00 04/07/23 08:00 Temperature 98.2 F 96.8 F Pulse Rate 100 83 Respiratory Rate 16 16 Blood Pressure 129/83 115/69 Pulse Oximetry 96 96 Oxygen Delivery Method Room Air Room Air BMI result Body Mass Index 26.6 Labs 03/15/23 17:16 04/05/23 06:56 Labs: Laboratory Results - last 48 hr 04/06/23 13:08 Absolute Neuts (auto) 7.4 Imaging Radiology Impressions: [facility] Impressions Head CT 03/15/23 15:32 IMPRESSION: No acute intracranial abnormalities. Medications Medications Current Medications Acetaminophen (Acetaminophen 325 Mg Tablet) 650 mg PO Q6H PRN PRN Reason: Headache/Pain Mild Scale (1-3) Last Admin: 04/07/23 13:51 Dose: 650 mg Al Hydroxide/Mg Hydroxide (Magnesium Hydrox/Alum Hydrox 30 Ml Oral.Susp) 30 ml PO Q6H PRN PRN Reason: Heartburn/Nausea Albuterol Sulfate (Albuterol Sulfate 90 Mcg 8 Gm Inhaler) 2 puff INHALE Q6H PRN PRN Reason: Wheezing Atorvastatin Calcium (Atorvastatin Calcium 40 Mg Tablet) 40 mg PO DAILY [facility] Last Admin: 04/07/23 09:33 Dose: 40 mg Benzocaine (Throat Lozenge, Medicated Lozenge) 1 lozenge MUCOUS MEM Q2H PRN PRN Reason: Sore Throat Last Admin: 04/06/23 11:28 Dose: 1 lozenge Clozapine (Clozapine 25 Mg Tablet) 225 mg PO BEDTIME [facility] Last Admin: 04/06/23 19:19 Dose: 225 mg Divalproex Sodium (Divalproex Sodium Er 500 Mg Tab.Er.24h) 500 mg PO BEDTIME [facility] Last Admin: 04/06/23 19:19 Dose: 500 mg Docusate Sodium (Docusate Sodium 100 Mg Capsule) 100 mg PO BID PRN PRN Reason: constipation Empagliflozin (Empagliflozin 10 Mg Tablet) 10 mg PO DAILY [facility] Last Admin: 04/07/23 09:33 Dose: 10 mg Ferrous Sulfate (Ferrous Sulfate 324 Mg Tablet.Dr) 324 mg PO DAILY [facility] Last Admin: 04/07/23 09:33 Dose: 324 mg Folic Acid (Folic Acid 1 Mg Tablet) 1 mg PO DAILY [facility] Last Admin: 04/07/23 09:33 Dose: 1 mg Haloperidol (Haloperidol 5 Mg Tablet) 5 mg PO BID [facility] Last Admin: 04/07/23 09:33 Dose: 5 mg Hydroxyzine HCl (Hydroxyzine Hcl 25 Mg Tablet) 25 mg PO Q6H PRN PRN Reason: Anxiety Last Admin: 04/05/23 19:04 Dose: 25 mg Lorazepam (Lorazepam 1 Mg Tablet) 1 mg PO TID PRN PRN Reason: Anxiety Last Admin: 04/07/23 13:51 Dose: 1 mg Magnesium Hydroxide (Milk Of Magnesia 30 Ml Oral.Susp) 30 ml PO DAILY PRN PRN Reason: Constipation Last Admin: 04/02/23 10:19 Dose: 30 ml Magnesium Oxide (Magnesium Oxide 400 Mg Tablet) 400 mg PO DAILY [facility] Last Admin: 04/07/23 09:33 Dose: 400 mg Metformin HCl (Metformin Hcl 1,000 Mg Tablet) 1,000 mg PO DAILY [facility] Last Admin: 04/07/23 09:34 Dose: 1,000 mg Nicotine (Nicotine 21 Mg Patch.Td24) 21 mg TRANSDERMA DAILY PRN PRN Reason: smoking cessation Last Admin: 03/28/23 08:51 Dose: 21 mg Nicotine Polacrilex (Nicotine Polacrilex 2 Mg Gum) 4 mg BUCCAL Q2H PRN PRN Reason: Nicotine Cravings Olanzapine (Olanzapine 5 Mg Tablet) 5 mg PO TID PRN PRN Reason: agitation Last Admin: 04/07/23 13:51 Dose: 5 mg Omeprazole (Omeprazole 20 Mg Capsule.Dr) 20 mg PO DAILY@0630 [facility] Last Admin: 04/07/23 06:43 Dose: 20 mg Thiamine HCl (Thiamine Hcl 100 Mg Tablet) 100 mg PO DAILY [facility] Last Admin: 04/07/23 09:33 Dose: 100 mg Trazodone HCl (Trazodone Hcl 50 Mg Tablet) 50 mg PO BEDTIME MRX1 PRN PRN Reason: Insomnia Last Admin: 04/05/23 19:04 Dose: 50 mg Allergies Allergies Allergy/AdvReac Type Severity Reaction Status Date / Time Sulfa (Sulfonamide Allergy Severe THROAT Verified 03/15/23 18:22 Antibiotics) SWELLING,RASH [Sulfa (Sulfonamides)] sulfamethoxazole Allergy Severe THROAT Verified 03/15/23 18:22 [From Bactrim] SWELLING,RASH trimethoprim [From Bactrim] Allergy Severe THROAT Verified 03/15/23 18:22 SWELLING,RASH morphine [MORPHINE] Allergy Unknown ANAPHYLAXIS Verified 03/15/23 18:22 Assessment & Plan Assessment & Plan (1) Schizoaffective disorder, bipolar type: Status: Acute Code(s): F25.0 - Schizoaffective disorder, bipolar type Plan 52 yo female, hx of schizoaffective disorder, bipolar type, PTSD. 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 Plan: Re-establish regime Collateral contact, treatment team, mom, Humaira Otero [phone] Diagnostics as needed Encourage milieu involvement. 03/19/23 Continue regime, team reports noncompliance MYSQL DBA ~4-6 days. Adjustments moving forward. 03/19/23 Continue regime and plan. Pt reporting some improvement in her mood today. 03/21/23 Patient disorganized, labile; visitor came and patient's for at him and would not be with him. Earlier patient open the freezer and stuck her head in it, standing there and needed to be redirected. Network Mgr approach patient while sitting on a chair, curled up in crying. She says I miss my children at 21 and 22.... I lost me to take care of my children... I am not ready for 53, for my birthday... She then said something about a cubby hole... Network Mgr tries to inquire to understand better but patient remains tearful and says she just needs to cry some more but will get better on her own. -continue current regimen for now; adjustments have been made and may need time to work 03/22/23 remains disorganized in speech and behavior -increased clozapine to 125 mg 03/23/23 Depakote ER 500 mg hs 03/24/23 Continue current regime 03/25/23 Increase Clozapine to 175 mg HS 03/26/23 Patient remains disorganized, fearful, with bizarre behaviors. Clozapine recently increased so will continue current treatment regimen 03/27/23 Increase Clozapine to 200 mg HS and hold-by history this dose has been effective per OP team. 03/28/2023: Will increase clozapine from 175 mg to 200 mg tonight. 03/29: just increased Clozapine to 200mg 03/28 03/30: Patient presents disorganized, responding to internal stimuli. She reports having auditory and visual hallucinations but did not elaborate. Poor hygiene, disheveled. trash all over room. denies SI/HI. Patients insight and judgment are poor. medication compliant. continue current tx plan. 03/31/23 Dysphoric with some improvement in her communication. Finds Ativan helpful, continues with poor modulation and dysregulation. Haldol 5 mg bid 04/01/23 Continue current regime and plan of care. 04/02/23 little easier with which to engage however remains Disorganized in speech and behavior -increase clozapine a 25 mg 04/03/23 Continue current regime and plan of care. 04/04/23 Continue current regime and plan of care. 04/05/23 Continue current regime and plan of care. 04/06/23 Tentative discharge planning for 04/07/23. 04/07/23 Discharge 04/08/23 Patient educated on: medication risk/benefits and therapeutic strategies Informed Consent: understands and further education needed Reason for continued inpatient stay Substantial Risk for: rapid decompensation Time Spent With Patient Time: Total time managing care of this patient today ____ minutes.
[2023-04-07 18:45] VITALS: BP 138/63; PULSE 83; RESP 16; TEMP 36.1; O2SAT 97
[2023-04-07] MEDS: cloZAPine 25 MG TABLET 225 MG PO (19:56)
[2023-04-07] MEDS: Divalproex Sodium ER 500 MG TAB.ER.24H PO (19:58)
[2023-04-07] MEDS: Throat Lozenge, Medicated LOZENGE 1 LOZENGE MUCOUS MEM (20:11)
[2023-04-08] MEDS: Acetaminophen 325 MG TABLET 650 MG PO ×2 (03:49→18:35)
[2023-04-08] MEDS: Omeprazole 20 MG CAPSULE.DR PO (05:51)
[2023-04-08 06:00] VITALS: BP 120/67; PULSE 74; RESP 18; O2SAT 94
[2023-04-08] MEDS: metFORMIN HCl 1,000 MG TABLET 1000 MG PO (08:12)
[2023-04-08] MEDS: Folic Acid 1 MG TABLET PO (08:12)
[2023-04-08] MEDS: Atorvastatin Calcium 40 MG TABLET PO (08:12)
[2023-04-08] MEDS: Ferrous Sulfate 324 MG TABLET.DR PO (08:12)
[2023-04-08] MEDS: Empagliflozin 10 MG TABLET PO (08:13)
[2023-04-08] MEDS: Magnesium Oxide 400 MG TABLET PO (08:13)
[2023-04-08] MEDS: HaloperidoL 5 MG TABLET PO ×2 (08:13→20:13)
[2023-04-08] MEDS: Thiamine HCL 100 MG TABLET PO (08:13)
[2023-04-08] MEDS: LORazepam 1 MG TABLET PO ×2 (13:48→20:13)
[2023-04-08] MEDS: Docusate Sodium 100 MG CAPSULE PO (13:50)
[2023-04-08] MEDS: hydrOXYzine HCL 25 MG TABLET PO ×2 (14:28→18:36)
[2023-04-08] MEDS: OLANZapine 5 MG TABLET PO (14:29)
[2023-04-08 16:42] VITALS: BP 129/71; PULSE 96; RESP 16; TEMP 36.1; O2SAT 100
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
[2023-04-08] MEDS: cloZAPine 25 MG TABLET 225 MG PO (20:13)
[2023-04-08] MEDS: Divalproex Sodium ER 500 MG TAB.ER.24H PO (20:14)
[2023-04-09] MEDS: Omeprazole 20 MG CAPSULE.DR PO (05:24)
[2023-04-09 07:00] VITALS: BMI 26.6
[2023-04-09 08:30] VITALS: BP 147/76; PULSE 82; RESP 16; TEMP 37.1; O2SAT 96
[2023-04-09] MEDS: metFORMIN HCl 1,000 MG TABLET 1000 MG PO (08:47)
[2023-04-09] MEDS: Folic Acid 1 MG TABLET PO (08:47)
[2023-04-09] MEDS: Atorvastatin Calcium 40 MG TABLET PO (08:47)
[2023-04-09] MEDS: Ferrous Sulfate 324 MG TABLET.DR PO (08:47)
[2023-04-09] MEDS: Magnesium Oxide 400 MG TABLET PO (08:47)
[2023-04-09] MEDS: HaloperidoL 5 MG TABLET PO ×2 (08:47→20:21)
[2023-04-09] MEDS: Empagliflozin 10 MG TABLET PO (08:47)
[2023-04-09] MEDS: Thiamine HCL 100 MG TABLET PO (08:47)
[2023-04-09] MEDS: LORazepam 1 MG TABLET PO ×3 (08:53→20:20)
[2023-04-09] MEDS: hydrOXYzine HCL 25 MG TABLET PO ×2 (08:53→16:00)
[2023-04-09] MEDS: Docusate Sodium 100 MG CAPSULE PO (13:32)
[2023-04-09] MEDS: OLANZapine 5 MG TABLET PO (13:32)
[2023-04-09 16:30] VITALS: BP 149/64; PULSE 97; RESP 16; TEMP 36.4; O2SAT 97
--- NOTE | 2023-04-09 19:45 | P.PNPSI_ITS ---
Subjective Subjective Date of Service: 04/09/23 Reason For Visit: psychosis Interim History: How about Thursday? Calmer presentation today, continues with some confusion, disorganization. Visable in milieu Team reports anxiety, giggling, feeling too happy. Medication Compliance: Yes Side effects from medications: No Attending Groups: No Review of Systems Acute medical concerns: No Medical Review of Systems: unchanged Review of Systems Review of Systems Yes all other systems are reviewed and are negative (she denies) Mental Status Exam Mental Status Exam Patient Appearance: Disheveled Patient Orientation: Person, Place and Situation Level of Consciousness: Alert Patient Behavior: Talkative, Distractible, Confused and Good Eye Contact Mood Description: Cheerful, Anxious and Labile Affect Description: Labile Patient Cognition Impaired: No Ability to Follow Directions: Fair Speech Pattern: Spontaneous Speech Memory Description: Episodic Impaired Hallucinations: None Delusions: Not Present Perceptual Disturbances: Depersonalization and Derealization Thought Process: Distracted Thought Content: positive for Flight of Ideas, positive for Circumstantial and positive for Loose Associations Depressive Symptoms: Diff. Making Decisions and Thoughts of /Suicide (denies) Judgement: Fair Diagnostics Vital Signs (24Hr): Vital Signs - 24 hr 04/09/23 08:30 04/09/23 16:30 Temperature 98.7 F 97.6 F Pulse Rate 82 97 Respiratory Rate 16 16 Blood Pressure 147/76 H 149/64 H Pulse Oximetry 96 97 Oxygen Delivery Method Room Air Room Air BMI result Body Mass Index 26.6 Labs 03/15/23 17:16 04/05/23 06:56 Imaging Radiology Impressions: ITS Impressions Head CT 03/15/23 15:32 IMPRESSION: No acute intracranial abnormalities. Medications Medications Current Medications Acetaminophen (Acetaminophen 325 Mg Tablet) 650 mg PO Q6H PRN PRN Reason: Headache/Pain Mild Scale (1-3) Last Admin: 04/08/23 18:35 Dose: 650 mg Al Hydroxide/Mg Hydroxide (Magnesium Hydrox/Alum Hydrox 30 Ml Oral.Susp) 30 ml PO Q6H PRN PRN Reason: Heartburn/Nausea Albuterol Sulfate (Albuterol Sulfate 90 Mcg 8 Gm Inhaler) 2 puff INHALE Q6H PRN PRN Reason: Wheezing Atorvastatin Calcium (Atorvastatin Calcium 40 Mg Tablet) 40 mg PO DAILY [facility] Last Admin: 04/09/23 08:47 Dose: 40 mg Benzocaine (Throat Lozenge, Medicated Lozenge) 1 lozenge MUCOUS MEM Q2H PRN PRN Reason: Sore Throat Last Admin: 04/07/23 20:11 Dose: 1 lozenge Clozapine (Clozapine 25 Mg Tablet) 225 mg PO BEDTIME [facility] Last Admin: 04/08/23 20:13 Dose: 225 mg Divalproex Sodium (Divalproex Sodium Er 500 Mg Tab.Er.24h) 500 mg PO BEDTIME [facility] Last Admin: 04/08/23 20:14 Dose: 500 mg Docusate Sodium (Docusate Sodium 100 Mg Capsule) 100 mg PO BID PRN PRN Reason: constipation Last Admin: 04/09/23 13:32 Dose: 100 mg Empagliflozin (Empagliflozin 10 Mg Tablet) 10 mg PO DAILY [facility] Last Admin: 04/09/23 08:47 Dose: 10 mg Ferrous Sulfate (Ferrous Sulfate 324 Mg Tablet.Dr) 324 mg PO DAILY [facility] Last Admin: 04/09/23 08:47 Dose: 324 mg Folic Acid (Folic Acid 1 Mg Tablet) 1 mg PO DAILY [facility] Last Admin: 04/09/23 08:47 Dose: 1 mg Haloperidol (Haloperidol 5 Mg Tablet) 5 mg PO BID [facility] Last Admin: 04/09/23 08:47 Dose: 5 mg Hydroxyzine HCl (Hydroxyzine Hcl 25 Mg Tablet) 25 mg PO Q6H PRN PRN Reason: Anxiety Last Admin: 04/09/23 16:00 Dose: 25 mg Lorazepam (Lorazepam 1 Mg Tablet) 1 mg PO TID PRN PRN Reason: Anxiety Last Admin: 04/09/23 13:31 Dose: 1 mg Magnesium Hydroxide (Milk Of Magnesia 30 Ml Oral.Susp) 30 ml PO DAILY PRN PRN Reason: Constipation Last Admin: 04/02/23 10:19 Dose: 30 ml Magnesium Oxide (Magnesium Oxide 400 Mg Tablet) 400 mg PO DAILY [facility] Last Admin: 04/09/23 08:47 Dose: 400 mg Metformin HCl (Metformin Hcl 1,000 Mg Tablet) 1,000 mg PO DAILY [facility] Last Admin: 04/09/23 08:47 Dose: 1,000 mg Nicotine (Nicotine 21 Mg Patch.Td24) 21 mg TRANSDERMA DAILY PRN PRN Reason: smoking cessation Last Admin: 03/28/23 08:51 Dose: 21 mg Nicotine Polacrilex (Nicotine Polacrilex 2 Mg Gum) 4 mg BUCCAL Q2H PRN PRN Reason: Nicotine Cravings Olanzapine (Olanzapine 5 Mg Tablet) 5 mg PO TID PRN PRN Reason: agitation Last Admin: 04/09/23 13:32 Dose: 5 mg Omeprazole (Omeprazole 20 Mg Capsule.Dr) 20 mg PO DAILY@0630 [facility] Last Admin: 04/09/23 05:24 Dose: 20 mg Thiamine HCl (Thiamine Hcl 100 Mg Tablet) 100 mg PO DAILY [facility] Last Admin: 04/09/23 08:47 Dose: 100 mg Trazodone HCl (Trazodone Hcl 50 Mg Tablet) 50 mg PO BEDTIME MRX1 PRN PRN Reason: Insomnia Last Admin: 04/05/23 19:04 Dose: 50 mg Allergies Allergies Allergy/AdvReac Type Severity Reaction Status Date / Time Sulfa (Sulfonamide Allergy Severe THROAT Verified 03/15/23 18:22 Antibiotics) SWELLING,RASH [Sulfa (Sulfonamides)] sulfamethoxazole Allergy Severe THROAT Verified 03/15/23 18:22 [From Bactrim] SWELLING,RASH trimethoprim [From Bactrim] Allergy Severe THROAT Verified 03/15/23 18:22 SWELLING,RASH morphine [MORPHINE] Allergy Unknown ANAPHYLAXIS Verified 03/15/23 18:22 Assessment & Plan Assessment & Plan (1) Schizoaffective disorder, bipolar type: Status: Acute Code(s): F25.0 - Schizoaffective disorder, bipolar type Plan 52 yo female, hx of schizoaffective disorder, bipolar type, PTSD. 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 Plan: Re-establish regime Collateral contact, treatment team, mom, Humaira Otero [phone] Diagnostics as needed Encourage milieu involvement. 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 Adjustments moving forward. 03/19/23 Continue regime and plan. Pt reporting some improvement in her mood today. 03/21/23 Patient disorganized, labile; visitor came and patient's for at him and would not be with him. Earlier patient open the freezer and stuck her head in it, standing there and needed to be redirected. Retail Commission Sales Associate approach patient while sitting on a chair, curled up in crying. She says I miss my children at 21 and 22.... I lost me to take care of my children... I am not ready for 53, for my birthday... She then said something about a cubby hole... Retail Commission Sales Associate tries to inquire to understand better but patient remains tearful and says she just needs to cry some more but will get better on her own. -continue current regimen for now; adjustments have been made and may need time to work 03/22/23 remains disorganized in speech and behavior -increased clozapine to 125 mg 03/23/23 Depakote ER 500 mg hs 03/24/23 Continue current regime 03/25/23 Increase Clozapine to 175 mg HS 03/26/23 Patient remains disorganized, fearful, with bizarre behaviors. Clozapine recently increased so will continue current treatment regimen 03/27/23 Increase Clozapine to 200 mg HS and hold-by history this dose has been effective per OP team. 03/28/2023: Will increase clozapine from 175 mg to 200 mg tonight. 03/29: just increased Clozapine to 200mg 03/28 03/30: Patient presents disorganized, responding to internal stimuli. She reports having auditory and visual hallucinations but did not elaborate. Poor hygiene, disheveled. trash all over room. denies SI/HI. Patients insight and judgment are poor. medication compliant. continue current tx plan. 03/31/23 Dysphoric with some improvement in her communication. Finds Ativan helpful, continues with poor modulation and dysregulation. Haldol 5 mg bid 04/01/23 Continue current regime and plan of care. 04/02/23 little easier with which to engage however remains Disorganized in speech and behavior -increase clozapine a 25 mg 04/03/23 Continue current regime and plan of care. 04/04/23 Continue current regime and plan of care. 04/05/23 Continue current regime and plan of care. 04/06/23 Tentative discharge planning for 04/07/23. 04/07/23 Discharge 04/08/23 04/09/23 On 04/10 Increase Haldol to 7.5 mg bid Increase Depakote ER to 1000 mg HS Informed Consent: further education needed Reason for continued inpatient stay Substantial Risk for: rapid decompensation Time Spent With Patient Time: Total time managing care of this patient today ____ minutes.
[2023-04-09] MEDS: Acetaminophen 325 MG TABLET 650 MG PO (20:20)
[2023-04-09] MEDS: Divalproex Sodium ER 500 MG TAB.ER.24H PO (20:21)
[2023-04-09] MEDS: cloZAPine 25 MG TABLET 225 MG PO (20:21)
[2023-04-10] MEDS: Omeprazole 20 MG CAPSULE.DR PO (05:45)
[2023-04-10 07:50] VITALS: BP 149/67; PULSE 81; RESP 16; TEMP 36.4; O2SAT 95
[2023-04-10] MEDS: Empagliflozin 10 MG TABLET PO (08:20)
[2023-04-10] MEDS: metFORMIN HCl 1,000 MG TABLET 1000 MG PO (08:20)
[2023-04-10] MEDS: Magnesium Oxide 400 MG TABLET PO (08:20)
[2023-04-10] MEDS: HaloperidoL 5 MG TABLET 7.5 MG PO ×2 (08:20→21:45)
[2023-04-10] MEDS: Acetaminophen 325 MG TABLET 650 MG PO (08:20)
[2023-04-10] MEDS: hydrOXYzine HCL 25 MG TABLET PO ×2 (08:20→18:03)
[2023-04-10] MEDS: Ferrous Sulfate 324 MG TABLET.DR PO (08:20)
[2023-04-10] MEDS: Thiamine HCL 100 MG TABLET PO (08:20)
[2023-04-10] MEDS: Atorvastatin Calcium 40 MG TABLET PO (08:21)
[2023-04-10] MEDS: Folic Acid 1 MG TABLET PO (08:21)
[2023-04-10] MEDS: Magnesium Hydrox/Alum Hydrox 30 ML ORAL.SUSP PO (08:23)
--- NOTE | 2023-04-10 09:11 | P.PNPSI_ITS ---
Subjective Subjective Date of Service: 04/10/23 Reason For Visit: psychosis Interim History: Met with patient; discussed with team; reviewed notes Patient pleasant, friendly on approach. Still with some speech and disorganized behavior , saying that me keep me safe... Me safety me first. Patient disheveled, collecting condom it is and caring them in her skirt. Says clozapine helps Mental Status Exam Mental Status Exam Patient Appearance: Disheveled Patient Orientation: Person, Place and Situation Level of Consciousness: Alert Patient Behavior: Talkative, Distractible, Confused and Good Eye Contact Mood Description: Cheerful, Anxious and Labile Affect Description: Labile Patient Cognition Impaired: No Ability to Follow Directions: Fair Speech Pattern: Spontaneous Speech Memory Description: Episodic Impaired Hallucinations: None Delusions: Not Present Perceptual Disturbances: Depersonalization and Derealization Thought Process: Distracted Thought Content: positive for Flight of Ideas, positive for Circumstantial and positive for Loose Associations Depressive Symptoms: Diff. Making Decisions and Thoughts of /Suicide (denies) Judgement: Fair Diagnostics Vital Signs (24Hr): Vital Signs - 24 hr 04/09/23 16:30 04/10/23 07:50 Temperature 97.6 F 97.6 F Pulse Rate 97 81 Respiratory Rate 16 16 Blood Pressure 149/64 H 149/67 H Pulse Oximetry 97 95 Oxygen Delivery Method Room Air Room Air BMI result Body Mass Index 26.6 Labs 03/15/23 17:16 04/05/23 06:56 Imaging Radiology Impressions: ITS Impressions Head CT 03/15/23 15:32 IMPRESSION: No acute intracranial abnormalities. Medications Medications Current Medications Acetaminophen (Acetaminophen 325 Mg Tablet) 650 mg PO Q6H PRN PRN Reason: Headache/Pain Mild Scale (1-3) Last Admin: 04/10/23 08:20 Dose: 650 mg Al Hydroxide/Mg Hydroxide (Magnesium Hydrox/Alum Hydrox 30 Ml Oral.Susp) 30 ml PO Q6H PRN PRN Reason: Heartburn/Nausea Last Admin: 04/10/23 08:23 Dose: 30 ml Albuterol Sulfate (Albuterol Sulfate 90 Mcg 8 Gm Inhaler) 2 puff INHALE Q6H PRN PRN Reason: Wheezing Atorvastatin Calcium (Atorvastatin Calcium 40 Mg Tablet) 40 mg PO DAILY [facility] Last Admin: 04/10/23 08:21 Dose: 40 mg Benzocaine (Throat Lozenge, Medicated Lozenge) 1 lozenge MUCOUS MEM Q2H PRN PRN Reason: Sore Throat Last Admin: 04/07/23 20:11 Dose: 1 lozenge Clozapine (Clozapine 25 Mg Tablet) 225 mg PO BEDTIME [facility] Last Admin: 04/09/23 20:21 Dose: 225 mg Divalproex Sodium (Divalproex Sodium Er 500 Mg Tab.Er.24h) 1,000 mg PO BEDTIME [facility] Docusate Sodium (Docusate Sodium 100 Mg Capsule) 100 mg PO BID PRN PRN Reason: constipation Last Admin: 04/09/23 13:32 Dose: 100 mg Empagliflozin (Empagliflozin 10 Mg Tablet) 10 mg PO DAILY [facility] Last Admin: 04/10/23 08:20 Dose: 10 mg Ferrous Sulfate (Ferrous Sulfate 324 Mg Tablet.Dr) 324 mg PO DAILY [facility] Last Admin: 04/10/23 08:20 Dose: 324 mg Folic Acid (Folic Acid 1 Mg Tablet) 1 mg PO DAILY [facility] Last Admin: 04/10/23 08:21 Dose: 1 mg Haloperidol (Haloperidol 5 Mg Tablet) 7.5 mg PO BID [facility] Last Admin: 04/10/23 08:20 Dose: 7.5 mg Hydroxyzine HCl (Hydroxyzine Hcl 25 Mg Tablet) 25 mg PO Q6H PRN PRN Reason: Anxiety Last Admin: 04/10/23 08:20 Dose: 25 mg Lorazepam (Lorazepam 1 Mg Tablet) 1 mg PO TID PRN PRN Reason: Anxiety Last Admin: 04/09/23 20:20 Dose: 1 mg Magnesium Hydroxide (Milk Of Magnesia 30 Ml Oral.Susp) 30 ml PO DAILY PRN PRN Reason: Constipation Last Admin: 04/02/23 10:19 Dose: 30 ml Magnesium Oxide (Magnesium Oxide 400 Mg Tablet) 400 mg PO DAILY [facility] Last Admin: 04/10/23 08:20 Dose: 400 mg Metformin HCl (Metformin Hcl 1,000 Mg Tablet) 1,000 mg PO DAILY [facility] Last Admin: 04/10/23 08:20 Dose: 1,000 mg Nicotine (Nicotine 21 Mg Patch.Td24) 21 mg TRANSDERMA DAILY PRN PRN Reason: smoking cessation Last Admin: 03/28/23 08:51 Dose: 21 mg Nicotine Polacrilex (Nicotine Polacrilex 2 Mg Gum) 4 mg BUCCAL Q2H PRN PRN Reason: Nicotine Cravings Olanzapine (Olanzapine 5 Mg Tablet) 5 mg PO TID PRN PRN Reason: agitation Last Admin: 04/09/23 13:32 Dose: 5 mg Omeprazole (Omeprazole 20 Mg Capsule.) 20 mg PO DAILY@0630 [facility] Last Admin: 04/10/23 05:45 Dose: 20 mg Thiamine HCl (Thiamine Hcl 100 Mg Tablet) 100 mg PO DAILY [facility] Last Admin: 04/10/23 08:20 Dose: 100 mg Trazodone HCl (Trazodone Hcl 50 Mg Tablet) 50 mg PO BEDTIME MRX1 PRN PRN Reason: Insomnia Last Admin: 04/05/23 19:04 Dose: 50 mg Allergies Allergies Allergy/AdvReac Type Severity Reaction Status Date / Time Sulfa (Sulfonamide Allergy Severe THROAT Verified 03/15/23 18:22 Antibiotics) SWELLING,RASH [Sulfa (Sulfonamides)] sulfamethoxazole Allergy Severe THROAT Verified 03/15/23 18:22 [From Bactrim] SWELLING,RASH trimethoprim [From Bactrim] Allergy Severe THROAT Verified 03/15/23 18:22 SWELLING,RASH morphine [MORPHINE] Allergy Unknown ANAPHYLAXIS Verified 03/15/23 18:22 Assessment & Plan Assessment & Plan (1) Schizoaffective disorder, bipolar type: Status: Acute Code(s): F25.0 - Schizoaffective disorder, bipolar type Plan 52 yo female, hx of schizoaffective disorder, bipolar type, PTSD. 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 Plan: Re-establish regime Collateral contact, treatment team, mom, Humaira Otero [phone] Diagnostics as needed Encourage milieu involvement. 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 Adjustments moving forward. 03/19/23 Continue regime and plan. Pt reporting some improvement in her mood today. 03/21/23 Patient disorganized, labile; visitor came and patient's for at him and would not be with him. Earlier patient open the freezer and stuck her head in it, standing there and needed to be redirected. Trim Mounter approach patient while sitting on a chair, curled up in crying. She says I miss my children at 21 and 22.... I lost me to take care of my children... I am not ready for 53, for my birthday... She then said something about a cubby hole... Trim Mounter tries to inquire to understand better but patient remains tearful and says she just needs to cry some more but will get better on her own. -continue current regimen for now; adjustments have been made and may need time to work 03/22/23 remains disorganized in speech and behavior -increased clozapine to 125 mg 03/23/23 Depakote ER 500 mg hs 03/24/23 Continue current regime 03/25/23 Increase Clozapine to 175 mg HS 03/26/23 Patient remains disorganized, fearful, with bizarre behaviors. Clozapine recently increased so will continue current treatment regimen 03/27/23 Increase Clozapine to 200 mg HS and hold-by history this dose has been effective per OP team. 03/28/2023: Will increase clozapine from 175 mg to 200 mg tonight. 03/29: just increased Clozapine to 200mg 03/28 03/30: Patient presents disorganized, responding to internal stimuli. She reports having auditory and visual hallucinations but did not elaborate. Poor hygiene, disheveled. trash all over room. denies SI/HI. Patients insight and judgment are poor. medication compliant. continue current tx plan. 03/31/23 Dysphoric with some improvement in her communication. Finds Ativan helpful, continues with poor modulation and dysregulation. Haldol 5 mg bid 04/01/23 Continue current regime and plan of care. 04/02/23 little easier with which to engage however remains Disorganized in speech and behavior -increase clozapine a 25 mg 04/03/23 Continue current regime and plan of care. 04/04/23 Continue current regime and plan of care. 04/05/23 Continue current regime and plan of care. 04/06/23 Tentative discharge planning for 04/07/23. 04/07/23 Discharge 04/08/23 04/09/23 On 04/10 Increased Haldol to 7.5 mg bid Increased Depakote ER to 1000 mg HS Patient educated on: diagnosis and medication risk/benefits Informed Consent: understands and further education needed Reason for continued inpatient stay Substantial Risk for: inability to function Time Spent With Patient Time: Total time managing care of this patient today ____ minutes.
[2023-04-10] MEDS: LORazepam 1 MG TABLET PO ×2 (13:24→21:44)
[2023-04-10] MEDS: OLANZapine 5 MG TABLET PO ×2 (13:25→21:45)
[2023-04-10 17:15] VITALS: BP 123/68; PULSE 105; RESP 16; TEMP 36.4; O2SAT 96
[2023-04-10] MEDS: Divalproex Sodium ER 500 MG TAB.ER.24H 1000 MG PO (21:45)
[2023-04-10] MEDS: cloZAPine 25 MG TABLET 225 MG PO (21:46)
[2023-04-11] MEDS: Omeprazole 20 MG CAPSULE.DR PO (05:34)
[2023-04-11] MEDS: HaloperidoL 5 MG TABLET 7.5 MG PO ×2 (08:52→20:23)
[2023-04-11] MEDS: Thiamine HCL 100 MG TABLET PO (08:53)
[2023-04-11] MEDS: Atorvastatin Calcium 40 MG TABLET PO (08:53)
[2023-04-11] MEDS: Magnesium Oxide 400 MG TABLET PO (08:53)
[2023-04-11] MEDS: metFORMIN HCl 1,000 MG TABLET 1000 MG PO (08:53)
[2023-04-11] MEDS: Empagliflozin 10 MG TABLET PO (08:53)
[2023-04-11] MEDS: Folic Acid 1 MG TABLET PO (08:53)
[2023-04-11] MEDS: Ferrous Sulfate 324 MG TABLET.DR PO (08:53)
[2023-04-11 09:03] VITALS: BP 115/60; PULSE 89; RESP 16; TEMP 36.4; O2SAT 97
[2023-04-11] MEDS: Docusate Sodium 100 MG CAPSULE PO (10:16)
[2023-04-11] MEDS: Milk of Magnesia 30 ML ORAL.SUSP PO (10:16)
--- NOTE | 2023-04-11 11:15 | P.PNPSI_ITS ---
Subjective Subjective Date of Service: 04/11/23 Reason For Visit: psychosis Subjective Notes: Conditional Voluntary Interim History: Patient was seen and discussed in rounds today. Records and plans were reviewed. She continues to be guarded visible and cooperative. Historically she has had slow recoveries. She does have some response to internal stimuli- observed. No complaints or side effects. Eating and sleeping adequately. No SI. No changes were made today. No complaints of side effects to increased meds. Review of Systems Review of Systems Yes all other systems are reviewed and are negative Mental Status Exam Mental Status Exam Narrative: In today's visit she is alert, pleasant and interactive. Normal speech. Moderate eye contact. Affect is appropriate and flat. No overt signs of psychosis but observed to have response to internal stimuli. Denies any hallucinations. No SI. Judgment is intact Diagnostics Vital Signs (24Hr): Vital Signs - 24 hr 04/10/23 17:15 Temperature 97.5 F Pulse Rate 105 H Respiratory Rate 16 Blood Pressure 123/68 Pulse Oximetry 96 Oxygen Delivery Method Room Air BMI result Body Mass Index 26.6 Labs 03/15/23 17:16 04/05/23 06:56 Imaging Radiology Impressions: ITS Impressions Head CT 03/15/23 15:32 IMPRESSION: No acute intracranial abnormalities. Medications Medications Current Medications Acetaminophen (Acetaminophen 325 Mg Tablet) 650 mg PO Q6H PRN PRN Reason: Headache/Pain Mild Scale (1-3) Last Admin: 04/10/23 08:20 Dose: 650 mg Al Hydroxide/Mg Hydroxide (Magnesium Hydrox/Alum Hydrox 30 Ml Oral.Susp) 30 ml PO Q6H PRN PRN Reason: Heartburn/Nausea Last Admin: 04/10/23 08:23 Dose: 30 ml Albuterol Sulfate (Albuterol Sulfate 90 Mcg 8 Gm Inhaler) 2 puff INHALE Q6H PRN PRN Reason: Wheezing Atorvastatin Calcium (Atorvastatin Calcium 40 Mg Tablet) 40 mg PO DAILY [facility] Last Admin: 04/11/23 08:53 Dose: 40 mg Benzocaine (Throat Lozenge, Medicated Lozenge) 1 lozenge MUCOUS MEM Q2H PRN PRN Reason: Sore Throat Last Admin: 04/07/23 20:11 Dose: 1 lozenge Clozapine (Clozapine 25 Mg Tablet) 225 mg PO BEDTIME [facility] Last Admin: 04/10/23 21:46 Dose: 225 mg Divalproex Sodium (Divalproex Sodium Er 500 Mg Tab.Er.24h) 1,000 mg PO BEDTIME [facility] Last Admin: 04/10/23 21:45 Dose: 1,000 mg Docusate Sodium (Docusate Sodium 100 Mg Capsule) 100 mg PO BID PRN PRN Reason: constipation Last Admin: 04/11/23 10:16 Dose: 100 mg Empagliflozin (Empagliflozin 10 Mg Tablet) 10 mg PO DAILY [facility] Last Admin: 04/11/23 08:53 Dose: 10 mg Ferrous Sulfate (Ferrous Sulfate 324 Mg Tablet.) 324 mg PO DAILY [facility] Last Admin: 04/11/23 08:53 Dose: 324 mg Folic Acid (Folic Acid 1 Mg Tablet) 1 mg PO DAILY [facility] Last Admin: 04/11/23 08:53 Dose: 1 mg Haloperidol (Haloperidol 5 Mg Tablet) 7.5 mg PO BID [facility] Last Admin: 04/11/23 08:52 Dose: 7.5 mg Hydroxyzine HCl (Hydroxyzine Hcl 25 Mg Tablet) 25 mg PO Q6H PRN PRN Reason: Anxiety Last Admin: 04/10/23 18:03 Dose: 25 mg Lorazepam (Lorazepam 1 Mg Tablet) 1 mg PO TID PRN PRN Reason: Anxiety Last Admin: 04/10/23 21:44 Dose: 1 mg Magnesium Hydroxide (Milk Of Magnesia 30 Ml Oral.Susp) 30 ml PO DAILY PRN PRN Reason: Constipation Last Admin: 04/11/23 10:16 Dose: 30 ml Magnesium Oxide (Magnesium Oxide 400 Mg Tablet) 400 mg PO DAILY [facility] Last Admin: 04/11/23 08:53 Dose: 400 mg Metformin HCl (Metformin Hcl 1,000 Mg Tablet) 1,000 mg PO DAILY [facility] Last Admin: 04/11/23 08:53 Dose: 1,000 mg Nicotine (Nicotine 21 Mg Patch.Td24) 21 mg TRANSDERMA DAILY PRN PRN Reason: smoking cessation Last Admin: 03/28/23 08:51 Dose: 21 mg Nicotine Polacrilex (Nicotine Polacrilex 2 Mg Gum) 4 mg BUCCAL Q2H PRN PRN Reason: Nicotine Cravings Olanzapine (Olanzapine 5 Mg Tablet) 5 mg PO TID PRN PRN Reason: agitation Last Admin: 04/10/23 21:45 Dose: 5 mg Omeprazole (Omeprazole 20 Mg Capsule.) 20 mg PO DAILY@0630 [facility] Last Admin: 12/09/23 05:34 Dose: 20 mg Thiamine HCl (Thiamine Hcl 100 Mg Tablet) 100 mg PO DAILY [facility] Last Admin: 04/11/23 08:53 Dose: 100 mg Trazodone HCl (Trazodone Hcl 50 Mg Tablet) 50 mg PO BEDTIME MRX1 PRN PRN Reason: Insomnia Last Admin: 04/05/23 19:04 Dose: 50 mg Allergies Allergies Allergy/AdvReac Type Severity Reaction Status Date / Time Sulfa (Sulfonamide Allergy Severe THROAT Verified 03/15/23 18:22 Antibiotics) SWELLING,RASH [Sulfa (Sulfonamides)] sulfamethoxazole Allergy Severe THROAT Verified 03/15/23 18:22 [From Bactrim] SWELLING,RASH trimethoprim [From Bactrim] Allergy Severe THROAT Verified 03/15/23 18:22 SWELLING,RASH morphine [MORPHINE] Allergy Unknown ANAPHYLAXIS Verified 03/15/23 18:22 Assessment & Plan Assessment & Plan (1) Schizoaffective disorder, bipolar type: Status: Acute Code(s): F25.0 - Schizoaffective disorder, bipolar type Plan 52 yo female, hx of schizoaffective disorder, bipolar type, PTSD. 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 Plan: Re-establish regime Collateral contact, treatment team, mom, Humaira Otero [phone] Diagnostics as needed Encourage milieu involvement. 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 Adjustments moving forward. 03/19/23 Continue regime and plan. Pt reporting some improvement in her mood today. 03/21/23 Patient disorganized, labile; visitor came and patient's for at him and would not be with him. Earlier patient open the freezer and stuck her head in it, standing there and needed to be redirected. Paper Bag Inspector approach patient while sitting on a chair, curled up in crying. She says I miss my children at 21 and 22.... I lost me to take care of my children... I am not ready for 53, for my birthday... She then said something about a cubby hole... Paper Bag Inspector tries to inquire to understand better but patient remains tearful and says she just needs to cry some more but will get better on her own. -continue current regimen for now; adjustments have been made and may need time to work 03/22/23 remains disorganized in speech and behavior -increased clozapine to 125 mg 03/23/23 Depakote ER 500 mg hs 03/24/23 Continue current regime 03/25/23 Increase Clozapine to 175 mg HS 03/26/23 Patient remains disorganized, fearful, with bizarre behaviors. Clozapine recently increased so will continue current treatment regimen 03/27/23 Increase Clozapine to 200 mg HS and hold-by history this dose has been effective per OP team. 03/28/2023: Will increase clozapine from 175 mg to 200 mg tonight. 03/29: just increased Clozapine to 200mg 03/28 03/30: Patient presents disorganized, responding to internal stimuli. She reports having auditory and visual hallucinations but did not elaborate. Poor hygiene, disheveled. trash all over room. denies SI/HI. Patients insight and judgment are poor. medication compliant. continue current tx plan. 03/31/23 Dysphoric with some improvement in her communication. Finds Ativan helpful, continues with poor modulation and dysregulation. Haldol 5 mg bid 04/01/23 Continue current regime and plan of care. 04/02/23 little easier with which to engage however remains Disorganized in speech and behavior -increase clozapine a 25 mg 04/03/23 Continue current regime and plan of care. 04/04/23 Continue current regime and plan of care. 04/05/23 Continue current regime and plan of care. 04/06/23 Tentative discharge planning for 04/07/23. 04/07/23 Discharge 04/08/23 04/09/23 On 04/10 Increased Haldol to 7.5 mg bid Increased Depakote ER to 1000 mg HS 04/11: Continue current regimen and plans. Reason for continued inpatient stay Substantial Risk for: med/psych decompensation Time Spent With Patient Time: Total time managing care of this patient today ____ minutes.
[2023-04-11] MEDS: Acetaminophen 325 MG TABLET 650 MG PO (12:03)
[2023-04-11] MEDS: LORazepam 1 MG TABLET PO ×2 (12:04→18:51)
[2023-04-11 18:00] VITALS: PULSE 90; RESP 16; O2SAT 96
[2023-04-11] MEDS: OLANZapine 5 MG TABLET PO (18:51)
[2023-04-11] MEDS: cloZAPine 25 MG TABLET 225 MG PO (20:23)
[2023-04-11] MEDS: Divalproex Sodium ER 500 MG TAB.ER.24H 1000 MG PO (20:25)
[2023-04-12] MEDS: Omeprazole 20 MG CAPSULE.DR PO (05:44)
[2023-04-12 08:16] LABS: Creatinine Clr Calc Pharmacy 80.1; Estimated Glomerular Filt Rate > 60
[2023-04-12 08:20] VITALS: BP 123/65; PULSE 72; RESP 16; TEMP 36.4; O2SAT 98
[2023-04-12] MEDS: Ferrous Sulfate 324 MG TABLET.DR PO (08:30)
[2023-04-12] MEDS: HaloperidoL 5 MG TABLET 7.5 MG PO ×2 (08:30→20:38)
[2023-04-12] MEDS: Thiamine HCL 100 MG TABLET PO (08:30)
[2023-04-12] MEDS: Atorvastatin Calcium 40 MG TABLET PO (08:30)
[2023-04-12] MEDS: metFORMIN HCl 1,000 MG TABLET 1000 MG PO (08:30)
[2023-04-12] MEDS: Magnesium Oxide 400 MG TABLET PO (08:30)
[2023-04-12] MEDS: Empagliflozin 10 MG TABLET PO (08:30)
[2023-04-12] MEDS: Folic Acid 1 MG TABLET PO (08:31)
[2023-04-12] MEDS: Acetaminophen 325 MG TABLET 650 MG PO ×2 (09:40→17:28)
[2023-04-12] MEDS: Milk of Magnesia 30 ML ORAL.SUSP PO (09:40)
[2023-04-12] MEDS: Docusate Sodium 100 MG CAPSULE PO (09:41)
--- NOTE | 2023-04-12 10:42 | HO.PSYCHPN ---
Subjective Subjective Date of Service: 04/12/23 Reason For Visit: psychosis Subjective Notes: Conditional Voluntary Interim History: Patient was seen and discussed in rounds today. Records and plans were reviewed. She is doing a little better and finally took a shower. She continues to be internally preoccupied. Eating and sleeping adequately. She is medication compliant. She denies any side effects. No SI. No changes were made today Review of Systems Review of Systems Yes all other systems are reviewed and are negative Mental Status Exam Mental Status Exam Narrative: In today's visit she is alert, pleasant and interactive. Normal speech. Moderate eye contact. Affect is appropriate and flat. No overt signs of psychosis but observed to have response to internal stimuli. Denies any hallucinations. No SI. Judgment is intact Diagnostics Vital Signs (24Hr): Vital Signs - 24 hr 04/11/23 18:00 04/12/23 08:20 Temperature 97.5 F Pulse Rate 90 72 Respiratory Rate 16 16 Blood Pressure 123/65 Pulse Oximetry 96 98 Oxygen Delivery Method Room Air Room Air BMI result Body Mass Index 26.6 Labs 03/15/23 17:16 04/12/23 07:55 Labs: Laboratory Results - last 48 hr 04/12/23 07:55 Hold Purple Top SEE NOTE Creatinine 0.84 Estim Creat Clear Calc 80.1 Estimated GFR > 60 Imaging Radiology Impressions: ITS Impressions Head CT 03/15/23 15:32 IMPRESSION: No acute intracranial abnormalities. Medications Medications Current Medications Acetaminophen (Acetaminophen 325 Mg Tablet) 650 mg PO Q6H PRN PRN Reason: Headache/Pain Mild Scale (1-3) Last Admin: 04/12/23 09:40 Dose: 650 mg Al Hydroxide/Mg Hydroxide (Magnesium Hydrox/Alum Hydrox 30 Ml Oral.Susp) 30 ml PO Q6H PRN PRN Reason: Heartburn/Nausea Last Admin: 04/10/23 08:23 Dose: 30 ml Albuterol Sulfate (Albuterol Sulfate 90 Mcg 8 Gm Inhaler) 2 puff INHALE Q6H PRN PRN Reason: Wheezing Atorvastatin Calcium (Atorvastatin Calcium 40 Mg Tablet) 40 mg PO DAILY [facility] Last Admin: 04/12/23 08:30 Dose: 40 mg Benzocaine (Throat Lozenge, Medicated Lozenge) 1 lozenge MUCOUS MEM Q2H PRN PRN Reason: Sore Throat Last Admin: 04/07/23 20:11 Dose: 1 lozenge Clozapine (Clozapine 25 Mg Tablet) 225 mg PO BEDTIME [facility] Last Admin: 04/11/23 20:23 Dose: 225 mg Divalproex Sodium (Divalproex Sodium Er 500 Mg Tab.Er.24h) 1,000 mg PO BEDTIME [facility] Last Admin: 04/11/23 20:25 Dose: 1,000 mg Docusate Sodium (Docusate Sodium 100 Mg Capsule) 100 mg PO BID PRN PRN Reason: constipation Last Admin: 04/12/23 09:41 Dose: 100 mg Empagliflozin (Empagliflozin 10 Mg Tablet) 10 mg PO DAILY [facility] Last Admin: 04/12/23 08:30 Dose: 10 mg Ferrous Sulfate (Ferrous Sulfate 324 Mg Tablet.Dr) 324 mg PO DAILY [facility] Last Admin: 04/12/23 08:30 Dose: 324 mg Folic Acid (Folic Acid 1 Mg Tablet) 1 mg PO DAILY [facility] Last Admin: 04/12/23 08:31 Dose: 1 mg Haloperidol (Haloperidol 5 Mg Tablet) 7.5 mg PO BID [facility] Last Admin: 04/12/23 08:30 Dose: 7.5 mg Hydroxyzine HCl (Hydroxyzine Hcl 25 Mg Tablet) 25 mg PO Q6H PRN PRN Reason: Anxiety Last Admin: 04/10/23 18:03 Dose: 25 mg Lorazepam (Lorazepam 1 Mg Tablet) 1 mg PO TID PRN PRN Reason: Anxiety Last Admin: 04/11/23 18:51 Dose: 1 mg Magnesium Hydroxide (Milk Of Magnesia 30 Ml Oral.Susp) 30 ml PO DAILY PRN PRN Reason: Constipation Last Admin: 04/12/23 09:40 Dose: 30 ml Magnesium Oxide (Magnesium Oxide 400 Mg Tablet) 400 mg PO DAILY [facility] Last Admin: 04/12/23 08:30 Dose: 400 mg Metformin HCl (Metformin Hcl 1,000 Mg Tablet) 1,000 mg PO DAILY [facility] Last Admin: 04/12/23 08:30 Dose: 1,000 mg Nicotine (Nicotine 21 Mg Patch.Td24) 21 mg TRANSDERMA DAILY PRN PRN Reason: smoking cessation Last Admin: 03/28/23 08:51 Dose: 21 mg Nicotine Polacrilex (Nicotine Polacrilex 2 Mg Gum) 4 mg BUCCAL Q2H PRN PRN Reason: Nicotine Cravings Olanzapine (Olanzapine 5 Mg Tablet) 5 mg PO TID PRN PRN Reason: agitation Last Admin: 04/11/23 18:51 Dose: 5 mg Omeprazole (Omeprazole 20 Mg Capsule.) 20 mg PO DAILY@0630 [facility] Last Admin: 04/12/23 05:44 Dose: 20 mg Thiamine HCl (Thiamine Hcl 100 Mg Tablet) 100 mg PO DAILY [facility] Last Admin: 04/12/23 08:30 Dose: 100 mg Trazodone HCl (Trazodone Hcl 50 Mg Tablet) 50 mg PO BEDTIME MRX1 PRN PRN Reason: Insomnia Last Admin: 04/05/23 19:04 Dose: 50 mg Allergies Allergies Allergy/AdvReac Type Severity Reaction Status Date / Time Sulfa (Sulfonamide Allergy Severe THROAT Verified 03/15/23 18:22 Antibiotics) SWELLING,RASH [Sulfa (Sulfonamides)] sulfamethoxazole Allergy Severe THROAT Verified 03/15/23 18:22 [From Bactrim] SWELLING,RASH trimethoprim [From Bactrim] Allergy Severe THROAT Verified 03/15/23 18:22 SWELLING,RASH morphine [MORPHINE] Allergy Unknown ANAPHYLAXIS Verified 03/15/23 18:22 Assessment & Plan Assessment & Plan (1) Schizoaffective disorder, bipolar type: Status: Acute Code(s): F25.0 - Schizoaffective disorder, bipolar type Plan 52 yo female, hx of schizoaffective disorder, bipolar type, PTSD. 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 Adjustments moving forward. 03/19/23 Continue regime and plan. Pt reporting some improvement in her mood today. 03/21/23 Patient disorganized, labile; visitor came and patient's for at him and would not be with him. Earlier patient open the freezer and stuck her head in it, standing there and needed to be redirected. Help Desk Technician approach patient while sitting on a chair, curled up in crying. She says I miss my children at 21 and 22.... I lost me to take care of my children... I am not ready for 53, for my birthday... She then said something about a cubby hole... Help Desk Technician tries to inquire to understand better but patient remains tearful and says she just needs to cry some more but will get better on her own. -continue current regimen for now; adjustments have been made and may need time to work 03/22/23 remains disorganized in speech and behavior -increased clozapine to 125 mg 03/23/23 Depakote ER 500 mg hs 03/24/23 Continue current regime 03/25/23 Increase Clozapine to 175 mg HS 03/26/23 Patient remains disorganized, fearful, with bizarre behaviors. Clozapine recently increased so will continue current treatment regimen 03/27/23 Increase Clozapine to 200 mg HS and hold-by history this dose has been effective per OP team. 03/28/2023: Will increase clozapine from 175 mg to 200 mg tonight. 03/29: just increased Clozapine to 200mg 03/28 03/30: Patient presents disorganized, responding to internal stimuli. She reports having auditory and visual hallucinations but did not elaborate. Poor hygiene, disheveled. trash all over room. denies SI/HI. Patients insight and judgment are poor. medication compliant. continue current tx plan. 03/31/23 Dysphoric with some improvement in her communication. Finds Ativan helpful, continues with poor modulation and dysregulation. Haldol 5 mg bid 04/01/23 Continue current regime and plan of care. 04/02/23 little easier with which to engage however remains Disorganized in speech and behavior -increase clozapine a 25 mg 04/03/23 Continue current regime and plan of care. 04/04/23 Continue current regime and plan of care. 04/05/23 Continue current regime and plan of care. 04/06/23 Tentative discharge planning for 04/07/23. 04/07/23 Discharge 04/08/23 04/09/23 On 04/10 Increased Haldol to 7.5 mg bid Increased Depakote ER to 1000 mg HS 04/11: Continue current regimen and plans. 04/12:Continue current regimen and plans Informed Consent: understands, does not understand and further education needed Reason for continued inpatient stay Substantial Risk for: med/psych decompensation Time Spent With Patient Time: Total time managing care of this patient today ____ minutes.
[2023-04-12] MEDS: LORazepam 1 MG TABLET PO (14:19)
[2023-04-12] MEDS: hydrOXYzine HCL 25 MG TABLET PO (14:49)
[2023-04-12 16:45] VITALS: BP 110/57; PULSE 82; TEMP 36.6; O2SAT 99
[2023-04-12] MEDS: cloZAPine 25 MG TABLET 225 MG PO (20:36)
[2023-04-12] MEDS: traZODone HCL 50 MG TABLET PO (20:37)
[2023-04-12] MEDS: Divalproex Sodium ER 500 MG TAB.ER.24H 1000 MG PO (20:37)
[2023-04-13] MEDS: Omeprazole 20 MG CAPSULE.DR PO (05:45)
[2023-04-13 08:00] VITALS: BP 132/78; PULSE 97; RESP 18; TEMP 36.4; O2SAT 97
[2023-04-13 08:29] LABS: Neut%MD 60.7 %; Neutrophils Absolute Auto 6.6 x10*3/uL (2.0-8.3); WBCANC 10.8 X10*3/uL
[2023-04-13 08:51] LABS: Estimated Glomerular Filt Rate > 60
[2023-04-13] MEDS: metFORMIN HCl 1,000 MG TABLET 1000 MG PO (08:51)
[2023-04-13] MEDS: Empagliflozin 10 MG TABLET PO (08:51)
[2023-04-13] MEDS: HaloperidoL 5 MG TABLET 7.5 MG PO ×2 (08:51→22:30)
[2023-04-13] MEDS: Magnesium Oxide 400 MG TABLET PO (08:51)
[2023-04-13] MEDS: Thiamine HCL 100 MG TABLET PO (08:51)
[2023-04-13] MEDS: Atorvastatin Calcium 40 MG TABLET PO (08:52)
[2023-04-13] MEDS: Ferrous Sulfate 324 MG TABLET.DR PO (08:52)
[2023-04-13] MEDS: Folic Acid 1 MG TABLET PO (08:52)
[2023-04-13] MEDS: LORazepam 1 MG TABLET PO ×3 (11:29→22:29)
[2023-04-13] MEDS: OLANZapine 5 MG TABLET PO (14:53)
[2023-04-13] MEDS: hydrOXYzine HCL 25 MG TABLET PO (14:53)
[2023-04-13] MEDS: Acetaminophen 325 MG TABLET 650 MG PO (14:53)
[2023-04-13] MEDS: Docusate Sodium 100 MG CAPSULE PO (16:31)
[2023-04-13 18:00] VITALS: BP 130/76; PULSE 76; RESP 20; TEMP 36.2; O2SAT 98
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
[2023-04-13] MEDS: cloZAPine 25 MG TABLET 250 MG PO (22:24)
[2023-04-13] MEDS: Divalproex Sodium ER 500 MG TAB.ER.24H 1000 MG PO (22:28)
[2023-04-13] MEDS: traZODone HCL 50 MG TABLET PO (22:29)
[2023-04-14] MEDS: Omeprazole 20 MG CAPSULE.DR PO (05:48)
[2023-04-14 06:00] VITALS: BP 101/55; PULSE 84; RESP 18; TEMP 36.6; O2SAT 94
[2023-04-14] MEDS: Ferrous Sulfate 324 MG TABLET.DR PO (08:57)
[2023-04-14] MEDS: Folic Acid 1 MG TABLET PO (08:57)
[2023-04-14] MEDS: HaloperidoL 5 MG TABLET 7.5 MG PO ×2 (08:57→20:36)
[2023-04-14] MEDS: Atorvastatin Calcium 40 MG TABLET PO (08:57)
[2023-04-14] MEDS: metFORMIN HCl 1,000 MG TABLET 1000 MG PO (08:58)
[2023-04-14] MEDS: Thiamine HCL 100 MG TABLET PO (08:58)
[2023-04-14] MEDS: Magnesium Oxide 400 MG TABLET PO (08:58)
[2023-04-14] MEDS: Empagliflozin 10 MG TABLET PO (08:58)
[2023-04-14] MEDS: Acetaminophen 325 MG TABLET 650 MG PO ×2 (14:56→20:35)
--- NOTE | 2023-04-14 16:49 | P.PNPSI_ITS ---
Subjective Subjective Date of Service: 04/14/23 Reason For Visit: psychosis Subjective Notes: Conditional Voluntary Healthcare Proxy: No Guardianship: No Medical Problems Affecting Mental Status: No Interim History: Call with pt to [place] [facility], Bee Jauregui. Pat discussed pt's situation, informing her that she may need to sign a new lease and contract. 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 Pat requests pt draft a letter to be sent to her attention explaining the situation which pt began working on this afternoon. Pt continues to improve with greater clarity. Today, she is tearful, worried about homelessness and is hard on herself for this error in her judgment. We discussed this as an effect of her illness. Medication Compliance: Yes Side effects from medications: No Attending Groups: Intermittent Review of Systems Acute medical concerns: No Medical Review of Systems: unchanged Review of Systems Review of Systems Yes all other systems are reviewed and are negative Mental Status Exam Mental Status Exam Patient Appearance: Appropriate and Unkempt Patient Orientation: Person, Place, Time and Situation Level of Consciousness: Alert Patient Behavior: Talkative, Anxious and Good Eye Contact Mood Description: Labile Affect Description: Labile Patient Cognition Impaired: No Ability to Follow Directions: Fair Speech Pattern: Spontaneous Speech Memory Description: Episodic Impaired Delusions: Present Perceptual Disturbances: Depersonalization and Derealization Thought Process: Distracted Thought Content: positive for Circumstantial Depressive Symptoms: Increased Anxiety Abnormal Motor Activity Signs and Symptoms: Restlessness Judgement: Fair Diagnostics Vital Signs (24Hr): Vital Signs - 24 hr 04/13/23 18:00 04/14/23 06:00 Temperature 97.2 F 97.8 F Pulse Rate 76 84 Respiratory Rate 20 18 Blood Pressure 130/76 101/55 L Pulse Oximetry 98 94 Oxygen Delivery Method Room Air Room Air BMI result Body Mass Index 26.6 Labs 03/15/23 17:16 04/13/23 08:17 Labs: Laboratory Results - last 48 hr 04/13/23 08:17 Absolute Neuts (auto) 6.6 Creatinine 0.81 Estim Creat Clear Calc 83.0 Estimated GFR > 60 Imaging Radiology Impressions: ITS Impressions Head CT 03/15/23 15:32 IMPRESSION: No acute intracranial abnormalities. Medications Medications Current Medications Acetaminophen (Acetaminophen 325 Mg Tablet) 650 mg PO Q6H PRN PRN Reason: Headache/Pain Mild Scale (1-3) Last Admin: 04/14/23 14:56 Dose: 650 mg Al Hydroxide/Mg Hydroxide (Magnesium Hydrox/Alum Hydrox 30 Ml Oral.Susp) 30 ml PO Q6H PRN PRN Reason: Heartburn/Nausea Last Admin: 04/10/23 08:23 Dose: 30 ml Albuterol Sulfate (Albuterol Sulfate 90 Mcg 8 Gm Inhaler) 2 puff INHALE Q6H PRN PRN Reason: Wheezing Atorvastatin Calcium (Atorvastatin Calcium 40 Mg Tablet) 40 mg PO DAILY [facility] Last Admin: 04/14/23 08:57 Dose: 40 mg Benzocaine (Throat Lozenge, Medicated Lozenge) 1 lozenge MUCOUS MEM Q2H PRN PRN Reason: Sore Throat Last Admin: 04/07/23 20:11 Dose: 1 lozenge Clozapine (Clozapine 25 Mg Tablet) 250 mg PO BEDTIME [facility] Last Admin: 04/13/23 22:24 Dose: 250 mg Divalproex Sodium (Divalproex Sodium Er 500 Mg Tab.Er.24h) 1,000 mg PO BEDTIME [facility] Last Admin: 04/13/23 22:28 Dose: 1,000 mg Docusate Sodium (Docusate Sodium 100 Mg Capsule) 100 mg PO BID PRN PRN Reason: constipation Last Admin: 04/13/23 16:31 Dose: 100 mg Empagliflozin (Empagliflozin 10 Mg Tablet) 10 mg PO DAILY [facility] Last Admin: 04/14/23 08:58 Dose: 10 mg Ferrous Sulfate (Ferrous Sulfate 324 Mg Tablet.Dr) 324 mg PO DAILY [facility] Last Admin: 04/14/23 08:57 Dose: 324 mg Folic Acid (Folic Acid 1 Mg Tablet) 1 mg PO DAILY [facility] Last Admin: 04/14/23 08:57 Dose: 1 mg Haloperidol (Haloperidol 5 Mg Tablet) 7.5 mg PO BID [facility] Last Admin: 04/14/23 08:57 Dose: 7.5 mg Hydroxyzine HCl (Hydroxyzine Hcl 25 Mg Tablet) 25 mg PO Q6H PRN PRN Reason: Anxiety Last Admin: 04/13/23 14:53 Dose: 25 mg Lorazepam (Lorazepam 1 Mg Tablet) 1 mg PO TID PRN PRN Reason: Anxiety Last Admin: 04/13/23 22:29 Dose: 1 mg Magnesium Hydroxide (Milk Of Magnesia 30 Ml Oral.Susp) 30 ml PO DAILY PRN PRN Reason: Constipation Last Admin: 04/12/23 09:40 Dose: 30 ml Magnesium Oxide (Magnesium Oxide 400 Mg Tablet) 400 mg PO DAILY [facility] Last Admin: 04/14/23 08:58 Dose: 400 mg Metformin HCl (Metformin Hcl 1,000 Mg Tablet) 1,000 mg PO DAILY [facility] Last Admin: 04/14/23 08:58 Dose: 1,000 mg Nicotine (Nicotine 21 Mg Patch.Td24) 21 mg TRANSDERMA DAILY PRN PRN Reason: smoking cessation Last Admin: 03/28/23 08:51 Dose: 21 mg Nicotine Polacrilex (Nicotine Polacrilex 2 Mg Gum) 4 mg BUCCAL Q2H PRN PRN Reason: Nicotine Cravings Olanzapine (Olanzapine 5 Mg Tablet) 5 mg PO TID PRN PRN Reason: agitation Last Admin: 04/13/23 14:53 Dose: 5 mg Omeprazole (Omeprazole 20 Mg Capsule.Dr) 20 mg PO DAILY@0630 [facility] Last Admin: 04/14/23 05:48 Dose: 20 mg Thiamine HCl (Thiamine Hcl 100 Mg Tablet) 100 mg PO DAILY [facility] Last Admin: 04/14/23 08:58 Dose: 100 mg Trazodone HCl (Trazodone Hcl 50 Mg Tablet) 50 mg PO BEDTIME MRX1 PRN PRN Reason: Insomnia Last Admin: 04/13/23 22:29 Dose: 50 mg Allergies Allergies Allergy/AdvReac Type Severity Reaction Status Date / Time Sulfa (Sulfonamide Allergy Severe THROAT Verified 03/15/23 18:22 Antibiotics) SWELLING,RASH [Sulfa (Sulfonamides)] sulfamethoxazole Allergy Severe THROAT Verified 03/15/23 18:22 [From Bactrim] SWELLING,RASH trimethoprim [From Bactrim] Allergy Severe THROAT Verified 03/15/23 18:22 SWELLING,RASH morphine [MORPHINE] Allergy Unknown ANAPHYLAXIS Verified 03/15/23 18:22 Assessment & Plan Assessment & Plan (1) Schizoaffective disorder, bipolar type: Status: Acute Code(s): F25.0 - Schizoaffective disorder, bipolar type Plan 52 yo female, hx of schizoaffective disorder, bipolar type, PTSD. 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 Plan: Re-establish regime Collateral contact, treatment team, mom, Humaira Chambersbea Otero [phone] Diagnostics as needed Encourage milieu involvement. 03/19/23 Continue regime, team reports noncompliance MEDICAL TERMINOLOGIST ~4-6 days. Adjustments moving forward. 03/19/23 Continue regime and plan. Pt reporting some improvement in her mood today. 03/21/23 Patient disorganized, labile; visitor came and patient's for at him and would not be with him. Earlier patient open the freezer and stuck her head in it, standing there and needed to be redirected. Software Applications Architect approach patient while sitting on a chair, curled up in crying. She says I miss my children at 21 and 22.... I lost me to take care of my children... I am not ready for 53, for my birthday... She then said something about a cubby hole... Software Applications Architect tries to inquire to understand better but patient remains tearful and says she just needs to cry some more but will get better on her own. -continue current regimen for now; adjustments have been made and may need time to work 03/22/23 remains disorganized in speech and behavior -increased clozapine to 125 mg 03/23/23 Depakote ER 500 mg hs 03/24/23 Continue current regime 03/25/23 Increase Clozapine to 175 mg HS 03/26/23 Patient remains disorganized, fearful, with bizarre behaviors. Clozapine recently increased so will continue current treatment regimen 03/27/23 Increase Clozapine to 200 mg HS and hold-by history this dose has been effective per OP team. 03/28/2023: Will increase clozapine from 175 mg to 200 mg tonight. 03/29: just increased Clozapine to 200mg 03/28 03/30: Patient presents disorganized, responding to internal stimuli. She reports having auditory and visual hallucinations but did not elaborate. Poor hygiene, disheveled. trash all over room. denies SI/HI. Patients insight and judgment are poor. medication compliant. continue current tx plan. 03/31/23 Dysphoric with some improvement in her communication. Finds Ativan helpful, continues with poor modulation and dysregulation. Haldol 5 mg bid 04/01/23 Continue current regime and plan of care. 04/02/23 little easier with which to engage however remains Disorganized in speech and behavior -increase clozapine a 25 mg 04/03/23 Continue current regime and plan of care. 04/04/23 Continue current regime and plan of care. 04/05/23 Continue current regime and plan of care. 04/06/23 Tentative discharge planning for 04/07/23. 04/07/23 Discharge 04/08/23 04/09/23 On 04/10 Increased Haldol to 7.5 mg bid Increased Depakote ER to 1000 mg HS 04/11: Continue current regimen and plans. 04/12:Continue current regimen and plans 04/13: Increase Clozapine to 250 mg HS 04/14: Continue current regime and plan. Letters drafted to [facility] to explain pt's wanting to cancel her [employer]. Patient educated on: other Informed Consent: further education needed Reason for continued inpatient stay Substantial Risk for: rapid decompensation Time Spent With Patient Time: Total time managing care of this patient today ____ minutes.
[2023-04-14 18:00] VITALS: BP 119/72; PULSE 91; RESP 20; TEMP 36.4; O2SAT 98
[2023-04-14] MEDS: hydrOXYzine HCL 25 MG TABLET PO (18:30)
[2023-04-14] MEDS: Magnesium Hydrox/Alum Hydrox 30 ML ORAL.SUSP PO (19:04)
[2023-04-14] MEDS: Divalproex Sodium ER 500 MG TAB.ER.24H 1000 MG PO (20:35)
[2023-04-14] MEDS: cloZAPine 200 MG, cloZAPine 50 MG 250 MG PO (20:36)
[2023-04-14] MEDS: traZODone HCL 50 MG TABLET PO (20:37)
[2023-04-14] MEDS: LORazepam 1 MG TABLET PO (20:37)
[2023-04-15] MEDS: Omeprazole 20 MG CAPSULE.DR PO (06:38)
[2023-04-15 08:12] VITALS: BP 125/61; PULSE 72; RESP 16; TEMP 37.1; O2SAT 97
[2023-04-15] MEDS: HaloperidoL 5 MG TABLET 7.5 MG PO ×2 (08:40→20:33)
[2023-04-15] MEDS: Magnesium Oxide 400 MG TABLET PO (08:41)
[2023-04-15] MEDS: Empagliflozin 10 MG TABLET PO (08:41)
[2023-04-15] MEDS: Atorvastatin Calcium 40 MG TABLET PO (08:42)
[2023-04-15] MEDS: Ferrous Sulfate 324 MG TABLET.DR PO (08:42)
[2023-04-15] MEDS: Thiamine HCL 100 MG TABLET PO (08:42)
[2023-04-15] MEDS: Folic Acid 1 MG TABLET PO (08:42)
[2023-04-15] MEDS: metFORMIN HCl 1,000 MG TABLET 1000 MG PO (08:42)
[2023-04-15] MEDS: LORazepam 1 MG TABLET PO (13:23)
--- NOTE | 2023-04-15 16:23 | P.PNPSI_ITS ---
Subjective Subjective Date of Service: 04/15/23 Reason For Visit: psychosis Subjective Notes: Conditional Voluntary Healthcare Proxy: No Guardianship: No Medical Problems Affecting Mental Status: No Interim History: Discussed concerns about housing and losing her housing. Letters reviewed, signed and faxed to [facility] authority per request of Bee Jauregui. Pt reports she is feeling improved, just with worry about where I will live . She reports she enjoys her new room-mate and asks that we thank the team for chosing her as the proper room-mate. Medication Compliance: Yes Side effects from medications: No Attending Groups: Intermittent Review of Systems Acute medical concerns: No Medical Review of Systems: unchanged Review of Systems Review of Systems Yes all other systems are reviewed and are negative Mental Status Exam Mental Status Exam Patient Appearance: Appropriate Patient Orientation: Person, Place, Time and Situation Level of Consciousness: Alert Patient Behavior: Talkative, Anxious and Good Eye Contact Mood Description: Anxious Affect Description: Anxious Patient Cognition Impaired: No Ability to Follow Directions: Fair Speech Pattern: Spontaneous Speech Memory Description: Episodic Impaired Delusions: Present Perceptual Disturbances: Depersonalization and Derealization Thought Process: Distracted Thought Content: positive for Circumstantial and positive for Tangential Depressive Symptoms: Increased Anxiety and Thoughts of /Suicide (denies SI, plan or intent) Abnormal Motor Activity Signs and Symptoms: Restlessness Judgement: Fair Diagnostics Vital Signs (24Hr): Vital Signs - 24 hr 04/14/23 18:00 04/15/23 08:12 Temperature 97.5 F 98.7 F Pulse Rate 91 72 Respiratory Rate 20 16 Blood Pressure 119/72 125/61 Pulse Oximetry 98 97 Oxygen Delivery Method Room Air Room Air BMI result Body Mass Index 26.6 Labs 03/15/23 17:16 04/13/23 08:17 Imaging Radiology Impressions: ITS Impressions Head CT 03/15/23 15:32 IMPRESSION: No acute intracranial abnormalities. Medications Medications Current Medications Acetaminophen (Acetaminophen 325 Mg Tablet) 650 mg PO Q6H PRN PRN Reason: Headache/Pain Mild Scale (1-3) Last Admin: 04/14/23 20:35 Dose: 650 mg Al Hydroxide/Mg Hydroxide (Magnesium Hydrox/Alum Hydrox 30 Ml Oral.Susp) 30 ml PO Q6H PRN PRN Reason: Heartburn/Nausea Last Admin: 04/14/23 19:04 Dose: 30 ml Albuterol Sulfate (Albuterol Sulfate 90 Mcg 8 Gm Inhaler) 2 puff INHALE Q6H PRN PRN Reason: Wheezing Atorvastatin Calcium (Atorvastatin Calcium 40 Mg Tablet) 40 mg PO DAILY [facility] Last Admin: 04/15/23 08:42 Dose: 40 mg Benzocaine (Throat Lozenge, Medicated Lozenge) 1 lozenge MUCOUS MEM Q2H PRN PRN Reason: Sore Throat Last Admin: 04/07/23 20:11 Dose: 1 lozenge Clozapine 200 mg/ Clozapine 50 (mg) 250 mg PO BEDTIME [facility] Last Admin: 04/14/23 20:36 Dose: 250 mg Divalproex Sodium (Divalproex Sodium Er 500 Mg Tab.Er.24h) 1,000 mg PO BEDTIME [facility] Last Admin: 04/14/23 20:35 Dose: 1,000 mg Docusate Sodium (Docusate Sodium 100 Mg Capsule) 100 mg PO BID PRN PRN Reason: constipation Last Admin: 04/13/23 16:31 Dose: 100 mg Empagliflozin (Empagliflozin 10 Mg Tablet) 10 mg PO DAILY [facility] Last Admin: 04/15/23 08:41 Dose: 10 mg Ferrous Sulfate (Ferrous Sulfate 324 Mg Tablet.Dr) 324 mg PO DAILY [facility] Last Admin: 04/15/23 08:42 Dose: 324 mg Folic Acid (Folic Acid 1 Mg Tablet) 1 mg PO DAILY [facility] Last Admin: 04/15/23 08:42 Dose: 1 mg Haloperidol (Haloperidol 5 Mg Tablet) 7.5 mg PO BID [facility] Last Admin: 04/15/23 08:40 Dose: 7.5 mg Hydroxyzine HCl (Hydroxyzine Hcl 25 Mg Tablet) 25 mg PO Q6H PRN PRN Reason: Anxiety Last Admin: 04/14/23 18:30 Dose: 25 mg Lorazepam (Lorazepam 1 Mg Tablet) 1 mg PO TID PRN PRN Reason: Anxiety Last Admin: 04/15/23 13:23 Dose: 1 mg Magnesium Hydroxide (Milk Of Magnesia 30 Ml Oral.Susp) 30 ml PO DAILY PRN PRN Reason: Constipation Last Admin: 04/12/23 09:40 Dose: 30 ml Magnesium Oxide (Magnesium Oxide 400 Mg Tablet) 400 mg PO DAILY [facility] Last Admin: 04/15/23 08:41 Dose: 400 mg Metformin HCl (Metformin Hcl 1,000 Mg Tablet) 1,000 mg PO DAILY [facility] Last Admin: 04/15/23 08:42 Dose: 1,000 mg Nicotine (Nicotine 21 Mg Patch.Td24) 21 mg TRANSDERMA DAILY PRN PRN Reason: smoking cessation Last Admin: 03/28/23 08:51 Dose: 21 mg Nicotine Polacrilex (Nicotine Polacrilex 2 Mg Gum) 4 mg BUCCAL Q2H PRN PRN Reason: Nicotine Cravings Olanzapine (Olanzapine 5 Mg Tablet) 5 mg PO TID PRN PRN Reason: agitation Last Admin: 04/13/23 14:53 Dose: 5 mg Omeprazole (Omeprazole 20 Mg Capsule.Dr) 20 mg PO DAILY@0630 [facility] Last Admin: 04/15/23 06:38 Dose: 20 mg Thiamine HCl (Thiamine Hcl 100 Mg Tablet) 100 mg PO DAILY [facility] Last Admin: 04/15/23 08:42 Dose: 100 mg Trazodone HCl (Trazodone Hcl 50 Mg Tablet) 50 mg PO BEDTIME [facility] PRN PRN Reason: Insomnia Last Admin: 04/14/23 20:37 Dose: 50 mg Allergies Allergies Allergy/AdvReac Type Severity Reaction Status Date / Time Sulfa (Sulfonamide Allergy Severe THROAT Verified 03/15/23 18:22 Antibiotics) SWELLING,RASH [Sulfa (Sulfonamides)] sulfamethoxazole Allergy Severe THROAT Verified 03/15/23 18:22 [From Bactrim] SWELLING,RASH trimethoprim [From Bactrim] Allergy Severe THROAT Verified 03/15/23 18:22 SWELLING,RASH morphine [MORPHINE] Allergy Unknown ANAPHYLAXIS Verified 03/15/23 18:22 Assessment & Plan Assessment & Plan (1) Schizoaffective disorder, bipolar type: Status: Acute Code(s): F25.0 - Schizoaffective disorder, bipolar type Plan 52 yo female, hx of schizoaffective disorder, bipolar type, PTSD. 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 Plan: Re-establish regime Collateral contact, treatment team, mom, Humaira Otero [phone] Diagnostics as needed Encourage milieu involvement. 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 Adjustments moving forward. 03/19/23 Continue regime and plan. Pt reporting some improvement in her mood today. 03/21/23 Patient disorganized, labile; visitor came and patient's for at him and would not be with him. Earlier patient open the freezer and stuck her head in it, standing there and needed to be redirected. Cloth Baler approach patient while sitting on a chair, curled up in crying. She says I miss my children at 21 and 22.... I lost me to take care of my children... I am not ready for 53, for my birthday... She then said something about a cubby hole... Cloth Baler tries to inquire to understand better but patient remains tearful and says she just needs to cry some more but will get better on her own. -continue current regimen for now; adjustments have been made and may need time to work 03/22/23 remains disorganized in speech and behavior -increased clozapine to 125 mg 03/23/23 Depakote ER 500 mg hs 03/24/23 Continue current regime 03/25/23 Increase Clozapine to 175 mg HS 03/26/23 Patient remains disorganized, fearful, with bizarre behaviors. Clozapine recently increased so will continue current treatment regimen 03/27/23 Increase Clozapine to 200 mg HS and hold-by history this dose has been effective per OP team. 03/28/2023: Will increase clozapine from 175 mg to 200 mg tonight. 03/29: just increased Clozapine to 200mg 03/28 03/30: Patient presents disorganized, responding to internal stimuli. She reports having auditory and visual hallucinations but did not elaborate. Poor hygiene, disheveled. trash all over room. denies SI/HI. Patients insight and judgment are poor. medication compliant. continue current tx plan. 03/31/23 Dysphoric with some improvement in her communication. Finds Ativan helpful, continues with poor modulation and dysregulation. Haldol 5 mg bid 04/01/23 Continue current regime and plan of care. 04/02/23 little easier with which to engage however remains Disorganized in speech and behavior -increase clozapine a 25 mg 04/03/23 Continue current regime and plan of care. 04/04/23 Continue current regime and plan of care. 04/05/23 Continue current regime and plan of care. 04/06/23 Tentative discharge planning for 04/07/23. 04/07/23 Discharge 04/08/23 04/09/23 On 04/10 Increased Haldol to 7.5 mg bid Increased Depakote ER to 1000 mg HS 04/11: Continue current regimen and plans. 04/12:Continue current regimen and plans 04/13: Increase Clozapine to 250 mg HS 04/14: Continue current regime and plan. Letters drafted to [facility] to explain pt's wanting to cancel her [employer]. 04/15/23 Letters sent to [facility] with pt's permission to maintain her Section VIII voucher. Patient educated on: therapeutic strategies and other Guardian/Caregiver educated on: medication risk/benefits Informed Consent: further education needed Reason for continued inpatient stay Substantial Risk for: rapid decompensation Time Spent With Patient Time: Total time managing care of this patient today ____ minutes.
--- NOTE | 2023-04-15 16:36 | PC.NURSE ---
I assumed care of this patient at 15:30, pt currently resting in bed with eyes closed and appears to be sleeping, in no apparent distress, respirations even and unlabored. Plan of care ongoing.
[2023-04-15 18:00] VITALS: BP 125/61; PULSE 80; RESP 16; TEMP 36.9; O2SAT 96
[2023-04-15 19:50] VITALS: BP 119/63; PULSE 80; RESP 18; TEMP 36.3; O2SAT 97
[2023-04-15] MEDS: cloZAPine 200 MG, cloZAPine 50 MG 250 MG PO (20:33)
[2023-04-15] MEDS: Divalproex Sodium ER 500 MG TAB.ER.24H 1000 MG PO (20:33)
[2023-04-15] MEDS: traZODone HCL 50 MG TABLET PO (20:34)
[2023-04-16] MEDS: Omeprazole 20 MG CAPSULE.DR PO (06:11)
[2023-04-16 08:22] VITALS: BP 102/62; PULSE 77; RESP 16; TEMP 36.7; O2SAT 95
[2023-04-16] MEDS: Magnesium Oxide 400 MG TABLET PO (09:34)
[2023-04-16] MEDS: Thiamine HCL 100 MG TABLET PO (09:34)
[2023-04-16] MEDS: HaloperidoL 5 MG TABLET 7.5 MG PO ×2 (09:34→20:58)
[2023-04-16] MEDS: Folic Acid 1 MG TABLET PO (09:34)
[2023-04-16] MEDS: metFORMIN HCl 1,000 MG TABLET 1000 MG PO (09:34)
[2023-04-16] MEDS: Atorvastatin Calcium 40 MG TABLET PO (09:34)
[2023-04-16] MEDS: Empagliflozin 10 MG TABLET PO (09:34)
[2023-04-16] MEDS: Ferrous Sulfate 324 MG TABLET.DR PO (09:35)
[2023-04-16] MEDS: Throat Lozenge, Medicated LOZENGE 1 LOZENGE MUCOUS MEM (11:03)
[2023-04-16] MEDS: LORazepam 1 MG TABLET PO (14:20)
[2023-04-16] MEDS: hydrOXYzine HCL 25 MG TABLET PO ×2 (14:47→20:59)
[2023-04-16] MEDS: OLANZapine 5 MG TABLET PO (14:47)
--- NOTE | 2023-04-16 18:52 | P.PNPSI_ITS ---
Subjective Subjective Date of Service: 04/16/23 Reason For Visit: psychosis Subjective Notes: Conditional Voluntary Healthcare Proxy: No Guardianship: No Medical Problems Affecting Mental Status: No Interim History: Lyndsay continues to improve. Family/Partner report they observe improvement. Pt is increasingly less tangential, more organized. She is active in participating in her appeal to re-enstate her housing voucher and active in strategizing with the team. She tentatively plans discharge for next week- she would like to be home for her birthday, however, it's OK if I am not, I am getting better and I feel it. I should not have stopped the medicine. No word today from housing-letters faxed as requested to Bee Jauregui Medication Compliance: Yes Side effects from medications: No Attending Groups: Intermittent Review of Systems Acute medical concerns: No Medical Review of Systems: unchanged Review of Systems Review of Systems Yes all other systems are reviewed and are negative Mental Status Exam Mental Status Exam Patient Appearance: Appropriate Patient Orientation: Person, Place, Time and Situation Level of Consciousness: Alert Patient Behavior: Talkative, Anxious and Good Eye Contact Mood Description: Anxious Affect Description: Anxious Patient Cognition Impaired: No Ability to Follow Directions: Fair Speech Pattern: Spontaneous Speech Memory Description: Episodic Impaired Delusions: Present Perceptual Disturbances: Depersonalization and Derealization Thought Process: Distracted Thought Content: positive for Circumstantial and positive for Tangential Depressive Symptoms: Increased Anxiety and Thoughts of /Suicide (denies SI, plan or intent) Abnormal Motor Activity Signs and Symptoms: Restlessness Judgement: Fair Diagnostics Vital Signs (24Hr): Vital Signs - 24 hr 04/15/23 19:50 04/16/23 08:22 Temperature 97.3 F 98.1 F Pulse Rate 80 77 Respiratory Rate 18 16 Blood Pressure 119/63 102/62 Pulse Oximetry 97 95 Oxygen Delivery Method Room Air Room Air BMI result Body Mass Index 26.6 Labs 03/15/23 17:16 04/13/23 08:17 Imaging Radiology Impressions: ITS Impressions Head CT 03/15/23 15:32 IMPRESSION: No acute intracranial abnormalities. Medications Medications Current Medications Acetaminophen (Acetaminophen 325 Mg Tablet) 650 mg PO Q6H PRN PRN Reason: Headache/Pain Mild Scale (1-3) Last Admin: 04/14/23 20:35 Dose: 650 mg Al Hydroxide/Mg Hydroxide (Magnesium Hydrox/Alum Hydrox 30 Ml Oral.Susp) 30 ml PO Q6H PRN PRN Reason: Heartburn/Nausea Last Admin: 04/14/23 19:04 Dose: 30 ml Albuterol Sulfate (Albuterol Sulfate 90 Mcg 8 Gm Inhaler) 2 puff INHALE Q6H PRN PRN Reason: Wheezing Atorvastatin Calcium (Atorvastatin Calcium 40 Mg Tablet) 40 mg PO DAILY [facility] Last Admin: 04/16/23 09:34 Dose: 40 mg Benzocaine (Throat Lozenge, Medicated Lozenge) 1 lozenge MUCOUS MEM Q2H PRN PRN Reason: Sore Throat Last Admin: 04/16/23 11:03 Dose: 1 lozenge Clozapine 200 mg/ Clozapine 50 (mg) 250 mg PO BEDTIME [facility] Last Admin: 04/15/23 20:33 Dose: 250 mg Divalproex Sodium (Divalproex Sodium Er 500 Mg Tab.Er.24h) 1,000 mg PO BEDTIME [facility] Last Admin: 04/15/23 20:33 Dose: 1,000 mg Docusate Sodium (Docusate Sodium 100 Mg Capsule) 100 mg PO BID PRN PRN Reason: constipation Last Admin: 04/13/23 16:31 Dose: 100 mg Empagliflozin (Empagliflozin 10 Mg Tablet) 10 mg PO DAILY [facility] Last Admin: 04/16/23 09:34 Dose: 10 mg Ferrous Sulfate (Ferrous Sulfate 324 Mg Tablet.Dr) 324 mg PO DAILY [facility] Last Admin: 04/16/23 09:35 Dose: 324 mg Folic Acid (Folic Acid 1 Mg Tablet) 1 mg PO DAILY [facility] Last Admin: 04/16/23 09:34 Dose: 1 mg Haloperidol (Haloperidol 5 Mg Tablet) 7.5 mg PO BID [facility] Last Admin: 04/16/23 09:34 Dose: 7.5 mg Hydroxyzine HCl (Hydroxyzine Hcl 25 Mg Tablet) 25 mg PO Q6H PRN PRN Reason: Anxiety Last Admin: 04/16/23 14:47 Dose: 25 mg Lorazepam (Lorazepam 1 Mg Tablet) 1 mg PO TID PRN PRN Reason: Anxiety Last Admin: 04/16/23 14:20 Dose: 1 mg Magnesium Hydroxide (Milk Of Magnesia 30 Ml Oral.Susp) 30 ml PO DAILY PRN PRN Reason: Constipation Last Admin: 04/12/23 09:40 Dose: 30 ml Magnesium Oxide (Magnesium Oxide 400 Mg Tablet) 400 mg PO DAILY [facility] Last Admin: 04/16/23 09:34 Dose: 400 mg Metformin HCl (Metformin Hcl 1,000 Mg Tablet) 1,000 mg PO DAILY [facility] Last Admin: 04/16/23 09:34 Dose: 1,000 mg Nicotine (Nicotine 21 Mg Patch.Td24) 21 mg TRANSDERMA DAILY PRN PRN Reason: smoking cessation Last Admin: 03/28/23 08:51 Dose: 21 mg Nicotine Polacrilex (Nicotine Polacrilex 2 Mg Gum) 4 mg BUCCAL Q2H PRN PRN Reason: Nicotine Cravings Olanzapine (Olanzapine 5 Mg Tablet) 5 mg PO TID PRN PRN Reason: agitation Last Admin: 04/16/23 14:47 Dose: 5 mg Omeprazole (Omeprazole 20 Mg Capsule.Dr) 20 mg PO DAILY@0630 [facility] Last Admin: 04/16/23 06:11 Dose: 20 mg Thiamine HCl (Thiamine Hcl 100 Mg Tablet) 100 mg PO DAILY [facility] Last Admin: 04/16/23 09:34 Dose: 100 mg Trazodone HCl (Trazodone Hcl 50 Mg Tablet) 50 mg PO BEDTIME MRX1 PRN PRN Reason: Insomnia Last Admin: 04/15/23 20:34 Dose: 50 mg Allergies Allergies Allergy/AdvReac Type Severity Reaction Status Date / Time Sulfa (Sulfonamide Allergy Severe THROAT Verified 03/15/23 18:22 Antibiotics) SWELLING,RASH [Sulfa (Sulfonamides)] sulfamethoxazole Allergy Severe THROAT Verified 03/15/23 18:22 [From Bactrim] SWELLING,RASH trimethoprim [From Bactrim] Allergy Severe THROAT Verified 03/15/23 18:22 SWELLING,RASH morphine [MORPHINE] Allergy Unknown ANAPHYLAXIS Verified 03/15/23 18:22 Assessment & Plan Assessment & Plan (1) Schizoaffective disorder, bipolar type: Status: Acute Code(s): F25.0 - Schizoaffective disorder, bipolar type Plan 52 yo female, hx of schizoaffective disorder, bipolar type, PTSD. 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 Plan: Re-establish regime Collateral contact, treatment team, mom, Humaira Otero [phone] Diagnostics as needed Encourage milieu involvement. 03/19/23 Continue regime, team reports noncompliance LEARNING SUPPORT SPECIALIST ~4-6 days. Adjustments moving forward. 03/19/23 Continue regime and plan. Pt reporting some improvement in her mood today. 03/21/23 Patient disorganized, labile; visitor came and patient's for at him and would not be with him. Earlier patient open the freezer and stuck her head in it, standing there and needed to be redirected. Field Artillery Radar Operator approach patient while sitting on a chair, curled up in crying. She says I miss my children at 21 and 22.... I lost me to take care of my children... I am not ready for 53, for my birthday... She then said something about a cubby hole... Field Artillery Radar Operator tries to inquire to understand better but patient remains tearful and says she just needs to cry some more but will get better on her own. -continue current regimen for now; adjustments have been made and may need time to work 03/22/23 remains disorganized in speech and behavior -increased clozapine to 125 mg 03/23/23 Depakote ER 500 mg hs 03/24/23 Continue current regime 03/25/23 Increase Clozapine to 175 mg HS 03/26/23 Patient remains disorganized, fearful, with bizarre behaviors. Clozapine recently increased so will continue current treatment regimen 03/27/23 Increase Clozapine to 200 mg HS and hold-by history this dose has been effective per OP team. 03/28/2023: Will increase clozapine from 175 mg to 200 mg tonight. 03/29: just increased Clozapine to 200mg 03/28 03/30: Patient presents disorganized, responding to internal stimuli. She reports having auditory and visual hallucinations but did not elaborate. Poor hygiene, disheveled. trash all over room. denies SI/HI. Patients insight and judgment are poor. medication compliant. continue current tx plan. 03/31/23 Dysphoric with some improvement in her communication. Finds Ativan helpful, continues with poor modulation and dysregulation. Haldol 5 mg bid 04/01/23 Continue current regime and plan of care. 04/02/23 little easier with which to engage however remains Disorganized in speech and behavior -increase clozapine a 25 mg 04/03/23 Continue current regime and plan of care. 04/04/23 Continue current regime and plan of care. 04/05/23 Continue current regime and plan of care. 04/06/23 Tentative discharge planning for 04/07/23. 04/07/23 Discharge 04/08/23 04/09/23 On 04/10 Increased Haldol to 7.5 mg bid Increased Depakote ER to 1000 mg HS 04/11: Continue current regimen and plans. 04/12:Continue current regimen and plans 04/13: Increase Clozapine to 250 mg HS 04/14: Continue current regime and plan. Letters drafted to [facility] to explain pt's wanting to cancel her [employer]. 04/15/23 Letters sent to [facility] with pt's permission to maintain her Section VIII voucher. 04/16/23 Continue current regime and plan of care. Patient educated on: therapeutic strategies Informed Consent: understands and further education needed Reason for continued inpatient stay Substantial Risk for: rapid decompensation Time Spent With Patient Time: Total time managing care of this patient today ____ minutes.
[2023-04-16 20:30] VITALS: BP 122/60; PULSE 76; RESP 18; TEMP 36.8; O2SAT 95
[2023-04-16] MEDS: cloZAPine 200 MG, cloZAPine 50 MG 250 MG PO (20:57)
[2023-04-16] MEDS: traZODone HCL 50 MG TABLET PO (20:57)
[2023-04-16] MEDS: Divalproex Sodium ER 500 MG TAB.ER.24H 1000 MG PO (20:58)
[2023-04-17 08:50] VITALS: BP 96/62; PULSE 77; RESP 16; TEMP 37; O2SAT 96
[2023-04-17] MEDS: metFORMIN HCl 1,000 MG TABLET 1000 MG PO (08:51)
[2023-04-17] MEDS: Thiamine HCL 100 MG TABLET PO (08:51)
[2023-04-17] MEDS: Magnesium Oxide 400 MG TABLET PO (08:52)
[2023-04-17] MEDS: Empagliflozin 10 MG TABLET PO (08:52)
[2023-04-17] MEDS: Atorvastatin Calcium 40 MG TABLET PO (08:52)
[2023-04-17] MEDS: Folic Acid 1 MG TABLET PO (08:52)
[2023-04-17] MEDS: Ferrous Sulfate 324 MG TABLET.DR PO (08:52)
[2023-04-17] MEDS: HaloperidoL 5 MG TABLET 7.5 MG PO ×2 (08:52→20:14)
[2023-04-17] MEDS: Omeprazole 20 MG CAPSULE.DR PO (08:52)
[2023-04-17] MEDS: LORazepam 1 MG TABLET PO ×2 (13:25→20:16)
--- NOTE | 2023-04-17 15:22 | P.PNPSI_ITS ---
Subjective Subjective Date of Service: 04/17/23 Reason For Visit: psychosis Subjective Notes: Conditional Voluntary Healthcare Proxy: No Guardianship: No Medical Problems Affecting Mental Status: No Interim History: Meeting with pt and her friend Aurelio. Aurelio brought in financial support for continuing housing voucher-gas, electric,cable bills, bank statement-copies made for [employer]. Aurelio also brought in a picture of pt's son-she spoke of his accomplishments and the pride she has in the person he is, his achievements and sensitivities. Pt continues to report feeling improved and presents consistently. Pt is also very supportive of her room-mate and is caring/protective of her Message left for [employer], Bee Jauregui, who returned our call-she has received our letters, however, has no further direction for what is needed next. She encouarged us to call next week to check in. Medication Compliance: Yes Side effects from medications: No Attending Groups: Intermittent Review of Systems Acute medical concerns: No Medical Review of Systems: unchanged Review of Systems Review of Systems Yes all other systems are reviewed and are negative Mental Status Exam Mental Status Exam Patient Appearance: Appropriate Patient Orientation: Person, Place, Time and Situation Level of Consciousness: Alert Patient Behavior: Talkative, Anxious and Good Eye Contact Mood Description: Anxious Affect Description: Anxious Patient Cognition Impaired: No Ability to Follow Directions: Fair Speech Pattern: Spontaneous Speech Memory Description: Episodic Impaired Delusions: Present Perceptual Disturbances: Depersonalization and Derealization Thought Process: Distracted Thought Content: positive for Circumstantial and positive for Tangential Depressive Symptoms: Increased Anxiety and Thoughts of /Suicide (denies SI, plan or intent) Abnormal Motor Activity Signs and Symptoms: Restlessness Judgement: Fair Diagnostics Vital Signs (24Hr): Vital Signs - 24 hr 04/16/23 20:30 04/17/23 08:50 Temperature 98.2 F 98.6 F Pulse Rate 76 77 Respiratory Rate 18 16 Blood Pressure 122/60 96/62 Pulse Oximetry 95 96 Oxygen Delivery Method Room Air Room Air BMI result Body Mass Index 26.6 Labs 03/15/23 17:16 04/13/23 08:17 Imaging Radiology Impressions: ITS Impressions Head CT 03/15/23 15:32 IMPRESSION: No acute intracranial abnormalities. Medications Medications Current Medications Acetaminophen (Acetaminophen 325 Mg Tablet) 650 mg PO Q6H PRN PRN Reason: Headache/Pain Mild Scale (1-3) Last Admin: 04/14/23 20:35 Dose: 650 mg Al Hydroxide/Mg Hydroxide (Magnesium Hydrox/Alum Hydrox 30 Ml Oral.Susp) 30 ml PO Q6H PRN PRN Reason: Heartburn/Nausea Last Admin: 04/14/23 19:04 Dose: 30 ml Albuterol Sulfate (Albuterol Sulfate 90 Mcg 8 Gm Inhaler) 2 puff INHALE Q6H PRN PRN Reason: Wheezing Atorvastatin Calcium (Atorvastatin Calcium 40 Mg Tablet) 40 mg PO DAILY [facility] Last Admin: 04/17/23 08:52 Dose: 40 mg Benzocaine (Throat Lozenge, Medicated Lozenge) 1 lozenge MUCOUS MEM Q2H PRN PRN Reason: Sore Throat Last Admin: 04/16/23 11:03 Dose: 1 lozenge Clozapine 200 mg/ Clozapine 50 (mg) 250 mg PO BEDTIME [facility] Last Admin: 04/16/23 20:57 Dose: 250 mg Divalproex Sodium (Divalproex Sodium Er 500 Mg Tab.Er.24h) 1,000 mg PO BEDTIME [facility] Last Admin: 04/16/23 20:58 Dose: 1,000 mg Docusate Sodium (Docusate Sodium 100 Mg Capsule) 100 mg PO BID PRN PRN Reason: constipation Last Admin: 04/13/23 16:31 Dose: 100 mg Empagliflozin (Empagliflozin 10 Mg Tablet) 10 mg PO DAILY [facility] Last Admin: 04/17/23 08:52 Dose: 10 mg Ferrous Sulfate (Ferrous Sulfate 324 Mg Tablet.Dr) 324 mg PO DAILY [facility] Last Admin: 04/17/23 08:52 Dose: 324 mg Folic Acid (Folic Acid 1 Mg Tablet) 1 mg PO DAILY [facility] Last Admin: 04/17/23 08:52 Dose: 1 mg Haloperidol (Haloperidol 5 Mg Tablet) 7.5 mg PO BID [facility] Last Admin: 04/17/23 08:52 Dose: 7.5 mg Hydroxyzine HCl (Hydroxyzine Hcl 25 Mg Tablet) 25 mg PO Q6H PRN PRN Reason: Anxiety Last Admin: 04/16/23 20:59 Dose: 25 mg Lorazepam (Lorazepam 1 Mg Tablet) 1 mg PO TID PRN PRN Reason: Anxiety Last Admin: 04/17/23 13:25 Dose: 1 mg Magnesium Hydroxide (Milk Of Magnesia 30 Ml Oral.Susp) 30 ml PO DAILY PRN PRN Reason: Constipation Last Admin: 04/12/23 09:40 Dose: 30 ml Magnesium Oxide (Magnesium Oxide 400 Mg Tablet) 400 mg PO DAILY [facility] Last Admin: 04/17/23 08:52 Dose: 400 mg Metformin HCl (Metformin Hcl 1,000 Mg Tablet) 1,000 mg PO DAILY [facility] Last Admin: 04/17/23 08:51 Dose: 1,000 mg Nicotine (Nicotine 21 Mg Patch.Td24) 21 mg TRANSDERMA DAILY PRN PRN Reason: smoking cessation Last Admin: 03/28/23 08:51 Dose: 21 mg Nicotine Polacrilex (Nicotine Polacrilex 2 Mg Gum) 4 mg BUCCAL Q2H PRN PRN Reason: Nicotine Cravings Olanzapine (Olanzapine 5 Mg Tablet) 5 mg PO TID PRN PRN Reason: agitation Last Admin: 04/16/23 14:47 Dose: 5 mg Omeprazole (Omeprazole 20 Mg Capsule.Dr) 20 mg PO DAILY@0630 [facility] Last Admin: 04/17/23 08:52 Dose: 20 mg Thiamine HCl (Thiamine Hcl 100 Mg Tablet) 100 mg PO DAILY [facility] Last Admin: 04/17/23 08:51 Dose: 100 mg Trazodone HCl (Trazodone Hcl 50 Mg Tablet) 50 mg PO BEDTIME MRX1 PRN PRN Reason: Insomnia Last Admin: 04/16/23 20:57 Dose: 50 mg Allergies Allergies Allergy/AdvReac Type Severity Reaction Status Date / Time Sulfa (Sulfonamide Allergy Severe THROAT Verified 03/15/23 18:22 Antibiotics) SWELLING,RASH [Sulfa (Sulfonamides)] sulfamethoxazole Allergy Severe THROAT Verified 03/15/23 18:22 [From Bactrim] SWELLING,RASH trimethoprim [From Bactrim] Allergy Severe THROAT Verified 03/15/23 18:22 SWELLING,RASH morphine [MORPHINE] Allergy Unknown ANAPHYLAXIS Verified 03/15/23 18:22 Assessment & Plan Assessment & Plan (1) Schizoaffective disorder, bipolar type: Status: Acute Code(s): F25.0 - Schizoaffective disorder, bipolar type Plan 52 yo female, hx of schizoaffective disorder, bipolar type, PTSD. 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 Plan: Re-establish regime Collateral contact, treatment team, mom, Humaira Otero [phone] Diagnostics as needed Encourage milieu involvement. 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 Adjustments moving forward. 03/19/23 Continue regime and plan. Pt reporting some improvement in her mood today. 03/21/23 Patient disorganized, labile; visitor came and patient's for at him and would not be with him. Earlier patient open the freezer and stuck her head in it, standing there and needed to be redirected. Hide Selector approach patient while sitting on a chair, curled up in crying. She says I miss my children at 21 and 22.... I lost me to take care of my children... I am not ready for 53, for my birthday... She then said something about a cubby hole... Hide Selector tries to inquire to understand better but patient remains tearful and says she just needs to cry some more but will get better on her own. -continue current regimen for now; adjustments have been made and may need time to work 03/22/23 remains disorganized in speech and behavior -increased clozapine to 125 mg 03/23/23 Depakote ER 500 mg hs 03/24/23 Continue current regime 03/25/23 Increase Clozapine to 175 mg HS 03/26/23 Patient remains disorganized, fearful, with bizarre behaviors. Clozapine recently increased so will continue current treatment regimen 03/27/23 Increase Clozapine to 200 mg HS and hold-by history this dose has been effective per OP team. 03/28/2023: Will increase clozapine from 175 mg to 200 mg tonight. 03/29: just increased Clozapine to 200mg 03/28 03/30: Patient presents disorganized, responding to internal stimuli. She reports having auditory and visual hallucinations but did not elaborate. Poor hygiene, disheveled. trash all over room. denies SI/HI. Patients insight and judgment are poor. medication compliant. continue current tx plan. 03/31/23 Dysphoric with some improvement in her communication. Finds Ativan helpful, continues with poor modulation and dysregulation. Haldol 5 mg bid 04/01/23 Continue current regime and plan of care. 04/02/23 little easier with which to engage however remains Disorganized in speech and behavior -increase clozapine a 25 mg 04/03/23 Continue current regime and plan of care. 04/04/23 Continue current regime and plan of care. 04/05/23 Continue current regime and plan of care. 04/06/23 Tentative discharge planning for 04/07/23. 04/07/23 Discharge 04/08/23 04/09/23 On 04/10 Increased Haldol to 7.5 mg bid Increased Depakote ER to 1000 mg HS 04/11: Continue current regimen and plans. 04/12:Continue current regimen and plans 04/13: Increase Clozapine to 250 mg HS 04/14: Continue current regime and plan. Letters drafted to [facility] to explain pt's wanting to cancel her Section VIII. 04/15/23 Letters sent to [facility] with pt's permission to maintain her Section VIII voucher. 04/17/23 Continue current regime and plan of care. [facility] They have no further direction for us at this time. Patient educated on: therapeutic strategies and other Guardian/Caregiver educated on: therapeutic strategies and other Informed Consent: understands and further education needed Reason for continued inpatient stay Substantial Risk for: rapid decompensation Time Spent With Patient Time: Total time managing care of this patient today ____ minutes.
[2023-04-17] MEDS: Acetaminophen 325 MG TABLET 650 MG PO (15:49)
[2023-04-17] MEDS: OLANZapine 5 MG TABLET PO (15:49)
[2023-04-17 16:30] VITALS: BP 108/73; PULSE 101; RESP 16; TEMP 36.6; O2SAT 96
[2023-04-17] MEDS: cloZAPine 200 MG, cloZAPine 50 MG 250 MG PO (20:15)
[2023-04-17] MEDS: traZODone HCL 50 MG TABLET PO (20:16)
[2023-04-17] MEDS: Divalproex Sodium ER 500 MG TAB.ER.24H 1000 MG PO (20:16)
[2023-04-18 06:00] VITALS: BP 110/58; PULSE 79; TEMP 36.2; O2SAT 97
--- NOTE | 2023-04-18 08:51 | P.PNPSI_ITS ---
Subjective Subjective Date of Service: 04/18/23 Reason For Visit: psychosis Interim History: met with patient; discussed with team Patient friendly on approach. Says she is good. Patient rambling a bit and can get distracted from topic, however she says she is looking forward to going home; she expects to find it clean and organized. She also said she has made a decision to be on her own not with her boyfriend choosing herself 1st Mental Status Exam Mental Status Exam Patient Appearance: Appropriate Patient Orientation: Person, Place, Time and Situation Level of Consciousness: Alert Patient Behavior: Talkative, Anxious and Good Eye Contact Mood Description: Anxious Affect Description: Anxious Patient Cognition Impaired: No Ability to Follow Directions: Fair Speech Pattern: Spontaneous Speech Memory Description: Episodic Impaired Delusions: Present Perceptual Disturbances: Depersonalization and Derealization Thought Process: Distracted Thought Content: positive for Circumstantial and positive for Tangential Depressive Symptoms: Increased Anxiety and Thoughts of /Suicide (denies SI, plan or intent) Abnormal Motor Activity Signs and Symptoms: Restlessness Judgement: Fair Diagnostics Vital Signs (24Hr): Vital Signs - 24 hr 04/17/23 16:30 Temperature 97.8 F Pulse Rate 101 H Respiratory Rate 16 Blood Pressure 108/73 Pulse Oximetry 96 Oxygen Delivery Method Room Air BMI result Body Mass Index 26.6 Labs 03/15/23 17:16 04/13/23 08:17 Imaging Radiology Impressions: ITS Impressions Head CT 03/15/23 15:32 IMPRESSION: No acute intracranial abnormalities. Medications Medications Current Medications Acetaminophen (Acetaminophen 325 Mg Tablet) 650 mg PO Q6H PRN PRN Reason: Headache/Pain Mild Scale (1-3) Last Admin: 04/17/23 15:49 Dose: 650 mg Al Hydroxide/Mg Hydroxide (Magnesium Hydrox/Alum Hydrox 30 Ml Oral.Susp) 30 ml PO Q6H PRN PRN Reason: Heartburn/Nausea Last Admin: 04/14/23 19:04 Dose: 30 ml Albuterol Sulfate (Albuterol Sulfate 90 Mcg 8 Gm Inhaler) 2 puff INHALE Q6H PRN PRN Reason: Wheezing Atorvastatin Calcium (Atorvastatin Calcium 40 Mg Tablet) 40 mg PO DAILY [facility] Last Admin: 04/17/23 08:52 Dose: 40 mg Benzocaine (Throat Lozenge, Medicated Lozenge) 1 lozenge MUCOUS MEM Q2H PRN PRN Reason: Sore Throat Last Admin: 04/16/23 11:03 Dose: 1 lozenge Clozapine 200 mg/ Clozapine 50 (mg) 250 mg PO BEDTIME [facility] Last Admin: 04/17/23 20:15 Dose: 250 mg Divalproex Sodium (Divalproex Sodium Er 500 Mg Tab.Er.24h) 1,000 mg PO BEDTIME [facility] Last Admin: 04/17/23 20:16 Dose: 1,000 mg Docusate Sodium (Docusate Sodium 100 Mg Capsule) 100 mg PO BID PRN PRN Reason: constipation Last Admin: 04/13/23 16:31 Dose: 100 mg Empagliflozin (Empagliflozin 10 Mg Tablet) 10 mg PO DAILY [facility] Last Admin: 04/17/23 08:52 Dose: 10 mg Ferrous Sulfate (Ferrous Sulfate 324 Mg Tablet.Dr) 324 mg PO DAILY [facility] Last Admin: 04/17/23 08:52 Dose: 324 mg Folic Acid (Folic Acid 1 Mg Tablet) 1 mg PO DAILY [facility] Last Admin: 04/17/23 08:52 Dose: 1 mg Haloperidol (Haloperidol 5 Mg Tablet) 7.5 mg PO BID [facility] Last Admin: 04/17/23 20:14 Dose: 7.5 mg Hydroxyzine HCl (Hydroxyzine Hcl 25 Mg Tablet) 25 mg PO Q6H PRN PRN Reason: Anxiety Last Admin: 04/16/23 20:59 Dose: 25 mg Lorazepam (Lorazepam 1 Mg Tablet) 1 mg PO TID PRN PRN Reason: Anxiety Last Admin: 04/17/23 20:16 Dose: 1 mg Magnesium Hydroxide (Milk Of Magnesia 30 Ml Oral.Susp) 30 ml PO DAILY PRN PRN Reason: Constipation Last Admin: 04/12/23 09:40 Dose: 30 ml Magnesium Oxide (Magnesium Oxide 400 Mg Tablet) 400 mg PO DAILY [facility] Last Admin: 04/17/23 08:52 Dose: 400 mg Metformin HCl (Metformin Hcl 1,000 Mg Tablet) 1,000 mg PO DAILY [facility] Last Admin: 04/17/23 08:51 Dose: 1,000 mg Nicotine (Nicotine 21 Mg Patch.Td24) 21 mg TRANSDERMA DAILY PRN PRN Reason: smoking cessation Last Admin: 03/28/23 08:51 Dose: 21 mg Nicotine Polacrilex (Nicotine Polacrilex 2 Mg Gum) 4 mg BUCCAL Q2H PRN PRN Reason: Nicotine Cravings Olanzapine (Olanzapine 5 Mg Tablet) 5 mg PO TID PRN PRN Reason: agitation Last Admin: 04/17/23 15:49 Dose: 5 mg Omeprazole (Omeprazole 20 Mg Capsule.) 20 mg PO DAILY@0630 [facility] Last Admin: 04/18/23 05:51 Dose: Not Given Thiamine HCl (Thiamine Hcl 100 Mg Tablet) 100 mg PO DAILY [facility] Last Admin: 04/17/23 08:51 Dose: 100 mg Trazodone HCl (Trazodone Hcl 50 Mg Tablet) 50 mg PO BEDTIME MRX1 PRN PRN Reason: Insomnia Last Admin: 04/17/23 20:16 Dose: 50 mg Allergies Allergies Allergy/AdvReac Type Severity Reaction Status Date / Time Sulfa (Sulfonamide Allergy Severe THROAT Verified 03/15/23 18:22 Antibiotics) SWELLING,RASH [Sulfa (Sulfonamides)] sulfamethoxazole Allergy Severe THROAT Verified 03/15/23 18:22 [From Bactrim] SWELLING,RASH trimethoprim [From Bactrim] Allergy Severe THROAT Verified 03/15/23 18:22 SWELLING,RASH morphine [MORPHINE] Allergy Unknown ANAPHYLAXIS Verified 03/15/23 18:22 Assessment & Plan Assessment & Plan (1) Schizoaffective disorder, bipolar type: Status: Acute Code(s): F25.0 - Schizoaffective disorder, bipolar type Plan 52 yo female, hx of schizoaffective disorder, bipolar type, PTSD. 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 Plan: Re-establish regime Collateral contact, treatment team, mom, Humaira Otero [phone] Diagnostics as needed Encourage milieu involvement. 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 Adjustments moving forward. 03/19/23 Continue regime and plan. Pt reporting some improvement in her mood today. 03/21/23 Patient disorganized, labile; visitor came and patient's for at him and would not be with him. Earlier patient open the freezer and stuck her head in it, standing there and needed to be redirected. Ferryboat Operator Helper approach patient while sitting on a chair, curled up in crying. She says I miss my children at 21 and 22.... I lost me to take care of my children... I am not ready for 53, for my birthday... She then said something about a cubby hole... Ferryboat Operator Helper tries to inquire to understand better but patient remains tearful and says she just needs to cry some more but will get better on her own. -continue current regimen for now; adjustments have been made and may need time to work 03/22/23 remains disorganized in speech and behavior -increased clozapine to 125 mg 03/23/23 Depakote ER 500 mg hs 03/24/23 Continue current regime 03/25/23 Increase Clozapine to 175 mg HS 03/26/23 Patient remains disorganized, fearful, with bizarre behaviors. Clozapine recently increased so will continue current treatment regimen 03/27/23 Increase Clozapine to 200 mg HS and hold-by history this dose has been effective per OP team. 03/28/2023: Will increase clozapine from 175 mg to 200 mg tonight. 03/29: just increased Clozapine to 200mg 03/28 03/30: Patient presents disorganized, responding to internal stimuli. She reports having auditory and visual hallucinations but did not elaborate. Poor hygiene, disheveled. trash all over room. denies SI/HI. Patients insight and judgment are poor. medication compliant. continue current tx plan. 03/31/23 Dysphoric with some improvement in her communication. Finds Ativan helpful, continues with poor modulation and dysregulation. Haldol 5 mg bid 04/01/23 Continue current regime and plan of care. 04/02/23 little easier with which to engage however remains Disorganized in speech and behavior -increase clozapine a 25 mg 04/03/23 Continue current regime and plan of care. 04/04/23 Continue current regime and plan of care. 04/05/23 Continue current regime and plan of care. 04/06/23 Tentative discharge planning for 04/07/23. 04/07/23 Discharge 04/08/23 04/09/23 On 04/10 Increased Haldol to 7.5 mg bid Increased Depakote ER to 1000 mg HS 04/11: Continue current regimen and plans. 04/12:Continue current regimen and plans 04/13: Increase Clozapine to 250 mg HS 04/14: Continue current regime and plan. Letters drafted to [facility] to explain pt's wanting to cancel her Section VIII. 04/15/23 Letters sent to [facility] with pt's permission to maintain her Section VIII voucher. 04/17/23 Continue current regime and plan of care. [facility] has received our letters. They have no further direction for us at this time. 04/18/23 continue current treatment plan Patient educated on: diagnosis Informed Consent: understands and further education needed Reason for continued inpatient stay Substantial Risk for: rapid decompensation Time Spent With Patient Time: Total time managing care of this patient today ____ minutes.
[2023-04-18] MEDS: metFORMIN HCl 1,000 MG TABLET 1000 MG PO (08:52)
[2023-04-18] MEDS: Magnesium Oxide 400 MG TABLET PO (08:52)
[2023-04-18] MEDS: HaloperidoL 5 MG TABLET 7.5 MG PO ×2 (08:52→20:47)
[2023-04-18] MEDS: Ferrous Sulfate 324 MG TABLET.DR PO (08:53)
[2023-04-18] MEDS: Empagliflozin 10 MG TABLET PO (08:53)
[2023-04-18] MEDS: Omeprazole 20 MG CAPSULE.DR PO (08:53)
[2023-04-18] MEDS: Atorvastatin Calcium 40 MG TABLET PO (08:53)
[2023-04-18] MEDS: Folic Acid 1 MG TABLET PO (08:53)
[2023-04-18] MEDS: Thiamine HCL 100 MG TABLET PO (08:53)
[2023-04-18] MEDS: LORazepam 1 MG TABLET PO ×2 (09:02→20:48)
[2023-04-18] MEDS: hydrOXYzine HCL 25 MG TABLET PO (11:49)
[2023-04-18] MEDS: Docusate Sodium 100 MG CAPSULE PO (11:49)
[2023-04-18 18:00] VITALS: PULSE 105; RESP 20; TEMP 36.1; O2SAT 98
[2023-04-18] MEDS: traZODone HCL 50 MG TABLET PO (20:43)
[2023-04-18] MEDS: cloZAPine 200 MG, cloZAPine 50 MG 250 MG PO (20:43)
[2023-04-18] MEDS: Divalproex Sodium ER 500 MG TAB.ER.24H 1000 MG PO (20:44)
[2023-04-19] MEDS: Omeprazole 20 MG CAPSULE.DR PO (06:06)
[2023-04-19 08:00] VITALS: BP 111/59; PULSE 70; RESP 18; TEMP 36.3; O2SAT 93
[2023-04-19 08:08] LABS: Creatinine Clr Calc Pharmacy 87.3; Estimated Glomerular Filt Rate > 60
[2023-04-19] MEDS: Thiamine HCL 100 MG TABLET PO (08:40)
[2023-04-19] MEDS: HaloperidoL 5 MG TABLET 7.5 MG PO ×2 (08:41→20:18)
[2023-04-19] MEDS: Ferrous Sulfate 324 MG TABLET.DR PO (08:42)
[2023-04-19] MEDS: Atorvastatin Calcium 40 MG TABLET PO (08:42)
[2023-04-19] MEDS: Folic Acid 1 MG TABLET PO (08:42)
[2023-04-19] MEDS: metFORMIN HCl 1,000 MG TABLET 1000 MG PO (08:42)
[2023-04-19] MEDS: Magnesium Oxide 400 MG TABLET PO (08:42)
[2023-04-19] MEDS: Empagliflozin 10 MG TABLET PO (08:42)
--- NOTE | 2023-04-19 10:07 | HO.PSYCHPN ---
Subjective Subjective Date of Service: 04/19/23 Reason For Visit: psychosis Interim History: met with patient; discussed with team Patient initially feeling upset about taking medications, saying she feels groggy in the morning and that she really does not need them, denying psychiatric illness. Hospital Nurse shared that if she stops taking her medication she will and of coming back to the hospital to which she disagreed with and then started to cry. Later patient came and found teletypewriter operator and said she knows she needs medications and she knows she will end up back in the hospital she stops taking them. That she will continue to take them. However it does bother her that they make her tired in the morning and also has significantly reduced her libido which she says is upsetting. Hospital Nurse agreed to see if there is any medication changes that can be made to help in these areas. Mental Status Exam Mental Status Exam Patient Appearance: Appropriate Patient Orientation: Person, Place, Time and Situation Level of Consciousness: Alert Patient Behavior: Talkative, Anxious and Good Eye Contact Mood Description: Anxious Affect Description: Anxious Patient Cognition Impaired: No Ability to Follow Directions: Fair Speech Pattern: Spontaneous Speech Memory Description: Episodic Impaired Delusions: Present Perceptual Disturbances: Depersonalization and Derealization Thought Process: Distracted Thought Content: positive for Circumstantial and positive for Tangential Depressive Symptoms: Increased Anxiety and Thoughts of /Suicide (denies SI, plan or intent) Abnormal Motor Activity Signs and Symptoms: Restlessness Judgement: Fair Diagnostics Vital Signs (24Hr): Vital Signs - 24 hr 04/18/23 18:00 04/19/23 08:00 Temperature 97 F 97.3 F Pulse Rate 105 H 70 Respiratory Rate 20 18 Blood Pressure 111/59 L Pulse Oximetry 98 93 Oxygen Delivery Method Room Air Room Air BMI result Body Mass Index 26.6 Labs 03/15/23 17:16 04/19/23 07:44 Labs: Laboratory Results - last 48 hr 04/19/23 07:44 Creatinine 0.77 Estim Creat Clear Calc 87.3 Estimated GFR > 60 Imaging Radiology Impressions: ITS Impressions Head CT 03/15/23 15:32 IMPRESSION: No acute intracranial abnormalities. Medications Medications Current Medications Acetaminophen (Acetaminophen 325 Mg Tablet) 650 mg PO Q6H PRN PRN Reason: Headache/Pain Mild Scale (1-3) Last Admin: 04/17/23 15:49 Dose: 650 mg Al Hydroxide/Mg Hydroxide (Magnesium Hydrox/Alum Hydrox 30 Ml Oral.Susp) 30 ml PO Q6H PRN PRN Reason: Heartburn/Nausea Last Admin: 04/14/23 19:04 Dose: 30 ml Albuterol Sulfate (Albuterol Sulfate 90 Mcg 8 Gm Inhaler) 2 puff INHALE Q6H PRN PRN Reason: Wheezing Atorvastatin Calcium (Atorvastatin Calcium 40 Mg Tablet) 40 mg PO DAILY [facility] Last Admin: 04/19/23 08:42 Dose: 40 mg Benzocaine (Throat Lozenge, Medicated Lozenge) 1 lozenge MUCOUS MEM Q2H PRN PRN Reason: Sore Throat Last Admin: 04/16/23 11:03 Dose: 1 lozenge Clozapine 200 mg/ Clozapine 50 (mg) 250 mg PO BEDTIME [facility] Last Admin: 04/18/23 20:43 Dose: 250 mg Divalproex Sodium (Divalproex Sodium Er 500 Mg Tab.Er.24h) 1,000 mg PO BEDTIME [facility] Last Admin: 04/18/23 20:44 Dose: 1,000 mg Docusate Sodium (Docusate Sodium 100 Mg Capsule) 100 mg PO BID PRN PRN Reason: constipation Last Admin: 04/18/23 11:49 Dose: 100 mg Empagliflozin (Empagliflozin 10 Mg Tablet) 10 mg PO DAILY [facility] Last Admin: 04/19/23 08:42 Dose: 10 mg Ferrous Sulfate (Ferrous Sulfate 324 Mg Tablet.Dr) 324 mg PO DAILY [facility] Last Admin: 04/19/23 08:42 Dose: 324 mg Folic Acid (Folic Acid 1 Mg Tablet) 1 mg PO DAILY [facility] Last Admin: 04/19/23 08:42 Dose: 1 mg Haloperidol (Haloperidol 5 Mg Tablet) 7.5 mg PO BID [facility] Last Admin: 04/19/23 08:41 Dose: 7.5 mg Hydroxyzine HCl (Hydroxyzine Hcl 25 Mg Tablet) 25 mg PO Q6H PRN PRN Reason: Anxiety Last Admin: 04/18/23 11:49 Dose: 25 mg Lorazepam (Lorazepam 1 Mg Tablet) 1 mg PO TID PRN PRN Reason: Anxiety Last Admin: 04/18/23 20:48 Dose: 1 mg Magnesium Hydroxide (Milk Of Magnesia 30 Ml Oral.Susp) 30 ml PO DAILY PRN PRN Reason: Constipation Last Admin: 04/12/23 09:40 Dose: 30 ml Magnesium Oxide (Magnesium Oxide 400 Mg Tablet) 400 mg PO DAILY [facility] Last Admin: 04/19/23 08:42 Dose: 400 mg Metformin HCl (Metformin Hcl 1,000 Mg Tablet) 1,000 mg PO DAILY [facility] Last Admin: 04/19/23 08:42 Dose: 1,000 mg Nicotine (Nicotine 21 Mg Patch.Td24) 21 mg TRANSDERMA DAILY PRN PRN Reason: smoking cessation Last Admin: 03/28/23 08:51 Dose: 21 mg Nicotine Polacrilex (Nicotine Polacrilex 2 Mg Gum) 4 mg BUCCAL Q2H PRN PRN Reason: Nicotine Cravings Olanzapine (Olanzapine 5 Mg Tablet) 5 mg PO TID PRN PRN Reason: agitation Last Admin: 04/17/23 15:49 Dose: 5 mg Omeprazole (Omeprazole 20 Mg Capsule.Dr) 20 mg PO DAILY@0630 [facility] Last Admin: 04/19/23 06:06 Dose: 20 mg Thiamine HCl (Thiamine Hcl 100 Mg Tablet) 100 mg PO DAILY [facility] Last Admin: 04/19/23 08:40 Dose: 100 mg Trazodone HCl (Trazodone Hcl 50 Mg Tablet) 50 mg PO BEDTIME MRX1 PRN PRN Reason: Insomnia Last Admin: 04/18/23 20:43 Dose: 50 mg Allergies Allergies Allergy/AdvReac Type Severity Reaction Status Date / Time Sulfa (Sulfonamide Allergy Severe THROAT Verified 03/15/23 18:22 Antibiotics) SWELLING,RASH [Sulfa (Sulfonamides)] sulfamethoxazole Allergy Severe THROAT Verified 03/15/23 18:22 [From Bactrim] SWELLING,RASH trimethoprim [From Bactrim] Allergy Severe THROAT Verified 03/15/23 18:22 SWELLING,RASH morphine [MORPHINE] Allergy Unknown ANAPHYLAXIS Verified 03/15/23 18:22 Assessment & Plan Assessment & Plan (1) Schizoaffective disorder, bipolar type: Status: Acute Code(s): F25.0 - Schizoaffective disorder, bipolar type Plan 52 yo female, hx of schizoaffective disorder, bipolar type, PTSD. 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 Plan: Re-establish regime Collateral contact, treatment team, mom, Humaira Otero [phone] Diagnostics as needed Encourage milieu involvement. 03/19/23 Continue regime, team reports noncompliance COLLAR STITCHER ~4-6 days. Adjustments moving forward. 03/19/23 Continue regime and plan. Pt reporting some improvement in her mood today. 03/21/23 Patient disorganized, labile; visitor came and patient's for at him and would not be with him. Earlier patient open the freezer and stuck her head in it, standing there and needed to be redirected. Hospital Nurse approach patient while sitting on a chair, curled up in crying. She says I miss my children at 21 and 22.... I lost me to take care of my children... I am not ready for 53, for my birthday... She then said something about a cubby hole... Hospital Nurse tries to inquire to understand better but patient remains tearful and says she just needs to cry some more but will get better on her own. -continue current regimen for now; adjustments have been made and may need time to work 03/22/23 remains disorganized in speech and behavior -increased clozapine to 125 mg 03/23/23 Depakote ER 500 mg hs 03/24/23 Continue current regime 03/25/23 Increase Clozapine to 175 mg HS 03/26/23 Patient remains disorganized, fearful, with bizarre behaviors. Clozapine recently increased so will continue current treatment regimen 03/27/23 Increase Clozapine to 200 mg HS and hold-by history this dose has been effective per OP team. 03/28/2023: Will increase clozapine from 175 mg to 200 mg tonight. 03/29: just increased Clozapine to 200mg 03/28 03/30: Patient presents disorganized, responding to internal stimuli. She reports having auditory and visual hallucinations but did not elaborate. Poor hygiene, disheveled. trash all over room. denies SI/HI. Patients insight and judgment are poor. medication compliant. continue current tx plan. 03/31/23 Dysphoric with some improvement in her communication. Finds Ativan helpful, continues with poor modulation and dysregulation. Haldol 5 mg bid 04/01/23 Continue current regime and plan of care. 04/02/23 little easier with which to engage however remains Disorganized in speech and behavior -increase clozapine a 25 mg 04/03/23 Continue current regime and plan of care. 04/04/23 Continue current regime and plan of care. 04/05/23 Continue current regime and plan of care. 04/06/23 Tentative discharge planning for 04/07/23. 04/07/23 Discharge 04/08/23 04/09/23 On 04/10 Increased Haldol to 7.5 mg bid Increased Depakote ER to 1000 mg HS 04/11: Continue current regimen and plans. 04/12:Continue current regimen and plans 04/13: Increase Clozapine to 250 mg HS 04/14: Continue current regime and plan. Letters drafted to [facility] to explain pt's wanting to cancel her Section VIII. 04/15/23 Letters sent to [facility] with pt's permission to maintain her Section VIII voucher. 04/17/23 Continue current regime and plan of care. [facility] has received our letters. They have no further direction for us at this time. 04/18/23 continue current treatment plan 04/19 Patient initially feeling upset about taking medications, saying she feels groggy in the morning and that she really does not need them, denying psychiatric illness. Hospital Nurse shared that if she stops taking her medication she will and of coming back to the hospital to which she disagreed with and then started to cry. Later patient came and found teletypewriter operator and said she knows she needs medications and she knows she will end up back in the hospital she stops taking them. That she will continue to take them. However it does bother her that they make her tired in the morning and also has significantly reduced her libido which she says is upsetting. Hospital Nurse agreed to see if there is any medication changes that can be made to help in these areas. Patient educated on: diagnosis and medication risk/benefits Informed Consent: understands Reason for continued inpatient stay Substantial Risk for: rapid decompensation Time Spent With Patient Time: Total time managing care of this patient today ____ minutes.
[2023-04-19 17:25] VITALS: BP 119/56; PULSE 88; RESP 16; TEMP 36.3; O2SAT 94
[2023-04-19] MEDS: hydrOXYzine HCL 25 MG TABLET PO (18:38)
[2023-04-19] MEDS: Acetaminophen 325 MG TABLET 650 MG PO (19:57)
[2023-04-19] MEDS: Divalproex Sodium ER 500 MG TAB.ER.24H 1000 MG PO (19:59)
[2023-04-19] MEDS: cloZAPine 200 MG, cloZAPine 50 MG 250 MG PO (20:00)
[2023-04-20] MEDS: Omeprazole 20 MG CAPSULE.DR PO (05:46)
[2023-04-20 08:22] VITALS: BP 128/73; PULSE 70; RESP 16; TEMP 36.4; O2SAT 96
[2023-04-20] MEDS: metFORMIN HCl 1,000 MG TABLET 1000 MG PO (08:33)
[2023-04-20] MEDS: HaloperidoL 5 MG TABLET 7.5 MG PO (08:33)
[2023-04-20] MEDS: Empagliflozin 10 MG TABLET PO (08:33)
[2023-04-20] MEDS: Ferrous Sulfate 324 MG TABLET.DR PO (08:33)
[2023-04-20] MEDS: Thiamine HCL 100 MG TABLET PO (08:33)
[2023-04-20] MEDS: Atorvastatin Calcium 40 MG TABLET PO (08:33)
[2023-04-20] MEDS: Magnesium Oxide 400 MG TABLET PO (08:33)
[2023-04-20] MEDS: Folic Acid 1 MG TABLET PO (08:33)
[2023-04-20 11:09] LABS: Neut%MD 64.1 %; Neutrophils Absolute Auto 5.7 x10*3/uL (2.0-8.3); WBCANC 8.9 X10*3/uL
[2023-04-20] MEDS: hydrOXYzine HCL 25 MG TABLET PO (11:15)
[2023-04-20 11:20] LABS: Valproate 88.6 mcg/mL (50.0-100.0)
[2023-04-20 11:22] LABS: Creatinine Clr Calc Pharmacy 80.1; Estimated Glomerular Filt Rate > 60
--- NOTE | 2023-04-20 12:46 | PM.PSYDC ---
DS: Providers Provider Date of Service: 04/20/23 Date of admission: 03/17/23 14:54 Date of discharge: 04/20/23 Primary care physician: Unknown Physician Admitting clinician: Fatmata Brito Attending physician on admission: Vasu Sharp Attending physician on discharge: Vasu Sharp Discharging clinician: Fatmata Brito DS: Diagnosis Discharge Diagnosis (1) Schizoaffective disorder, bipolar type: Status: Acute DS: Medications Discharge Medications Home Medications: Previous Rx's Medication Instructions Recorded albuterol sulfate 90 mcg/actuation 2 puff inhalation Q4-6H PRN 04/20/23 aerosol inhaler (Ventolin HFA) wheezing #8.5 grams atorvastatin 40 mg tablet (Lipitor) 40 mg PO DAILY #30 tabs 04/20/23 clozapine 200 mg tablet 200 mg PO BEDTIME #7 tabs 04/20/23 clozapine 50 mg tablet 50 mg PO BEDTIME #7 tabs 04/20/23 divalproex 500 mg tablet,extended 500 mg PO BEDTIME #14 tabs 04/20/23 release 24 hr (Depakote ER) docusate sodium 100 mg capsule 100 mg PO BID PRN constipation #60 04/20/23 (Colace) caps empagliflozin 10 mg tablet 10 mg PO DAILY #30 tabs 04/20/23 (Jardiance) ferrous sulfate 324 mg (65 mg 324 mg PO DAILY #30 tabs 04/20/23 iron) tablet,delayed release folic acid 1 mg tablet 1 mg PO DAILY #30 tabs 04/20/23 haloperidol 5 mg tablet 5 mg PO BID #14 tabs 04/20/23 magnesium oxide 400 mg PO DAILY #30 tabs 04/20/23 metformin 1,000 mg tablet 1,000 mg PO DAILY #30 tabs 04/20/23 omeprazole 20 mg capsule,delayed 20 mg PO DAILY #30 caps 04/20/23 release thiamine HCl (vitamin B1) 100 mg 100 mg PO DAILY #30 tabs 04/20/23 tablet Mental Status Exam Mental Status Exam Patient Appearance: Appropriate Patient Orientation: Person, Place, Time and Situation Level of Consciousness: Alert Patient Behavior: Talkative, Anxious and Good Eye Contact Mood Description: Anxious Affect Description: Anxious Patient Cognition Impaired: No Ability to Follow Directions: Fair Speech Pattern: Spontaneous Speech Memory Description: Episodic Impaired Delusions: Present Perceptual Disturbances: Depersonalization and Derealization Thought Process: Distracted Thought Content: positive for Circumstantial and positive for Tangential Depressive Symptoms: Increased Anxiety and Thoughts of /Suicide (denies SI, plan or intent) Abnormal Motor Activity Signs and Symptoms: Restlessness Judgement: Fair Data Data Completed and Pending Completed studies during hospitalization [Text1]: 04/19/23 04/20/23 07:44 10:57 Absolute Neuts (auto) 5.7 Creatinine 0.77 0.83 Estim Creat Clear Calc 87.3 80.1 Estimated GFR > 60 > 60 Valproic Acid 88.6 Imaging Diagnostic Imaging Impressions Head CT 03/15/23 15:32 IMPRESSION: No acute intracranial abnormalities. DS: Summary Hospital Course Hospital Course: Admission to adult psychiatry with acute psychotic decompensation in the context of schizoaffective disorder, bipolar type. Pt, prior to admission had stopped medications. Out patient team reports history of severe decompensations with long recovery times. This admission was true to that history. Clozaril was re-started and titrated to 250 mg. Depakote was initiated, titrated to 1000 mg daily, with a level of 88.6 and dose was decreased to 500 mg daily. Haldol was titrated to 7.5 mg bid tolerated with sedation and decreased to 5 mg bid. Pt has slowly recompensated. She decided that she would keep her own apartment and not move in with her partner, a decision she made when recovering. She is working with housing on re-enstating her lease to keep her apartment. This was not completed upon her discharge. She will return to her out patient provider group this week. She may need guardianship with Jagdish's authority in the future should noncompliance become a common issue. Time spent discussing smoking cessation with patient: 3 to 10 minutes Status at Discharge Functional status at discharge: independent ambulation Overall status at discharge: patient is progressing back to baseline Time Spent with Patient Time attestation: Total time managing care of this patient today ____ minutes. Time spent: Greater than 30 minutes Discharge Plan Discharge Anticipated Discharge Date/Time: 04/20/23 12:00 Patient Disposition: Home, Self-Care Discharge Diagnosis: Schizoaffective Disorder, Bipolar Type Referrals: [facility] [Other] - 04/21/23 (fax- [phone] Services to start the day after D/C. The RN will call to set up a visit time. ) Misty Green (therapist): [facility] [Other] - 04/28/23 11:00 am (Appointment is by tele-health) Misty Green (therapist): [facility] [Other] - 04/21/23 11:00 am (Appointment with therapist Tele-health appointment (telephone)) Dr. Owens (psychiatrist): [facility] [Other] - 04/23/23 10:00 am (Hospital Discharge Appointment with Psychiatric provider Appointment is by tele-health) [facility] [Other] - 1 Week (Walk-In Clinic) Discharge Medications: New clozapine 200 mg tablet 200 mg PO BEDTIME Qty: 7 0RF Rx Instructions: Clozapine 250 mg at bedtime. clozapine 50 mg tablet 50 mg PO BEDTIME Qty: 7 0RF Rx Instructions: Clozaril 250 mg bedtime divalproex [Depakote ER] 500 mg tablet extended release 24 hr 500 mg PO BEDTIME Qty: 14 0RF haloperidol 5 mg tablet 5 mg PO BID Qty: 14 0RF atorvastatin [Lipitor] 40 mg tablet 40 mg PO DAILY Qty: 30 0RF docusate sodium [Colace] 100 mg capsule 100 mg PO BID PRN (Reason: constipation) Qty: 60 0RF Jardiance 10 mg tablet 10 mg PO DAILY Qty: 30 0RF folic acid 1 mg tablet 1 mg PO DAILY Qty: 30 0RF ferrous sulfate 324 mg (65 mg iron) tablet,delayed release (DR/EC) 324 mg PO DAILY Qty: 30 0RF magnesium oxide 400 mg magnesium tablet 400 mg PO DAILY Qty: 30 0RF metformin 1,000 mg tablet 1,000 mg PO DAILY Qty: 30 0RF omeprazole 20 mg capsule,delayed release(DR/EC) 20 mg PO DAILY Qty: 30 0RF thiamine HCl (vitamin B1) 100 mg tablet 100 mg PO DAILY Qty: 30 0RF albuterol sulfate [Ventolin HFA] 90 mcg/actuation HFA aerosol inhaler 2 puff inhalation Q4-6H PRN (Reason: wheezing) Qty: 8.5 0RF Discontinued atorvastatin 40 mg tablet 40 mg PO DAILY citalopram [Celexa] 40 mg tablet 40 mg PO DAILY magnesium oxide 400 mg (241.3 mg magnesium) tablet 400 mg PO DAILY pantoprazole 40 mg tablet,delayed release (DR/EC) 40 mg PO DAILY metformin 1,000 mg tablet 1,000 mg PO DAILY lorazepam 1 mg tablet 1 mg PO TID PRN (Reason: Anxiety) albuterol sulfate [Ventolin HFA] 90 mcg/actuation HFA aerosol inhaler 2 puff inhalation Q6H PRN (Reason: Wheezing) ferrous gluconate 324 mg (38 mg iron) tablet 324 mg PO DAILY Jardiance 10 mg tablet 10 mg PO DAILY clozapine 200 mg Tablet 100 mg DAILY Discharge Orders: Discharge Order (Routine); Ordered 04/20/23 Ordered By: Fatmata Brito Diet: Diabetic diet Activity on Discharge: As tolerated Stand Alone Forms: Patient Portal Discharge page, Community Support Care Plan Goals: Mood and Behavioral Stabilization Health Concerns: Mood and Behavioral Stabilization Plan of Treatment: Attend scheduled appointments Take medications as directed Follow up with [facility]/appointments Continue to work with [employer] on renewal of your lease Assessment: No SI, HI, evidence of lam or acute psychosis Discharge Date/Time: 04/20/23 11:55
== END 2023-04-20 11:55 | disposition home or self-care (01) | DRG 750 ==
LOC: HO.ED 03-16 10:26 → HO.PM5 03-17 15:27
PROVIDERS: Emergency Medicine; Nurse Practitioner Family; Physician Assistant Medical; Social Worker; Admitting Provider Psychiatry & Neurology Psychiatry; Emergency Provider Student in an Organized Health Care Education/Training Program; Visit Provider Clinical Nurse Specialist Psychiatric/Mental Health, Adult
DX: F25.0 Schizoaffective disorder, bipolar type (principal); U07.1 COVID-19; E11.9 Type 2 diabetes mellitus without complications; Z79.84 Long term (current) use of oral hypoglycemic drugs; Z79.899 Other long term (current) drug therapy
CPT/HCPCS: 0241U; 36415; 70450; 80053; 80061; 80076; 80143; 80164; 80179; 80307; 81003; 82140; 82550; 82565; 82947; 83036; 83735; 84484; 84702; 85025; 85048; 85610; 85730; 87635; 93005; 99285; J1630; J2060; S9485

== ENCOUNTER → 2023-03-17 14:54 | Outpatient (BNV) | payer OTHER, SELFPAY | PROVIDERS: Admitting Provider Psychiatry & Neurology Psychiatry; Emergency Provider Student in an Organized Health Care Education/Training Program; Visit Provider Psychiatry & Neurology Psychiatry | DX: F25.0 Schizoaffective disorder, bipolar type (principal) | CPT/HCPCS: 99231 ==

== ENCOUNTER → 2023-03-17 14:54 | Outpatient (BNV) | payer OTHER, SELFPAY | PROVIDERS: Admitting Provider Psychiatry & Neurology Psychiatry; Emergency Provider Student in an Organized Health Care Education/Training Program; Visit Provider Clinical Nurse Specialist Psychiatric/Mental Health, Adult | DX: F25.0 Schizoaffective disorder, bipolar type (principal) | CPT/HCPCS: 90792; 99231; 99232; 99239; 99499 ==

== ENCOUNTER 2023-07-09 11:30 | Outpatient (RCR) | payer OTHER, SELFPAY ==
[2023-07-01 11:50] VITALS: BP 90/70; PULSE 92; TEMP 36.7
[2023-07-01 11:57] VITALS: BMI 24.5
--- NOTE | 2023-07-01 13:04 | PC.ADMIT ---
Patient is a 53 year old female who was referred to [facility] by her therapist d/t increased depression, anxiety, and PTSD sxs. Per records patient was recently hospitalized at [facility] inpatient behavioral health unit from 03/17-04/20/23 as she reportedly presented disoriented with slurred speech and responding to internal stimuli. 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 She stated she does not remember how she got to the hospital. Patient has a history of many inpatient admissions. She holds a diagnosis of Schizoaffective disorder, bipolar type. Patient is alert and oriented x4. Calm and cooperative. She presented with depressed mood blunted affect. Speech appears slightly slurred at times. Thoughts are clear and organized. She does not appear to be responding to internal stimuli. Denied AH, VH, or paranoid /delusional thoughts. She reports some passive SI, denied any plans of intent to kill herself. She stated she could never do that to her children. I gave her a copy of her safety plan if needed. Medications reconciled with patient and patient's pharmacy. I called and spoke to patient's ABRAN Ybarra from [facility] to confirm medication list. She stated she has not reconciled Lyndsay's medication list and patient gets her medications from [facility]. She stated she will call me tomorrow and confirm the list. Pharmacy stated they deliver Lyndsay's medications to her home. Patient reports she takes her medications as prescribed and was able to name the doses and frequency of her medications.
--- NOTE | 2023-07-01 14:35 | PC.NURSE ---
Lyndsay will not be able to attend the program on 07/02/23 as she has a scheduled appointment with her psychiatric prescriber Dr. Owens. PHP team is aware.
--- NOTE | 2023-07-02 14:15 | PC.NURSE ---
Addendum entered by Charo Ricks RN 07/02/23 15:07: Lyndsay's VNA Nurse Amada is not administering patient's medications as patient does not want her to. Amada stated she checks on patient weekly and checks her blister packs to see if she is taking her medications. Patient gets her medications delivered to her home by [facility]. Dr Garcia is aware. Original Note: Confirmed Lyndsay's medications with VNA Nurse Amada from [facility] today.
--- NOTE | 2023-07-02 16:01 | HO.PHP ---
Client's case has been opened and reviewed in treatment team.
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
--- NOTE | 2023-07-06 15:49 | PC.NURSE ---
Lyndsay stated she needed to leave early as she was not feeling well c/o nausea and feeling like she is going to vomit. She called her boyfriend who came to pick her up from the program. She plans on coming back tomorrow if feeling better.
--- NOTE | 2023-07-06 16:07 | HO.PHP ---
Lyndsay informed [facility] staff that she was not feeling well and asked to leave for the day. There were no safety concerns presented and she will be here tomorrow.
--- NOTE | 2023-07-07 08:52 | PC.NURSE ---
Lyndsay called this morning and spoke to [facility] staff Laurie and stated she would not be in as she is not feeling well. I called and spoke to Lyndsay who c/o nausea, vomiting, and pelvic pain. She stated she called her OBGYN and told her the symptoms she is experiencing and the soonest they can get her in is Thursday07/08/23 at 2:45. She stated she thinks it is her IUD. I told her if symptoms worsen to go to the ER and she agreed. Dr Garcia is aware.
--- NOTE | 2023-07-07 08:54 | HO.PHP ---
Lyndsay contacted [facility] admin, Laurie, to inform her that she will not be in attendance to program due to vomiting. Lyndsay stated she will be going to her doctor in regards to her illness.
--- NOTE | 2023-07-09 13:58 | PC.NURSE ---
Patient asked to discharge from the program today. She stated she is unable to be here as she is having medical issues. Stated she saw her OBGYN yesterday as she c/o pelvic pain and nausea and thinks it is d/t her Mirena IUD. She stated that she had testing done at her OBGYN and is awaiting results. She also stated she is going to make a f/u appointment with her PCP if the testing comes back negative. She is alert and oriented x4. Calm and cooperative. Denied SI, HI, Ah, VH, or paranoid thoughts. I reviewed her discharge medications with her. She reports taking medications as prescribed.
--- NOTE | 2023-07-10 08:23 | PC.NURSE ---
Lyndsay called this morning to let us know that her OBGYN called and told her she had an infection and that is why she experiencing pelvic pain and nausea. She stated she is going to be given medicine to treat it and her VNA is on her way to see her. She stated when she is better she will call PHP to schedule an intake for admission if needed.
== END 2023-07-09 23:59 | disposition home or self-care (01) ==
LOC: HO.PHPA 11:30
PROVIDERS: Visit Provider Psychiatry & Neurology Psychiatry
DX: F25.0 Schizoaffective disorder, bipolar type (principal); Z79.899 Other long term (current) drug therapy
CPT/HCPCS: 90791; 90853

== ENCOUNTER → 2023-07-09 11:30 | Outpatient (BNV) | payer OTHER, SELFPAY | PROVIDERS: Visit Provider Psychiatry & Neurology Psychiatry | DX: F25.0 Schizoaffective disorder, bipolar type (principal) | CPT/HCPCS: 90792 ==

== ENCOUNTER 2023-09-23 08:30 | Outpatient (RCR) | payer OTHER, SELFPAY ==
[2023-09-10 11:51] VITALS: BP 102/62; PULSE 88; TEMP 36.6
[2023-09-10 11:57] VITALS: BMI 26.0
--- NOTE | 2023-09-10 13:03 | PC.ADMIT ---
Patient is a 53 year old single female who was referred to [facility] by her therapist d/t depression, anxiety, PTSD sxs, intrusive thoughts, images, memories. She holds a dx of Schizoaffective disorder. Patient is alert and oriented x4. She is calm and cooperative. She presented with depressed mood blunted affect. She denied SI or HI. She was given a copy of her safety plan if needed. She is soft spoken and somewhat slow to respond. Speech is slurred at times, she is drooling, on Clozaril. Incontinent of urine when coughing, patient given pads. She reports AH of of things that aren't true that she tries to, fight them off . Telling me negative things, other peoples voices . If she sees someone overweight the AH say to her, fat bastard . She stated these are not her own thoughts. Denied VH. Reports some paranoid thoughts however could not provide an example. 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 She also questioned whether she would go to [facility] if she smokes cigarettes or marijuana. Patient has a history of multiple inpatient admissions. Medications reconciled with patient and patient's pharmacy. Also awaiting call from Shwetha Stevenson to call me back to confirm medications. Patient reports her ABRAN Ybarra is on vacation this week. Patient reports she has been taking her medications as prescribed.
--- NOTE | 2023-09-10 14:22 | HO.PHP ---
Client's case has been opened and reviewed in treatment team.
--- NOTE | 2023-09-10 15:59 | P.HPPSP_ITS ---
[facility] Date of Service: 09/10/23 Chief Complaint: schizoaffective d/o,bipolar,PTSD Sources of Information: patient interviewed, chart reviewed and crisis/core team assessment reviewed [facility] Narrative: Patient is a 53 year old partnered female with history of NIDDM, HLD, and carrying a diagnosis of Schizoaffective Disorder, bipolar type who is referred to [facility]. She was initially referred to [facility] in early July but withdrew from the program due to medical issues. She reports that this issue has since resolved and that she is returning to [facility] for mental health support and says she finds it helpful coming here to the program. She presents with baseline anabaptist del usions and says she has been trying to quit smoking because God wants me to keep joselito in him and that she is afraid of going to Hell due to smoking cigarettes. Despite delusional content, she is not as overtly preoccupied or fixated on anabaptist themes and was generally more conversant on various topics and more engageable and relatable than our previous encounter 2 months ago. She also cites goals of being in the program as trying to stay positive, not isolating, taking better care of myself . She continues to work with her outpatient treaters and reports being compliant with her medication regime which includes clozapine 250 mg/d, VPA 500 mg/d, and PRN Haldol. She lives in an apartment with her autistic son and plans to relocate to her previous home with her partner when her current lease is up at the end of the year. She reports the relationship has been better lately, partner is supportive and denies any major stressors at home. Past Psychiatric History: IP: KEVON Carmona, [place] OP: [facility]; Dr. Roman Casillas Hx of [place] SI: Hx, SA- sort of- OD sleeping pills, hx of connection to God and hospital [facility] Medical History (Updated 09/10/23 @ 15:59 by Chantale Garcia MD) FH: cholecystectomy delivery delivered IBS (irritable bowel syndrome) Barretts esophagus Gastroparesis Bilateral leg edema COPD (chronic obstructive pulmonary disease) Iron deficiency anemia Drug induced constipation Mixed hyperlipidemia History of cervical dysplasia History of abnormal uterine bleeding History of pulmonary thrombosis Controlled type 2 diabetes mellitus with diabetic nephropathy, without long-term current use of insulin Diabetes mellitus IUD (intrauterine device) in place Rib lesion Fatty liver Fibromyalgia Elevated alkaline phosphatase level Schizoaffective disorder, bipolar type Surgical History (Updated 07/10/23 @ 08:47 by Charo Ricks RN) H/O umbilical hernia repair History of tubal ligation Family History: Affirms Social History: Born in [place], mom did what she could Declines to discuss further. Reports she worked hard in school, expressed anger, I got a degree Retired, worked in several jobs. I am disabled yet abled I was fired a lot Currently in relationship with Aurelio for over 10 years, one son 22 yo from this relationship. Lives alone, will move in with Aurelio at the end of the month Legal: I don't know, I know my rights and wrongs . Trauma History: Affirms, of brother Diagnostics Vital Signs (24Hr): Vital Signs - 24 hr 09/10/23 11:51 Temperature 97.9 F Pulse Rate 88 Blood Pressure 102/62 BMI result Body Mass Index 26.0 Meds/Allergies Meds Home Medications ?Medication ?Instructions ?Recorded ?Confirmed ?Type pantoprazole 40 mg tablet,delayed 40 mg PO DAILY 07/02/23 09/10/23 History release clozapine 200 mg tablet 200 mg PO DAILY 09/10/23 09/10/23 History clozapine 50 mg tablet 50 mg PO DAILY 09/10/23 09/10/23 History Allergies Allergies Allergy/AdvReac Type Severity Reaction Status Date / Time Sulfa (Sulfonamide Allergy Severe THROAT Verified 03/15/23 18:22 Antibiotics) SWELLING,RASH [Sulfa (Sulfonamides)] sulfamethoxazole Allergy Severe THROAT Verified 03/15/23 18:22 [From Bactrim] SWELLING,RASH trimethoprim [From Bactrim] Allergy Severe THROAT Verified 03/15/23 18:22 SWELLING,RASH morphine [MORPHINE] Allergy Unknown ANAPHYLAXIS Verified 03/15/23 18:22 Assessment & Plan Assessment & Plan (1) Schizoaffective disorder, bipolar type: Status: Acute Code(s): F25.0 - Schizoaffective disorder, bipolar type (2) Post traumatic stress disorder (PTSD): Status: Acute Code(s): F43.10 - Post-traumatic stress disorder, unspecified (3) JIA (generalized anxiety disorder): Status: Acute Code(s): F41.1 - Generalized anxiety disorder Plan Admit to [facility] VS reviewed: abrefile, BP 102/62;?88 bpm continue other regular medications? Routine lab work ordered EKG, routine for baseline QTc for medication considerations UDS as indicated MassPat reviewed Continue to monitor as per protocol Patient educated on: diagnosis, medication risk/benefits and substance abuse Informed Consent: understands Reason for continued partial hosp. stay Substantial Risk for: inability to function, rapid decompensation and med/psych decompensation Certification I certify that partial hospital treatment is medically necessary due to the symptoms and problems resulting from the patient's mental illness and the failure to treat the patient at the partial hospital level of care would likely result in the patient requiring inpatient psychiatric care which could not be prevented at a less intensive level of care. Time Spent With Patient Time: Total time managing care of this patient today _60___ minutes.
--- NOTE | 2023-09-14 18:24 | P.PNPSP_ITS ---
Subjective Subjective Date of Service: 09/14/23 Reason For Visit: schizoaffective d/o,bipolar,PTSD Interim History: Patient met for follow up appointment. She was pleasant and appropriately conversant. Fixed restorationist delusions remain, but was not overly preoccupied and able to discuss a wide range of topics. We talked about her son and her partner. Plans for son and her to move back home with partner this Fall. Still trying to quit smoking, as not to anger God, but says groups have been supportive and she is not feeling as oppressed by guilt and stress. She continues to sneak cigarettes even while using the 14 mg patches. She relays being motivated to quit but the cravings are strong. I suggest we could back up to 21 mg patches to help with cravings and then she can avoid smoking, she says she really likes this plan. She adds that she has had nothing to drink in over 2 years and thanks the Lord she remains sober. She reports her mood is good for the most part , still some feelings of helplessness. Denies any depressive symptoms, hopelessness or SI. No issues with irritability or anger. Sleep is okay , no bad dreams. Complains of heavy drooling which leaves her pillow soaked in the AM which she is embarrassed by. She is aware it is due to the CLozaril. I suggest we check her labs and see how things look. She has never been treated for the sialorrhea. She had been on other antipsychotics in the past, some of which worked well for her, including Invega, but had caused galactoarrhea, which made her feel like the spirit was moving inside of me . and relays having been preoccupied with being by the Lord. She does not recall is she has been on Rexulti, but many of the other medications sound familiar or she recalls being treated with in the past. She says she would rather take Depakote than Clozaril however it's pointed out that this is not a neuroleptic. She does report doing better than she had been doing in the past. She says she is better able to calm herself when she feels the Devil's presence. I say 'Kaia I command you to leave my presence' and then I feel it works most of the time. I say it to rebuke him. I probably say it at least several times every day . She denies any AH or VH or TH. Appetite is good, eating 2-3 meals a day, some snacks. Weight has been stable in recent months. She periodically slurps extra saliva or wipes the corner of her mouth or can be heard swallowing (a few times over the course of 30 min) she presents with a masked face, mild slowing of motions, likely some parkinsonism, but no TD appreciated and in fact AIMS test conducted today, patient scored 0. Medication Compliance: Yes Side effects from medications: No Attending Groups: Yes Review of Systems Acute medical concerns: No Mental Status Exam Mental Status Exam Narrative: Alert, oriented, in no acute distress. Calm, cooperative, engageable ?mild parkinsonism (facial masking, bradykinesia) Eye contact maintained. Mood anxious, affect blunted with moments of brightening, mood congruent. Speech normal. Thought process circumstantial without tangentiality/FOI/ROJELIO. Thought content related to stressors, positive for restorationist themes, without overt preoccupation, fixed delusions, vague paranoia, otherwise coherent, future- oriented, denies any helplessness, hopelessness or SI.? No aggressive ideation or HI. Insight limited and judgment fair but adequate. Diagnostics Vital Signs (24Hr): BMI result Body Mass Index 26.0 Assessment & Plan Assessment & Plan (1) Schizoaffective disorder, bipolar type: Status: Acute Code(s): F25.0 - Schizoaffective disorder, bipolar type (2) Post traumatic stress disorder (PTSD): Status: Acute Code(s): F43.10 - Post-traumatic stress disorder, unspecified (3) JIA (generalized anxiety disorder): Status: Acute Code(s): F41.1 - Generalized anxiety disorder Plan continue other regular medications? pending lab work, order slip given to patient we discussed considerations including clonidine, atropine, ipratropium or scopalaline patch to address excess drooling alternatively, may consider whether medication reduction or adjustments may improve sialorrhea EKG, routine for baseline QTc for medication considerations UDS as indicated Continue to monitor Patient educated on: diagnosis, medication risk/benefits and medical condition Informed Consent: understands Reason for contiued partial hosp. stay Substantial Risk for: inability to function, rapid decompensation and med/psych decompensation Certification I certify that partial hospital treatment is medically necessary due to the symptoms and problems resulting from the patient's mental illness and the failure to treat the patient at the partial hospital level of care would likely result in the patient requiring inpatient psychiatric care which could not be prevented at a less intensive level of care. Total time managing care of this patient today __30__ minutes. Discharge Plan Discharge Attending provider: Chantale Garcia Medications: New nicotine 21 mg/24 hr patch 24 hour 1 patch transdermal DAILY Qty: 14 0RF Rx Instructions: apply one patch to arm daily, remove patch every night Continued divalproex [Depakote ER] 500 mg tablet extended release 24 hr 500 mg PO BEDTIME Qty: 14 0RF haloperidol 5 mg tablet 5 mg PO BID Qty: 14 0RF atorvastatin [Lipitor] 40 mg tablet 40 mg PO DAILY Qty: 30 0RF docusate sodium [Colace] 100 mg capsule 100 mg PO BID PRN (Reason: constipation) Qty: 60 0RF Jardiance 10 mg tablet 10 mg PO DAILY Qty: 30 0RF ferrous sulfate 324 mg (65 mg iron) tablet,delayed release (DR/EC) 324 mg PO DAILY Qty: 30 0RF magnesium oxide 400 mg magnesium tablet 400 mg PO DAILY Qty: 30 0RF metformin 1,000 mg tablet 1,000 mg PO DAILY Qty: 30 0RF albuterol sulfate [Ventolin HFA] 90 mcg/actuation HFA aerosol inhaler 2 puff inhalation Q4-6H PRN (Reason: wheezing) Qty: 8.5 0RF pantoprazole 40 mg tablet,delayed release (DR/EC) 40 mg PO DAILY clozapine 50 mg tablet 50 mg PO DAILY Rx Instructions: Clozaril 250 mg bedtime clozapine 200 mg tablet 200 mg PO DAILY Rx Instructions: Clozapine 250 mg total dose. lorazepam 1 mg Tablet 1 mg PO TID 15 Days Qty: 45 0RF Stand Alone Forms: Patient Portal Discharge page Patient Education: Schizoaffective Disorder (DC) Print Language: Urdu Telehealth Telehealth Telehealth Platform: Other (please specify) Location of provider rendering services: other (private office) Location of patient: other ([facility]) Patient Identification confirmed using: Name, : Yes Telehealth method: video Patient verbally consented to treatment: Yes
--- NOTE | 2023-09-17 17:43 | HO.IOP ---
PHP Admin, Laurie, informed the PHP team that Lyndsay will not be in attendance to PHP due to being sick.
--- NOTE | 2023-09-22 20:10 | P.PNPSP_ITS ---
Subjective Subjective Date of Service: 09/22/23 Reason For Visit: schizoaffective d/o,bipolar,PTSD Interim History: Patient was seen for follow-up today, she is anticipating discharge tomorrow. She telsl me she was planning to get her labwork done today, but wasn't able to get there in time so still wants to go get it done tomorrow. She reports overall her time here was helpful, she really enjoys the groups and the support from everyone. She says she feels very welcomed here but says leaving is a little tough, as she typically experiences more anxiety as she is heading toward discharge. She reports her mood is pretty good. I feel less anxiety, just anxious about leaving . She has been smoking on and off..it's been a crutch I'm trying to use more coping skills . Sleep has been good up until last 2 nights, which she attributes to upcoming discharge. She feels this will normalize once she is discharged. She is planning to maintain her current schedule of waking early. She had been sleeping in late prior to PHP which she says didnt help her mood. She reports things are good at home. She is feeling good mentally and physically. She denies any SI, HI, AH, VH. Medication Compliance: Yes Side effects from medications: Yes (sialorrhea, no new issues) Attending Groups: Yes Review of Systems Acute medical concerns: No Mental Status Exam Mental Status Exam Narrative: Alert, oriented, in no acute distress. Calm, cooperative, engageable ?mild parkinsonism (facial masking, bradykinesia) Eye contact maintained. Mood anxious, affect blunted with moments of brightening, mood congruent. Speech normal. Thought process circumstantial without tangentiality/FOI/ROJELIO. Thought content related to stressors, positive for zoroastrianism themes/fixed delusions, without overt preoccupation, otherwise coherent, future-oriented, denies any helplessness, hopelessness or SI.? No aggressive ideation or HI. Insight limited and judgment fair but adequate. Diagnostics Vital Signs (24Hr): BMI result Body Mass Index 26.0 Assessment & Plan Assessment & Plan (1) Schizoaffective disorder, bipolar type: Status: Acute Code(s): F25.0 - Schizoaffective disorder, bipolar type (2) Post traumatic stress disorder (PTSD): Status: Acute Code(s): F43.10 - Post-traumatic stress disorder, unspecified (3) JIA (generalized anxiety disorder): Status: Acute Code(s): F41.1 - Generalized anxiety disorder Plan Discharge from [facility] Continue regular medications Refills sent to pharmacy Will defer further medication management to outpatient provider Safety plan reviewed Discharge diagnoses reviewed with patient, as well as treatment course, discharge plan (including medication regime, medication management, potential side effects) as well as treatment rationale were also revisited Patient educated on: diagnosis, medication risk/benefits and substance abuse Informed Consent: understands Reason for contiued partial hosp. stay Substantial Risk for: stable for discharge Certification I certify that partial hospital treatment is medically necessary due to the symptoms and problems resulting from the patient's mental illness and the failure to treat the patient at the partial hospital level of care would likely result in the patient requiring inpatient psychiatric care which could not be prevented at a less intensive level of care. Total time managing care of this patient today ____ minutes. Discharge Plan Discharge Attending provider: Chantale Garcia Medications: New nicotine 21 mg/24 hr patch 24 hour 1 patch transdermal DAILY Qty: 14 0RF Rx Instructions: apply one patch to arm daily, remove patch every night Continued divalproex [Depakote ER] 500 mg tablet extended release 24 hr 500 mg PO BEDTIME Qty: 14 0RF haloperidol 5 mg tablet 5 mg PO BID Qty: 14 0RF atorvastatin [Lipitor] 40 mg tablet 40 mg PO DAILY Qty: 30 0RF docusate sodium [Colace] 100 mg capsule 100 mg PO BID PRN (Reason: constipation) Qty: 60 0RF Jardiance 10 mg tablet 10 mg PO DAILY Qty: 30 0RF ferrous sulfate 324 mg (65 mg iron) tablet,delayed release (DR/EC) 324 mg PO DAILY Qty: 30 0RF magnesium oxide 400 mg magnesium tablet 400 mg PO DAILY Qty: 30 0RF metformin 1,000 mg tablet 1,000 mg PO DAILY Qty: 30 0RF albuterol sulfate [Ventolin HFA] 90 mcg/actuation HFA aerosol inhaler 2 puff inhalation Q4-6H PRN (Reason: wheezing) Qty: 8.5 0RF pantoprazole 40 mg tablet,delayed release (DR/EC) 40 mg PO DAILY clozapine 50 mg tablet 50 mg PO DAILY Rx Instructions: Clozaril 250 mg bedtime clozapine 200 mg tablet 200 mg PO DAILY Rx Instructions: Clozapine 250 mg total dose. lorazepam 1 mg Tablet 1 mg PO TID 15 Days Qty: 45 0RF Stand Alone Forms: Patient Portal Discharge page Patient Education: Schizoaffective Disorder (DC) Print Language: Finnish
--- NOTE | 2023-09-23 16:14 | HO.PHP ---
PHP staff member and Lyndsay reached out to the [facility] to place a referral, in which two Voicemails were left. PHP staff member is awaiting a phone call back. Lyndsay stated that I can continue to work on this after she discharges from the program if they contact back. PHP staff member was receptive.
== END 2023-09-23 23:59 | disposition home or self-care (01) ==
LOC: HO.PHPA 08:30
PROVIDERS: Visit Provider Psychiatry & Neurology Psychiatry
DX: F25.0 Schizoaffective disorder, bipolar type (principal); F43.10 Post-traumatic stress disorder, unspecified; F41.1 Generalized anxiety disorder; Z79.899 Other long term (current) drug therapy
CPT/HCPCS: 90791; 90853

== ENCOUNTER 2023-09-29 08:41 | Outpatient (REF) | payer OTHER, SELFPAY ==
--- NOTE | 2023-09-29 08:50 | ECG_ITS ---
Test Reason : QTC CHECK Blood Pressure : / mmHG Vent. Rate : 078 BPM Atrial Rate : 078 BPM P-R Int : 138 ms QRS Dur : 086 ms QT Int : 382 ms P-R-T Axes : 056 068 049 degrees QTc Int : 435 ms Normal sinus rhythm Normal ECG When compared with ECG of 15-MAR-2023 14:54, Nonspecific T wave abnormality has replaced inverted T waves in Inferior leads Nonspecific T wave abnormality no longer evident in Anterolateral leads Referred By: Chantale Garcia Electronically Signed By:RENETTA VIDES
[2023-09-29 09:16] LABS: MANUAL DIFF FLAG NO
[2023-09-29 09:27] LABS: Basophils Absolute Auto 0.1 X10*3/uL (0.0-0.2); Basophils Percent Auto 1.1 % (0-2); Eosinophils Absolute Auto 0.2 X10*3/uL (0.0-0.4); Eosinophils Percent Auto 1.9 % (0-4); Hemoglobin 13.7 g/dl (12.0-16.0); Imm Gran Abs Auto 0.04 X10*3/uL (0.00-0.03); Imm Gran Pct Auto 0.5 % (0.0-0.4); Lymphocytes Absolute Auto 2.2 X10*3/uL (1.2-4.9); Lymphocytes Percent Auto 28.1 % (20-40); Mean Corpuscular HGB Conc 32.6 g/dl (31.0-35.0); Mean Corpuscular Hemoglobin 27.3 pg (27.0-33.0); Mean Corpuscular Volume 83.8 fL (80.0-98.0); Mean Platelet Volume 9.5 fL (9.4-12.3); Monocytes Absolute Auto 0.6 X10*3/uL (0.1-1.2); Monocytes Percent Auto 7.4 % (2-11); Neutrophils Absolute Auto 4.8 x10*3/uL (2.0-8.3); Platelet Count 252 X10*3/uL (160-400); Red Blood Count 5.01 X10*6/uL (4.20-5.50); Red Cell Distribution Width 14.6 % (11.0-16.0); White Blood Count 7.9 X10*3/uL (4.8-10.8)
[2023-09-29 09:36] LABS: Ammonia 33 umol/L (13-55); Estimated Average Glucose 123 mg/dL; Hemoglobin A1c % 5.9 % (<6.0)
[2023-09-29 09:39] LABS: Appearance Urine Cloudy; Color Urine Yellow; Glucose Urine UA >=1000 mg/dL (Negative); Leukocyte Esterase Urine Negative (Negative); Nitrite Urine Negative (Negative); PH 6.5 (5.0-9.0); Specific Gravity - Urine 1.025 (1.005-1.025); UMIC TRIGGER UA YES; Urine Blood Negative (Negative); Urine Ketones Negative (Negative); Urine Protein Negative (Neg-Trace)
[2023-09-29 09:42] LABS: Valproate 25.3 mcg/mL (50.0-100.0)
[2023-09-29 09:44] LABS: Bacteria Urine 4+ (None Seen); Hyaline Casts Urine 0-2 /LPF (0-2); RBC Urine 0-2 /HPF (0-2); Squamous Epithelial Cell Urine >20 /HPF (0-2)
[2023-09-29 10:12] LABS: Alanine Aminotransferase 17 U/L (0-31); Albumin Level 4.3 g/dL (3.5-5.0); Alkaline Phosphatase 225 U/L (39-117); Anion Gap 13 (12-20); Aspartate Amino Transferase 15 U/L (5-31); Bilirubin Total 0.4 mg/dL (0.0-1.0); Blood Urea Nitrogen 14 mg/dL (9-16); C Reactive Protein 1.17 mg/dL (< or = 0.50); Calcium 9.7 mg/dL (8.4-10.2); Carbon Dioxide 26 mmol/L (22-29); Chloride 106 mmol/L (96-108); Cholesterol 128 mg/dL (<200); Estimated Glomerular Filt Rate > 60; Glucose Fasting 111 mg/dL (60-99); HDL Cholesterol 37 mg/dL (>40); Iron 62 mcg/dL (30-160); LDL Cholesterol Calculated 58 mg/dL (<100); Magnesium 2.3 mg/dL (1.6-2.6); Percent Iron Saturation 21 % (15-50); Potassium 4.1 mmol/L (3.3-5.1); Sodium 141 mmol/L (135-145); Total Iron Binding Capacity 293 mcg/dL (228-428); Total Protein 7.1 g/dL (6.5-8.0); Triglycerides 165 mg/dL (<150); Unsaturated Iron Binding 231 ug/dL
[2023-09-29 10:15] LABS: Erythrocyte Sedimentation Rate 6 MM/HR (0-20)
[2023-09-29 10:16] LABS: Vitamin B12 647 pg/mL (200-900)
[2023-09-29 10:27] LABS: Ferritin 83 ng/mL (10-250); TSH reflex Free T4 2.43 uIU/mL (0.32-4.0); Vitamin D 25-OH Total 24.8 ng/mL (>30)
[2023-10-03 03:33] LABS: Vitamin B1 12 nmol/L (8-30)
[2023-10-04 16:54] LABS: Clozapine (Clozaril) 410 mcg/L; Norclozapine 115 mcg/L (25-400)
[2023-10-05 13:37] LABS: Carnitine Esters 8 umol/L (4-13); Carnitine, Free 29 umol/L (19-48); Carnitine, Total 37 umol/L (25-58); Esterified/Free 0.28 umol/L (0.13-0.42)
== END 2023-09-29 08:42 | disposition home or self-care (01) ==
LOC: HO.LAB 08:41
PROVIDERS: PCP Physician Assistant Medical; Visit Provider Psychiatry & Neurology Psychiatry
DX: F25.0 Schizoaffective disorder, bipolar type (principal); F43.12 Post-traumatic stress disorder, chronic; F41.1 Generalized anxiety disorder
CPT/HCPCS: 36415; 80053; 80061; 80159; 80164; 81001; 82140; 82306; 82379; 82550; 82607; 82728; 82746; 83036; 83540; 83735; 84100; 84134; 84425; 84443; 85025; 85652; 86140; 93005

== ENCOUNTER → 2023-09-29 08:50 | Outpatient (BNV) | payer OTHER, SELFPAY | PROVIDERS: PCP Physician Assistant Medical; Visit Provider Internal Medicine | DX: R94.31 Abnormal electrocardiogram [ECG] [EKG] (principal) | CPT/HCPCS: 93010 ==